=== PATIENT | female | born 1940 | race Caucasian/White ===

== ENCOUNTER → 2017-11-11 09:37 | Outpatient (CLI) | payer OTHER, SELFPAY ==
--- NOTE | 2017-11-11 | DI.MG.S_ITS ---
BILATERAL DIGITAL SCREENING MAMMOGRAM 3D/2D WITH CAD: 11/11/2017 CLINICAL: Routine screening. Family history of breast cancer. Comparison is made to exams dated: 11/01/2016 mammogram, 11/01/2015 mammogram - [facility], and 11/30/2012 mammogram - [facility]. There are scattered fibroglandular elements in both breasts. Current study was also evaluated with a Computer Aided Detection (CAD) system. There is a calcification in the right breast central to the nipple posterior depth. No other significant masses, calcifications, or other findings are seen in either breast. IMPRESSION: INCOMPLETE: NEEDS ADDITIONAL IMAGING EVALUATION The calcification in the right breast is indeterminate. Additional views with possible ultrasound are recommended. This exam was interpreted at Station ID: [id number]. NOTE: For mammograms, a report in lay terms will be sent to the patient. Approximately 15% of breast malignancies will not be visualized mammographically. In the management of a palpable breast mass, a negative mammogram must not discourage biopsy of a clinically suspicious lesion. Electronically Signed By: Shahid duarte/lissy:11/11/2017 16:03:48 copy to: Soledad Goss letter sent: Additional Imaging Needed ACR BI-RADS Category 0: Incomplete 3340F
== END ==
PROVIDERS: Family Provider Internal Medicine; PCP Internal Medicine
DX: Z12.31 Encounter for screening mammogram for malignant neoplasm of breast (principal); Z80.3 Family history of malignant neoplasm of breast; M81.0 Age-related osteoporosis without current pathological fracture; Z78.0 Asymptomatic menopausal state; E07.9 Disorder of thyroid, unspecified; Z87.891 Personal history of nicotine dependence
CPT/HCPCS: 77063; 77067; 77080

== ENCOUNTER → 2017-11-27 12:44 | Outpatient (CLI) | payer OTHER, SELFPAY ==
--- NOTE | 2017-11-27 | DI.MG.S_ITS ---
UNILATERAL RIGHT DIGITAL DIAGNOSTIC MAMMOGRAM 3D/2D WITH ADDITIONAL VIEWS: 11/27/2017 CLINICAL: Additional evaluation requested from prior study. Comparison is made to exams dated: 11/11/2017 mammogram, 11/01/2015 mammogram, and 11/01/2016 mammogram - [facility]. There are scattered fibroglandular elements in the right breast. There are linear calcifications in the right breast central to the nipple posterior depth. These are seen in additional views. No other significant masses or calcifications are seen in the breast. IMPRESSION: BENIGN The linear calcifications in the right breast are consistent with vascular calcifications and are benign. There is no mammographic evidence of malignancy. A 1 year screening mammogram is recommended. This exam was interpreted at Station ID: [id number]. NOTE: For mammograms, a report in lay terms will be sent to the patient. Approximately 15% of breast malignancies will not be visualized mammographically. In the management of a palpable breast mass, a negative mammogram must not discourage biopsy of a clinically suspicious lesion. Electronically Signed By: Ann Vera M.D. lk/:11/27/2017 14:02:20 copy to: Soledad Goss letter sent: Normal Exam ACR BI-RADS Category 2: Benign Finding(s) 3342F
--- NOTE | 2017-11-28 08:47 | DI.ECHO.S_ITS ---
Echocardiogram Report + + :Name: JOESPH HINES Study Date: 11/27/2017 Height: 61 in : :[facility] Weight: 123 lb : : Gender: Female BSA: 1.5 m2 : :: 1940 Age: 77 yrs BP: 128/62 mmHg: :Reason For Study: Fam History of Heart DZ : :Ordering Physician: Soledad : :Wolfgang Performed By: Saloni Mcdaniel : :Referring: TYRELL RADER : + + Interpretation Summary The patient was in atrial fibrillation with heart rates between 95-120 bpm during the exam. There is normal left ventricular wall thickness. The left ventricle is normal in size. The ejection fraction is estimated to be 60-65%. The aortic valve is trileaflet. There is mild aortic regurgitation. The right ventricle is normal in size and function. The right ventricular systolic pressure is estimated at 19 mmHg assuming a right atrial pressure of 3 mm Hg. -Overall this is study shows normal right and left ventricular systolic function with no significant valvular pathology. The filling pressures are normal. Procedure: A two-dimensional transthoracic echocardiogram with color flow and Doppler was performed. The study quality was technically adequate. Comparison is made with the echocardiogram of 08-05-13. The patient was in atrial fibrillation with heart rates between 95-120 bpm during the exam. Left Ventricle: Sigmoid septum. There is normal left ventricular wall thickness. The left ventricle is normal in size. The ejection fraction is estimated to be 60-65%. There are no obvious focal wall motion abnormalities noted but poor endocardial definition reduces the sensitivity for the detection of such. Diastolic function could not be accurately assessed due to atrial fibrillation. Right Ventricle: The right ventricle is normal in size and function. Normal systolic function by visual estimation. Atria: The left atrium is mildly dilated. The right atrium is mildly dilated. The interatrial septum is intact with no evidence for an atrial septal defect. Mitral Valve: The mitral valve leaflets appear mildly thickened, but open well. There is mild to moderate mitral annular calcification. There is moderate mitral regurgitation. Aortic Valve: The aortic valve is trileaflet. The aortic valve opens well. There is mild aortic valve sclerosis. There is discrete nodular thickening of the non- coronary cusp. There is mild aortic regurgitation. Tricuspid Valve: The tricuspid valve leaflets are thin and pliable. There is mild tricuspid regurgitation. The right ventricular systolic pressure is estimated at 19 mmHg assuming a right atrial pressure of 3 mm Hg. Pulmonic Valve: The pulmonic valve is not well visualized. There is trace pulmonic regurgitation. Great Vessels: The aortic root is normal size. The dimensions of the ascending aorta are normal. The aortic arch is normal in size. Abd. aorta is normal in size. The IVC is of normal diameter and collapses greater than 50% with a sniff. This suggests a low right atrial pressure of 3 mm Hg. Pericardium/ Pleura There is no pericardial effusion. There is no pleural effusion. MMode/2D Measurements & Calculations LVIDd: 3.9 cm Ao root diam: 3.2 cm LVIDs: 2.5 cm Aortic Jxn: 2.6 cm FS: 36.2 % asc Aorta Diam: 3.1 cm IVSd: 0.93 cm Ao Arch Diam (Prox Trans): 3.0 cm LVPWd: 0.61 cm LV hsu. diameter/BSA (cm/m^2): 2.6 LV sys. diameter/BSA (cm/m^2): 1.6 LA dimension: 3.9 cm RA long axis: 5.2 cm LA A2 area: 18.5 cm2 RA area: 18.0 cm2 LA A4 area: 19.4 cm2 RA vol: 53.3 ml LA length (vol): 5.1 cm RA : 34.7 ml/m2 LA vol: 59.8 ml IVC diam: 1.7 cm LA vol index: 38.9 ml/m2 RVDd major: 5.1 cm RVD1 (basal): 3.3 cm RVD2 (mid): 2.6 cm Doppler Measurements & Calculations Med Peak E' Alexander: 7.1 cm/sec TR max alexander: 200.4 cm/sec Lat Peak E' Alexander: 12.6 cm/sec TR max P.1 mmHg MV P1/2t: 62.7 msec PA V2 max: 71.5 cm/sec PA V2 mean: 50.3 cm/sec PA mean P.1 mmHg PA Accel Time: 0.11 sec MV V2 mean: 51.7 cm/sec MV P1/2t max alexander: 91.2 cm/sec MV mean P.4 mmHg MVA(P1/2t): 3.5 cm2 MV V2 VTI: 13.5 cm _ Electronically signed by: Clifford Chapman M.D. on Reading Physician:11/28/2017 08:47 AM
== END ==
PROVIDERS: Family Provider Internal Medicine; PCP Internal Medicine
DX: I08.3 Combined rheumatic disorders of mitral, aortic and tricuspid valves (principal); R92.0 Mammographic microcalcification found on diagnostic imaging of breast; I48.91 Unspecified atrial fibrillation; Z82.49 Family history of ischemic heart disease and other diseases of the circulatory system
CPT/HCPCS: 77065; 93306; G0279

== ENCOUNTER → 2017-12-18 09:07 | Outpatient (CLI) | payer OTHER, SELFPAY ==
[2017-12-18 11:02] LABS: BUN Creatinine Ratio 31.4 (6-22); Blood Urea Nitrogen 22 mg/dL (7-17); Calcium 9.3 mg/dL (8.4-10.2); Carbon Dioxide 27 mmol/L (22-32); Chloride 104 mmol/L (98-107); Cholesterol 155 mg/dL (140-199); Estimated Glomerular Filt Rate > 60.0 mL/min (>60); Glucose 84 mg/dL (80-110); HDL Cholesterol 61 mg/dL (40-60); HEMOLYSIS < 15 (0-50); LDL Cholesterol Calculated 82 mg/dL (<100); Potassium 4.3 mmol/L (3.4-5.1); Sodium 142 mmol/L (137-145); Triglycerides 58 mg/dL (35-150)
== END ==
PROVIDERS: PCP Internal Medicine; Visit Provider Internal Medicine
DX: I48.91 Unspecified atrial fibrillation (principal); E78.5 Hyperlipidemia, unspecified
CPT/HCPCS: 36415; 80048; 80061

== ENCOUNTER 2018-01-05 17:02 | Observation (INO) | payer OTHER, SELFPAY ==
[2018-01-05] VITALS (11 sets, daily range): BP systolic 117–169; BP diastolic 43–92; PULSE 63–123; RESP 14–18; TEMP 36.6; O2SAT 97–100; BMI 24.7
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
--- NOTE | 2018-01-05 17:29 | DI.RAD.S_ITS ---
PROCEDURE: XR HIP W PEL IF DONE LT 2V INDICATIONS: fall with groin pain TECHNIQUE: AP pelvis with lateral view(s) of the left hip(s). COMPARISON: [facility], CT, ABDOMEN/PELVIS WITH CONTRAST, 02/04/2016, 5:20. [facility], CR, ABDOMEN ACUTE SERIES, 02/04/2016, 4:37. [facility], CR, FEMUR LEFT, 12/16/2008, 11:50. [facility], , L-SPINE 2-3 VIEWS, 03/19/2017, 15:21. FINDINGS: Bones: There are comminuted left superior and inferior pubic ramal fractures. Pelvic ring appears intact. No suspicious bony lesions. Scoliosis and degenerative changes in lumbar spine. Soft tissues: The visualized bowel gas pattern is normal. No suspicious soft tissue calcifications. IMPRESSION: 1. No left hip fracture or dislocation. 2. Comminuted left superior and inferior pubic ramal fractures. Dictated by: Eleanor Pardo M.D. on 01/05/2018 at 18:39 Approved by: Eleanor Pardo M.D. on 01/05/2018 at 18:42
--- NOTE | 2018-01-05 18:37 | DI.CT.S_ITS ---
PROCEDURE: CT PEL WO CON INDICATIONS: multiple fractures on Xray TECHNIQUE: Noncontrast 3 mm axial sections acquired through the bony pelvis, with coronal and sagittal reformatting. COMPARISON: [facility], CR, XR HIP W PEL IF DONE LT 2V, 01/05/2018, 17:08. FINDINGS: Image quality: Excellent. Bones: There is a comminuted facture of the left superior pubic ramus with mild displacement. In addition, there is a mildly displaced oblique fracture of the left inferior pubic ramus. The hips are anatomically seated. No fracture or dislocation in left hip or proximal femurs. There is a comminuted fracture of the left sacral ala with minimal displacement. Soft tissues: No soft tissue mass or hematoma. There are numerous colonic diverticula. No acute diverticulitis. IMPRESSION: 1. Comminuted fracture of the left superior pubic ramus. 2. Moderate displaced left inferior pubic ramal fracture. 3. Left sacral alar fracture with minimal displacement. 4. Diverticulosis without acute diverticulitis. Dictated by: Eleanor Pardo M.D. on 01/05/2018 at 20:10 Approved by: Eleanor Pardo M.D. on 01/05/2018 at 20:16
[2018-01-05 18:50] LABS: Add Manual Diff / Slide Review NO; Basophils Percent Auto 0.6 % (0-2); Eosinophils Percent Auto 2.9 % (2-4); Hematocrit 41.7 % (36-46); Hemoglobin 13.8 g/dL (12.0-16.0); Lymphocytes Percent Auto 21.2 % (25-40); Mean Corpuscular HGB Conc 33.1 % (30-36); Mean Corpuscular Hemoglobin 27.9 PG (26-34); Mean Corpuscular Volume 84.5 fL (80-100); Monocytes Percent Auto 6.8 % (3-14); Neutrophils Absolute Auto 5700 /uL (3000-5900); Neutrophils Percent Auto 68.5 % (50-75); Platelet Count 261 X10^3/uL (150-400); Red Blood Cell Count 4.94 X10^6/uL (4.0-5.2); Red Cell Distribution Width 15.4 % (11.6-14.8); White Blood Cell Count 8.3 X10^3/uL (4.5-11.0)
[2018-01-05] MEDS: HYDROMORPHONE 0.5 MG INJ IV (19:02)
[2018-01-05] MEDS: SODIUM CHLORIDE 0.9% 1,000 ML 1000 ML IV (19:03)
[2018-01-05] MEDS: ONDANSETRON 4 MG/2 ML INJ IV (19:03)
[2018-01-05 19:34] LABS: BUN Creatinine Ratio 33.8 (6-22); Blood Urea Nitrogen 27 mg/dL (7-17); Calcium 10.2 mg/dL (8.4-10.2); Carbon Dioxide 31 mmol/L (22-32); Chloride 101 mmol/L (98-107); Estimated Glomerular Filt Rate > 60.0 mL/min (>60); Glucose 86 mg/dL (80-110); HEMOLYSIS < 15 (0-50); Potassium 4.1 mmol/L (3.4-5.1); Sodium 140 mmol/L (137-145)
--- NOTE | 2018-01-05 20:11 | PC.NURSE ---
+ 600 cc in bladder after void on bed win 30 min prior to cath placement. MD aware of possible urinary retention. Pt tolerated procedure well.
[2018-01-06 00:05] VITALS: BP 95/53; PULSE 104; RESP 18; TEMP 36.5; O2SAT 97
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
[2018-01-06] MEDS: SODIUM CHLORIDE 0.9% 1,000 ML 125 ML IV (00:47)
[2018-01-06 04:20] VITALS: BP 98/68; PULSE 97; RESP 20; TEMP 36.5; O2SAT 94
[2018-01-06 11:30] VITALS: BP 127/58; PULSE 17; RESP 17; TEMP 36.8; O2SAT 96
--- NOTE | 2018-01-06 13:17 | CM.DANOTE ---
Discharge Planning/Care Management Discharge Assessment Start: 01/06/18 13:11 Freq: Status: Active Protocol: Document 01/06/18 13:11 (Rec: 01/06/18 13:16 [id number]) Discharge Planning Assessment Assigned Application Defense Manager TERRY Monroy Advance Directives? No History Provided By Patient Family Member Medical Record Has Patient been admitted in last 30 No days? Prior Living Arrangements House Household Members spouse Type of transporation used prior to Drives own vehicle admit Independent with ADL's Yes Is patient alert and oriented? Yes Caregiver for Another No Patient/Family Preference Home with Home Health Comment Patient resides on [facility]. Patient is pending ortho consult. Discharge Plan Home with Home Health [facility] Physical Therapy Occupational Therapy Referrals Initiated Home Health Additional Comment Pending Ortho consult. If patient plan is home with home health No : Has signed face to face form been completed? Medicare Choice List Provided Yes SNF/HH Preference [facility]. Whiteboard Updated in Patient Room with Yes name and ext. # of Application Defense Manager Review Status In Process Please Provide Date Initial DC 01/06/18 Assessment Was Performed Next Review Type Continued Stay Review Patient is currently in observation status pending Ortho consult and PT eval. Patient has [facility] and resides on [facility]. Patient and sister were in room. As patient's treatments needs are unsure at this time SW discussed all possible options such as SNF or HH. Patient's goals are to discharge home with . Medicare choice list was provided but since patient resides on [facility] options are limited. SW confirmed with [facility] they accept [place] and service the [place]. Patient agreeable to [facility]. Plan: pending ortho consult and PT eval. At this time patient is hopeful to discharge home with . F2F will be needed and referral to [facility] needs to be completed as there are no progress notes available to SW at this time.
[2018-01-06] MEDS: IBUPROFEN 400 MG TABLET 800 MG PO ×3 (14:40→22:35)
[2018-01-06 15:30] VITALS: BP 104/57; PULSE 97; RESP 20; TEMP 36.7; O2SAT 94; O2SAT 98
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
--- NOTE | 2018-01-06 16:22 | PC.NURSE ---
Addendum entered by Lauren Rodríguez R.N. 01/06/18 17:10: tele removed per md order. shira remains patent. pt states would rather keep it in through the night as it helps with her hopefully being able to sleep. PT/Ot unable to see pt tonight. will see in am. weight bear as tolerated. pt eager to work with them. Original Note: Assumed care of pt from outgoing shift. pt up ion chair, complains of soreness to left hip. fist sized bruise starting to form, some abrasions to elbow and l hip. Pt states she feels better and is excited to work with physical therapy. Pt uses call light and waits for assistance. pt denies further needs at this time. pt compliant and pleasant with staff. vss. will continue to monitor pt for safety.
[2018-01-06] MEDS: DOCUSATE 100 MG CAPSULE PO (20:59)
[2018-01-06 23:20] VITALS: BP 126/72; PULSE 96; RESP 18; TEMP 36.9; O2SAT 98
[2018-01-07] VITALS: O2SAT 98
[2018-01-07 03:29] VITALS: BP 104/64; PULSE 62; RESP 17; TEMP 36.4; O2SAT 97
[2018-01-07] MEDS: IBUPROFEN 400 MG TABLET 800 MG PO (06:38)
[2018-01-07 07:35] VITALS: BP 102/67; PULSE 60; RESP 16; TEMP 36.5; O2SAT 96
[2018-01-07 08:55] VITALS: O2SAT 97
[2018-01-07] MEDS: ASPIRIN EC 81 MG TABLET PO (09:02)
[2018-01-07] MEDS: DOCUSATE 100 MG CAPSULE PO (09:02)
[2018-01-07] MEDS: ACETAMINOPHEN 325 MG TABLET 650 MG PO (10:37)
--- NOTE | 2018-01-07 10:45 | PT.IIE ---
Current Diagnoses Age-related osteoporosis without current pathological fracture (01/05/18) Unspecified fracture of left pubis, initial encounter for closed fracture (01/05/18) Surgical History (Last Reviewed 01/06/18 @ 15:42 by Rhonda Esqueda MD) No pertinent past surgical history (Acute) Medical History (Last Reviewed 01/06/18 @ 15:42 by Rhonda Esqueda MD) Healthy adult (Acute) Physical Therapy Inpatient Evaluation/Re-Eval M1 PT/OT-IP Prior Functional Status Start: 01/06/18 12:33 Freq: NEEDED Status: Active Protocol: Document 01/07/18 10:45 AB (Rec: 01/07/18 12:40 AB [id number]) Medical Review Prior Functional Status Medical History Reviewed Yes Communication able to make needs known Mobility and Gait stated that she is very active prior to hospitalization and independent with all mobilities and ambulation without AD Social History Household Members spouse Living Arrangements House Number of Floors (Floors) One Floor Number of Stairs To Enter/Railing? no steps to enter Home Environment High Toilet Tub/Shower Built-In Shower Seat Home Equipment Front Wheel Walker Straight Cane Raised Toilet Seat w/Armrests Hand Held Shower Grab Bars Near Toilet Grab Bars In Shower Employment Status Retired Additional Social History Comment pt's sister also lives close by and can assist pt M2 PT-IP Current Condition Start: 01/06/18 12:33 Freq: NEEDED Status: Active Protocol: Document 01/07/18 10:45 AB (Rec: 01/07/18 12:40 AB [id number]) Physical Therapy Current Condition Current Condition Evaluation Date 01/07/18 Treatment Diagnosis s/p fall with L pelvic fx; difficulty in walking Onset Date Weight Bearing Status Weight Bearing Status Weight Bear as Tolerated M3 PT-IP Subjective Start: 01/06/18 12:33 Freq: NEEDED Status: Active Protocol: Document 01/07/18 10:45 AB (Rec: 01/07/18 12:40 AB [id number]) Subjective Physical Therapy Visit Type Type Initial Evaluation Visit Start Time 10:45 Visit Stop Time 11:25 Total Visit Minutes 40 Number of GROUT MACHINE TENDER Visits 0 Physical Therapy Visit Comments Patient Comments pt agreeable to do PT Therapy Pain Assessment Pain When Pain Assessed During Mobility Pain Present Pain Present Pain Reported Location Left Groin Intensity 6 Scale Used Numeric (1 - 10) Description Pulling Pain Management Techniques Timing of Activity with Medications M4 PT-IP Mobility and Gait Start: 01/06/18 12:33 Freq: NEEDED Status: Active Protocol: Document 01/07/18 10:45 AB (Rec: 01/07/18 12:40 AB [id number]) PT-Bed Mobility Assessment Supine to Sit Supine to Sit Standby Assistance Sit to Supine Sit to Supine Standby Assistance Scooting Scooting to Edge of Bed Standby Assistance Scooting Up and Down in Bed Standby Assistance PT-Transfer Assessment Sit to and From Stand Sit to and from Stand Standby Assistance Contact Guard Assistance Equipment Transfer Assistive Device Bed Rail Front Wheeled Walker Orthotic/Prosthetic Devices or Brace: No Transfers Transfer Destination Bed Chair Transfer Technique Stand Step Pivot Transfer Ability Level of Assist Standby Assistance Contact Guard Assistance 1 Person Assistance Use of Upper Extremities Gait Assessment Gait Gait Assistance Required: Contact Guard Assist Distance (Feet) 30 Able to Maintain Weight Bearing Status Yes During Gait Assistive Devices Assistive Device Gait Belt Front Wheeled Walker Orthotic/Prosthetic Devices or Brace: No Gait Deviations General Gait Pattern Antalgic Decreased Stride Length Decreased Feet Clearance Factors Limiting Gait Function Factors Limiting Gait Function Decreased Activity Tolerance Decreased Strength Limited Range of Motion Pain Poor Balance Poor Safety Awareness PT-Balance Assessment Sitting Balance and Reactions Static Sitting Balance Ability Good Dynamic Sitting Balance Ability Good Standing Balance and Reactions Static Standing Balance Ability Fair Dynamic Standing Balance Ability Fair Device Used FWW M5 PT-IP Objective Assessments Start: 01/06/18 12:33 Freq: NEEDED Status: Active Protocol: Document 01/07/18 10:45 AB (Rec: 01/07/18 12:40 AB [id number]) Orientation Orientation/Cognition Level of Alertness Alert Orientation Name Age Birthday Month Date Year Day of Week Place Situation Safety Awareness Understands Safety Issues Strength Lower Extremity Strength Assessment Left Impaired Hip 3-/5 Knee 4-/5 Coordination Assessment Gross Coordination Gross Coordination WNL Sensation Assessment Sensation Gross Sensation WNL M6 PT-IP Treatment Start: 01/06/18 12:33 Freq: NEEDED Status: Active Protocol: Document 01/07/18 10:45 AB (Rec: 01/07/18 12:40 AB [id number]) Physical Therapy Treatment Education Education Provided Precautions Weight Bearing Status Safety M7 PT-IP Assessment and Plan Start: 01/06/18 12:33 Freq: NEEDED Status: Active Protocol: Document 01/07/18 10:45 AB (Rec: 01/07/18 12:40 AB [id number]) PT Summary Assessment and Plan Potential Rehabilitation Potential Good Status of Condition at Evaluation Stable Summary Impairments Pain ROM Strength Balance Cognition Bed Mobility Transfers Gait Activity Tolerance Assessment Summary Pt requiring SBA to CGA with mobility using FWW and will have spouse or sister to assist her at home. pt will need homehealth PT at home to improve mobility and ambulation. pt may go home when medically stable. Goals Bed Mobility Goal Independent Transfer Goal Independent Front Wheeled Walker Gait Goal Independent Front Wheel Walker Gait Distance 150 Other Goals short term goals: increase bed mobility and transfers to independent jail goals: increase ambulation using FWW to 150 ft independent Days to Meet Goals 2 Frequency of Treatment Frequency Of Treatment Twice a Day Treatment Plan Physical Therapy Treatment Plan Bed Mobility Training Transfer Training Gait Training Therapeutic Exercise Balance Retraining Post Op Education Discharge Planning Hot or Cold Pack Neuromuscular Re-ed Coordination Retraining Manual Therapy Recommendations To Nursing Amount of Assist Needed 1 Person Assist Discharge Recommendations PT Discharge Recommendations Home with Assistance Home Health
--- NOTE | 2018-01-07 10:45 | PT.IIE ---
Current Diagnoses Age-related osteoporosis without current pathological fracture (01/05/18) Unspecified fracture of left pubis, initial encounter for closed fracture (01/05/18) Surgical History (Last Reviewed 01/06/18 @ 15:42 by Rhonda Esqueda MD) No pertinent past surgical history (Acute) Medical History (Last Reviewed 01/06/18 @ 15:42 by Rhonda Esqueda MD) Healthy adult (Acute) Physical Therapy Inpatient Evaluation/Re-Eval M1 PT/OT-IP Prior Functional Status Start: 01/06/18 12:33 Freq: NEEDED Status: Active Protocol: Document 01/07/18 10:45 AB (Rec: 01/07/18 12:40 AB [id number]) Medical Review Prior Functional Status Medical History Reviewed Yes Communication able to make needs known Mobility and Gait stated that she is very active prior to hospitalization and independent with all mobilities and ambulation without AD Social History Household Members spouse Living Arrangements House Number of Floors (Floors) One Floor Number of Stairs To Enter/Railing? no steps to enter Home Environment High Toilet Tub/Shower Built-In Shower Seat Home Equipment Front Wheel Walker Straight Cane Raised Toilet Seat w/Armrests Hand Held Shower Grab Bars Near Toilet Grab Bars In Shower Employment Status Retired Additional Social History Comment pt's sister also lives close by and can assist pt M2 PT-IP Current Condition Start: 01/06/18 12:33 Freq: NEEDED Status: Active Protocol: Document 01/07/18 10:45 AB (Rec: 01/07/18 12:40 AB [id number]) Physical Therapy Current Condition Current Condition Evaluation Date 01/07/18 Treatment Diagnosis s/p fall with L pelvic fx; difficulty in walking Onset Date Weight Bearing Status Weight Bearing Status Weight Bear as Tolerated M3 PT-IP Subjective Start: 01/06/18 12:33 Freq: NEEDED Status: Active Protocol: Document 01/07/18 10:45 AB (Rec: 01/07/18 12:40 AB [id number]) Subjective Physical Therapy Visit Type Type Initial Evaluation Visit Start Time 10:45 Visit Stop Time 11:25 Total Visit Minutes 40 Number of PROOF LOAD MECHANIC Visits 0 Physical Therapy Visit Comments Patient Comments pt agreeable to do PT Therapy Pain Assessment Pain When Pain Assessed During Mobility Pain Present Pain Present Pain Reported Location Left Groin Intensity 6 Scale Used Numeric (1 - 10) Description Pulling Pain Management Techniques Timing of Activity with Medications M4 PT-IP Mobility and Gait Start: 01/06/18 12:33 Freq: NEEDED Status: Active Protocol: Document 01/07/18 10:45 AB (Rec: 01/07/18 12:40 AB [id number]) PT-Bed Mobility Assessment Supine to Sit Supine to Sit Standby Assistance Sit to Supine Sit to Supine Standby Assistance Scooting Scooting to Edge of Bed Standby Assistance Scooting Up and Down in Bed Standby Assistance PT-Transfer Assessment Sit to and From Stand Sit to and from Stand Standby Assistance Contact Guard Assistance Equipment Transfer Assistive Device Bed Rail Front Wheeled Walker Orthotic/Prosthetic Devices or Brace: No Transfers Transfer Destination Bed Chair Transfer Technique Stand Step Pivot Transfer Ability Level of Assist Standby Assistance Contact Guard Assistance 1 Person Assistance Use of Upper Extremities Gait Assessment Gait Gait Assistance Required: Contact Guard Assist Distance (Feet) 30 Able to Maintain Weight Bearing Status Yes During Gait Assistive Devices Assistive Device Gait Belt Front Wheeled Walker Orthotic/Prosthetic Devices or Brace: No Gait Deviations General Gait Pattern Antalgic Decreased Stride Length Decreased Feet Clearance Factors Limiting Gait Function Factors Limiting Gait Function Decreased Activity Tolerance Decreased Strength Limited Range of Motion Pain Poor Balance Poor Safety Awareness PT-Balance Assessment Sitting Balance and Reactions Static Sitting Balance Ability Good Dynamic Sitting Balance Ability Good Standing Balance and Reactions Static Standing Balance Ability Fair Dynamic Standing Balance Ability Fair Device Used FWW M5 PT-IP Objective Assessments Start: 01/06/18 12:33 Freq: NEEDED Status: Active Protocol: Document 01/07/18 10:45 AB (Rec: 01/07/18 12:40 AB [id number]) Orientation Orientation/Cognition Level of Alertness Alert Orientation Name Age Birthday Month Date Year Day of Week Place Situation Safety Awareness Understands Safety Issues Strength Lower Extremity Strength Assessment Left Impaired Hip 3-/5 Knee 4-/5 Coordination Assessment Gross Coordination Gross Coordination WNL Sensation Assessment Sensation Gross Sensation WNL M6 PT-IP Treatment Start: 01/06/18 12:33 Freq: NEEDED Status: Active Protocol: Document 01/07/18 10:45 AB (Rec: 01/07/18 12:40 AB [id number]) Physical Therapy Treatment Education Education Provided Precautions Weight Bearing Status Safety M7 PT-IP Assessment and Plan Start: 01/06/18 12:33 Freq: NEEDED Status: Active Protocol: Document 01/07/18 10:45 AB (Rec: 01/07/18 12:40 AB [id number]) PT Summary Assessment and Plan Potential Rehabilitation Potential Good Status of Condition at Evaluation Stable Summary Impairments Pain ROM Strength Balance Cognition Bed Mobility Transfers Gait Activity Tolerance Assessment Summary Pt requiring SBA to CGA with mobility using FWW and will have spouse or sister to assist her at home. pt will need homehealth PT at home to improve mobility and ambulation. pt may go home when medically stable. Goals Bed Mobility Goal Independent Transfer Goal Independent Front Wheeled Walker Gait Goal Independent Front Wheel Walker Gait Distance 150 Days to Meet Goals 2 Frequency of Treatment Frequency Of Treatment Twice a Day Treatment Plan Physical Therapy Treatment Plan Bed Mobility Training Transfer Training Gait Training Therapeutic Exercise Balance Retraining Post Op Education Discharge Planning Hot or Cold Pack Neuromuscular Re-ed Coordination Retraining Manual Therapy Recommendations To Nursing Amount of Assist Needed 1 Person Assist Discharge Recommendations PT Discharge Recommendations Home with Assistance Home Health
--- NOTE | 2018-01-07 11:00 | OT.IP.EVAL ---
Current Diagnoses Age-related osteoporosis without current pathological fracture (01/05/18) Unspecified fracture of left pubis, initial encounter for closed fracture (01/05/18) Past Medical History (Last Reviewed 01/06/18 @ 15:42 by Rhonda Esqueda MD) Healthy adult (Acute) Surgical History (Last Reviewed 01/06/18 @ 15:42 by Rhonda Esqueda MD) No pertinent past surgical history (Acute) Occupational Therapy Inpatient Evaluation/Re-Eval M1 PT/OT-IP Prior Functional Status Start: 01/06/18 12:33 Freq: NEEDED Status: Active Protocol: Document 01/07/18 11:00 PJM (Rec: 01/07/18 17:43 PJM [email or web address]) Medical Review Prior Functional Status Medical History Reviewed Yes Diet/Fluid Consistency Regular Communication WNL Mobility and Gait stated that she is very active prior to hospitalization and independent with all mobilities and ambulation without AD Activities of Daily Living and IADL's independent with all self care , IADLS, driving Prior Functional Level (Other details) Pt runs and rides her bike. Social History Household Members spouse Living Arrangements House Number of Floors (Floors) One Floor Number of Stairs To Enter/Railing? no steps to enter Home Environment High Toilet Tub/Shower Built-In Shower Seat Home Equipment Front Wheel Walker Straight Cane Hand Held Shower Grab Bars Near Toilet Grab Bars In Shower Employment Status Retired Additional Social History Comment pt's sister also lives in same building and can assist pt PRN M2 OT-IP Current Condition Start: 01/06/18 14:09 Freq: Status: Active Protocol: Document 01/07/18 11:00 PJM (Rec: 01/07/18 17:43 PJM [email or web address]) Occupational Therapy Current Condition Current Condition Evaluation Date 01/07/18 Treatment Diagnosis decreased self care and functional mobility Diagnosis Onset Date 01/05/18 Weight Bearing Status Weight Bearing Status Weight Bear as Tolerated M3 OT- IP Subjective and Pain Start: 01/06/18 14:09 Freq: Status: Active Protocol: Document 01/07/18 11:00 PJM (Rec: 01/07/18 17:43 PJM [email or web address]) OT- Subjective Occupational Therapy Visit Type Type Initial Evaluation Visit Start Time 09:46 Visit Stop Time 11:00 Total Visit Minutes 74 Notes Pt's sister here for education this session. Occupational Therapy Visit Comments Patient Comments I want to go home on the 1:00 [place] to [place]. Patient/Caregiver Goals to regain independence in self care, IADLS OT Pain Assessment Pain When Pain Assessed After Treatment Pain Present Pain Present Pain Reported Location Left Groin Intensity 3 Scale Used Numeric (1 - 10) Description Aching Acute Pain Behaviors Facial Grimacing Guarding Management Techniques Distraction Re-positioning Timing of Activity with Medications M4 OT- IP ADL's Start: 01/06/18 14:09 Freq: Status: Active Protocol: Document 01/07/18 11:00 PJ (Rec: 01/07/18 17:43 [facility] [id number]) OT [id number] General Evaluation Self-Feeding Ability Independent OT ADL-Grooming General Evaluation Grooming Ability Standby Assistance Comments OT Grooming Comments standing at sink with FWW OT ADL-Oral Care General Eval Oral Care Ability Standby Assistance Comments Oral Care Comments standing at sink with FWW OT ADL-Dressing General Eval Upper Body Dressing Ability Independent Lower Body Dressing Ability Standby Assistance Areas Needing Assistance Underpants/Brief Pants/Shorts Socks Shoes Assistive Devices Dressing Assistive Devices Professor Of Music Comments OT Dressing Comments pt declines sock aid and able to don B socks today without out it. Family can assist PRN. Pt using analytical scientist to don brief and pants. Pt wearing slip on shoes. OT ADL-Toileting General Evaluation Toileting Ability Independent OT ADL-Bathing Bathing Type Bathing Type Shower General Evaluation Bathing Ability Standby Assistance Devices Bathing Equipment Hand Held Shower Sprayer Shower Chair with Arms Grab Bars Comments OT Bathing Comments Pt stood for 90% of shower with no LOB noted. Pt does use grab abrs and installing these today for her . M5 OT- IP IADL's Start: 01/06/18 14:09 Freq: Status: Active Protocol: Document 01/07/18 11:00 PJ (Rec: 01/07/18 17:43 [facility] [id number]) OT-Instrumental Activities of Daily Living Deficits IADL Deficits Identified Deficits Home Safety Awareness Awareness of Need for Assistance at Home Good Awareness Ability to Problem Solve Emergency Able to Problem Solve Situations Medication Management Medication Management No Deficits Identified Money Management Money Management No Deficits Identified Meal Preparation Meal Preparation Caregiver Provides Assist Meal Preparation Comments family to assist PRN Research And Development Specialist Research And Development Specialist Caregiver Provides Assist Research And Development Specialist Comments family to assist PRN Driving Driving Caregiver Provides Assist Driving Comments family to assist PRN M6 OT- IP Functional Cognition Start: 01/06/18 14:09 Freq: Status: Active Protocol: Document 01/07/18 11:00 PJM (Rec: 01/07/18 17:43 PJ [id number]) Cognitive Factors Limiting Selfcare Function Cognitive Ability Level of Alertness Alert Patient Orientation Name Age Birthday Month Date Year Day of Week Place Situation Attention Span Ability Capable of Focused Attention Capable of Sustained Attention Ability to Follow Commands Able to Follow Multi-Step Commands Memory Description No Deficits Noted Safety Awareness No Deficits Noted Problem Solving Ability No deficits Noted Executive Function Ability No Deficits Noted Abstract Thinking Ability No Deficits Noted Cognitive Comments Cognitive Assessment Comments WNL, good problem solving for adapted ADL skills OT- Vision and Hearing OT- Hearing Assessment OT- Hearing Assessment WFL OT- Vision Assessment Vision History Cataracts Visual Acuity Glasses All The Time Vision Assessment Comments B cataract surgery pending per pt M7 OT- IP Mobility and Balance Start: 01/06/18 14:09 Freq: Status: Active Protocol: Document 01/07/18 11:00 PJM (Rec: 01/07/18 17:43 PJ [id number]) OT-Transfer Assessment Sit to and From Stand Sit to and from Stand Standby Assistance Contact Guard Assistance Transfers Transfer Ability Standby Assistance Contact Guard Assistance Technique Transfer Destination Car Chair Shower Stall Toilet Transfer Technique Stand Step Pivot Devices Transfer Assistive Devices Front Wheeled Walker Comments Mobility Comments Provided education and demo re : sit and swivel technique into unusual square bathtub with wide rim and built in corner seat. Also provided education/demo re: car transfers. OT- Gait Assessment Gait Gait Assistance Required: Standby Assistance Contact Guard Assist Distance (Feet) 20 Assistive Devices Assistive Device Gait Belt Front Wheeled Walker Comments Gait Ability Comments Provided education re: gait sequence and technique. OT- Balance Assessment Sitting Balance and Reactions Static Sitting Balance Ability Normal Dynamic Sitting Balance Ability Good Standing Balance and Reactions Static Standing Balance Ability Good Dynamic Standing Balance Ability Good Comments Other Balance Tests/Deviations/Treatment during shower and standing for : lower body dressing M8 OT- IP Objective Assessments Start: 01/06/18 14:09 Freq: Status: Active Protocol: Document 01/07/18 11:00 PJM (Rec: 01/07/18 17:43 PJM [id number]) OT Gross Range of Motion Upper Extremity Range of Motion Assessment Within Functional Limits OT Strength Upper Extremity Strength Assessment Within Functional Limits OT- Coordination Assessment Comments Coordination Comments BUE WFL OT-Muscle Tone Assessment Muscle Tone WNL Yes OT Sensation Assessment Comments Summary Comments BUE WNL M9 OT- IP Assessment and Plan Start: 01/06/18 14:09 Freq: Status: Active Protocol: Document 01/07/18 11:00 PJM (Rec: 01/07/18 17:43 PJM [id number]) OT Summary Assessment and Plan Potential Rehabilitation Potential Excellent Analytic Complexity at Evaluation Low Summary Progress Towards Goals Safe For Discharge Assessment Summary Low complexity OT assessment and all pt/family education completed today re: adapted ADL's, functional bathroom, car transfers on this 77 yr old pt s/p superior pubic rami fx (non surgical, WBAT). Pt very motivated with excellent participation and effort throughout session. Supportive sister and will provide 24 hr assist at d/c PRN. Pt plans to d/c home today. No further OT services needed. Frequency of Treatment Frequency Of Treatment Discharge Discharge Recommendations OT Discharge Recommendations Home with 24/ Assist Home Equipment Needs installing grab bars near tub and shower today.
--- NOTE | 2018-01-07 11:48 | CM.DPC ---
Referral faxed to Treva Enriquez
--- NOTE | 2018-01-07 12:07 | CM.DPC ---
DCP: continued: case received and met with pt and her sister. Pt says she is expecting to d/c today and [place] [facility] [place] up in room with a FWW. Reviewed notes and [facility]. Both do expect pt to d/c today but have seen her yet this morning. Face/Face is completed. OT/PT home health orders are completed. Choice list: discussed with pt. Decision: [place] [facility] [place]erral to :Lucía/[facility] who confirms can see pt within 48 hours. Brochure and update provided to pt and her sister. P: home today once order is received.
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
--- NOTE | 2018-01-07 13:14 | PC.NURSE ---
discharge PIV removed this AM with silva catheter. Pt was able to urinate without issue after silva removal. up with FWW and SBA. worked with PT and OT. was able to shower per her request. d/c instructions provided to pt and her sister. notified to f/u with PCP. HH was set up by program services planner and pt aware she will get call within 48 hr for first visit. pt left in w/c.
== END 2018-01-07 13:00 | disposition home or self-care (01) ==
LOC: ED 19:51 → AC 21:30
PROVIDERS: Admitting Provider Internal Medicine; Emergency Provider Emergency Medicine; Family Provider Internal Medicine; PCP Internal Medicine; Visit Provider Internal Medicine
DX: S32.502A Unspecified fracture of left pubis, initial encounter for closed fracture (principal); S32.10XA Unspecified fracture of sacrum, initial encounter for closed fracture; M81.0 Age-related osteoporosis without current pathological fracture; M25.552 Pain in left hip; V19.3XXA Pedal cyclist (driver) (passenger) injured in unspecified nontraffic accident, initial encounter; Y93.55 Activity, bike riding
CPT/HCPCS: 36591; 51701; 72192; 73502; 80048; 81003; 85025; 93005; 96361; 96374; 96375; 97161; 97165; 97530; 97535; 99284; 99285; G0378; J1170; J2405

== ENCOUNTER 2018-05-20 02:06 | Emergency (ER) | payer OTHER, SELFPAY ==
[2018-01-05 22:28] VITALS: BMI 24.7
--- NOTE | 2018-05-20 02:09 | DI.RAD.S_ITS ---
PROCEDURE: XR CHEST 1V INDICATIONS: chest pain TECHNIQUE: One view of the chest was acquired. COMPARISON: [facility], CHEST 1 VIEW, 02/04/2016, 8:52. [facility], CHEST 1 VIEW, 12/16/2014, 9:03. FINDINGS: Surgical changes and devices: None. Lungs and pleura: Lungs are abnormal, with a mild interstitial prominence it appears accentuated with reference to the comparison from 2016. No pleural effusions or pneumothorax. Mediastinum: Mediastinal contours appear normal. Heart size is normal. Bones and chest wall: No suspicious bony lesions. Overlying soft tissues appear unremarkable. IMPRESSION: Mild interval increase in interstitial prominence within the lung parenchyma from 2016. This could represent an early phase of acute CHF. Cardiomegaly, however, is not present. In the setting of chest pain acute cardiogenic origin may explain this appearance. Dictated by: Corbin Lion M.D. on 05/20/2018 at 7:56 Approved by: Corbin Lion M.D. on 05/20/2018 at 8:02
[2018-05-20 02:10] VITALS: BP 106/72; PULSE 103; RESP 22; TEMP 36.8; O2SAT 100; BMI 23.8
--- NOTE | 2018-05-20 02:14 | ED_ITS ---
HPI - Chest Pain General Chief Complaint: Chest Pain Stated Complaint: Chest pain Time Seen by Provider: 05/20/18 02:09 Source: patient and EMS Mode of arrival: EMS Limitations: no limitations History of Present Illness HPI narrative: Patient is a 77-year-old female who presents with chest pain radiating up into her neck. She said it woke her from her sleep. She does have a history of AFib in AF but no known coronary artery disease. She has received aspirin and nitroglycerin prior to arrival without any relief. She denies any radiation into her back. She does have some pain with inspiration. She says it hurts every time she takes a breath. It does seem to be just going from her epigastric to her chin. She had [place] food at lunch and an apple at dinner. She was feeling well earlier in the day. She is worried because her brother of an aortic dissection MD complaint: chest pain Onset (ago): hour(s) Related Data Home Medications Medication Instructions Recorded Confirmed thyroid (pork) [Nature-Throid] 65 mg PO DAILY #0 06/01/10 01/05/18 Calcium 1 tab PO DAILY 01/05/18 01/05/18 CoQ-10 1 cap PO DAILY 01/05/18 01/05/18 Fish Oil 1 cap PO DAILY 01/05/18 01/05/18 Vitamin D3 1 cap PO DAILY 01/05/18 01/05/18 aspirin 81 mg PO DAILY 01/05/18 01/05/18 magnesium 1 tab PO DAILY 01/05/18 01/05/18 multivitamin 1 tab PO DAILY 01/05/18 01/05/18 Allergies Allergy/AdvReac Type Severity Reaction Status Date / Time prochlorperazine Allergy Unknown Verified 01/05/18 19:01 [PROCHLORPERAZINE] Review of Systems Review of Systems ROS Unobtainable: All systems reviewed & are unremarkable except as noted in HPI and below Constitutional Denies chills, Denies fever(s), Denies lethargy and Denies weakness Cardiovascular Reports as per HPI Gastrointestinal Gastrointestinal: Denies abdominal pain, Denies change in bowel habits, Denies diarrhea, Denies nausea and Denies vomiting Genitourinary Denies hematuria, Denies flank pain, Denies urinary incontinence and Denies urinary urgency Musculoskeletal Denies back pain, Denies muscle weakness, Denies numbness and Denies tingling Integumentary/Breasts Denies pruritus, Denies erythema, Denies rash and Denies wounds Neurologic Denies numbness, Denies tingling and Denies weakness PFSH Medical History Atrial fibrillation (Acute) Healthy adult (Acute) Surgical History No pertinent past surgical history (Acute) Family History Brother Dissecting aneurysm of thoracic aorta Social History household members: spouse Smoking Status: Former smoker alcohol intake: never Family History Brother Dissecting aneurysm of thoracic aorta Social History household members: spouse Smoking Status: Former smoker alcohol intake: never Exam Initial Vital Signs Initial Vital Signs: Vital Signs Temperature 98.2 F 05/20/18 02:10 Pulse Rate 103 H 05/20/18 02:10 Respiratory Rate 22 05/20/18 02:10 Blood Pressure 106/72 05/20/18 02:10 Pulse Oximetry 100 05/20/18 02:10 GENERAL: Alert petite anxious female no acute distress HEENT: Head atraumatic,EOMI, pupils reactive, face symmetric, moist mucous membranes CARDIOVASCULAR: Regular rate and rhythm without murmurs, rubs or gallops. RESPIRATORY: Breath sounds equal bilaterally, no wheezes rales or rhonchi. ABDOMEN: Soft, nontender. Normoactive bowel sounds all 4 quadrants. No guarding or rebound. EXTREMITIES: Normal range of motion, no clubbing or edema. Neurovascularly intact NEUROLOGICAL: Alert and oriented x4.Normal gait and speech. Cranial nerves II through XII grossly intact. SKIN: Warm, dry, no laceration, no petechiae, no rashes or lesions. Course Orders Ordered: ED Orders 05/20/18 02:09 XR chest 1V Stat EKG-12 Lead Stat 05/20/18 02:15 B Type Natriuretic Peptide Stat Complete Blood Count AUTO DIFF Stat Comprehensive Metabolic Panel Stat Lipase Stat Partial Thromboplastin Time Stat Prothrombin Time INR Stat Troponin & CK Cardiac Panel Stat 05/20/18 02:48 Urine Microscopic Stat 05/20/18 03:13 CT angio chest abdomen pelvis Stat 05/20/18 04:15 Troponin I Stat Sodium Chloride (Normal Saline 0.9%) 1,000 mls @ 150 mls/hr IV CONT FAIZA Last Admin: 05/20/18 02:33 Dose: 150 mls/hr Discontinued Medications Morphine Sulfate (Morphine) 2 mg IV NOW ONE Stop: 05/20/18 02:56 Last Admin: 05/20/18 03:17 Dose: 2 mg Ondansetron HCl (Zofran) 4 mg IV NOW ONE Stop: 05/20/18 02:56 Last Admin: 05/20/18 03:17 Dose: 4 mg Pantoprazole Sodium (Protonix) 40 mg IV NOW ONE Stop: 05/20/18 02:10 Last Admin: 05/20/18 02:33 Dose: 40 mg Vital Signs - 8 hr 05/20/18 02:10 05/20/18 03:39 Temperature 98.2 F Pulse Rate 103 H 102 H Respiratory Rate 22 16 Blood Pressure 106/72 Blood Pressure [Right Arm] 111/66 Pulse Oximetry 100 97 MDM - Chest Pain Medical Records Data Attestation: I reviewed the patient's medical records. Lab Data Attestation: I reviewed the patient's lab results. Result diagrams: 05/20/18 02:15 05/20/18 02:15 Lab Results 05/20/18 05/20/18 05/20/18 Range/Units 02:15 02:15 02:15 WBC 11.8 H (4.5-11.0) X10^3/uL RBC 4.90 (4.0-5.2) X10^6/uL Hgb 13.6 (12.0-16.0) g/dL Hct 42.0 (36-46) % MCV 85.7 (80-100) fL MCH 27.8 (26-34) PG MCHC 32.5 (30-36) % RDW 14.5 (11.6-14.8) % Plt Count 291 (150-400) X10^3/uL Neut % (Auto) 72.6 (50-75) % Lymph % (Auto) 19.3 L (25-40) % Lane % (Auto) 6.2 (3-14) % Eos % (Auto) 1.5 L (2-4) % Baso % (Auto) 0.4 (0-2) % Neut # (Auto) 8500 H (9460-1292) /uL Lymph # (Auto) 2300 (4448-1980) /uL Lane # (Auto) 700 (0-900) /uL Eos # (Auto) 200 (0-450) /uL Baso # (Auto) 0 (0-100) /uL PT 10.7 (10.1-12.7) SECONDS INR 0.9 (0.9-1.3) APTT 29 (26.4-36.2) SECONDS Sodium 137 (137-145) mmol/L Potassium 3.4 (3.4-5.1) mmol/L Chloride 102 (98-107) mmol/L Carbon Dioxide 25 (22-32) mmol/L BUN 25 H (7-17) mg/dL Creatinine 0.60 (0.52-1.04) mg/dL Estimated GFR > 60.0 (>60) mL/min BUN/Creatinine Ratio 41.7 H (6-22) Glucose 109 (80-110) mg/dL Calcium 9.2 (8.4-10.2) mg/dL Total Bilirubin 0.2 (0.2-1.3) mg/dL AST 32 (14-36) IU/L ALT 33 (9-52) IU/L Alkaline Phosphatase 115 (38-126) U/L Total Creatine Kinase 91 (30-135) U/L CK-MB (CK-2) TNP CK-MB (CK-2) Rel Index TNP Troponin I < 0.012 (0.01-0.034) ng/mL B-Natriuretic Peptide 328 H (<100) Total Protein 7.6 (6.3-8.2) g/dL Albumin 4.4 (3.5-5.0) g/dL Globulin 3.2 (1.7-4.1) g/dL Albumin/Globulin Ratio 1.4 (1.0-2.8) Lipase 142 (23-300) U/L Urine Dip Bedside Urine Glucose Negative Bedside Urine Bilirubin - Negative Bedside Urine Ketone - Negative Urine Specific [place] 1.020 Bedside Urine Occult Blood + Bedside Urine pH 6.0 Bedside Urine Protein +/- 15 Bedside Urine Urobilinogen - Negative Bedside Urine Nitrite - Negative Bedside Urine Leukocytes ++ [address] angio chest abdomen pelvis: Radiologist's impression: CT angio film processing shift supervisor report: Sequela of granulomatous disease. No evidence of thoracic or abdominal aortic aneurysm. No aortic dissection. Comminuted fractures left. Inferior pubic rami acuity unknown. S shaped scoliotic curvature of the thoracolumbar spine. Low- attenuation hepatic lesions likely representing cysts or hemangiomas ECG Data Attestation: I personally reviewed and interpreted this ECG as follows: Prior ECG tracings: available for review Interpretation: AFib rate 105 MDM Narrative Medical decision making narrative: Patient has received nitroglycerin and aspirin prior to arrival, Protonix, morphine Zofran and Toradol. Her pain is worse with deep breathing better or movement better with deep breathing. This seems to be inflammatory. 2 troponins are negative. Patient's urine does have leukocytes and was sent for micro. Patient has no signs or symptoms of UTI. At this time will not treat UTI. Discharge Plan Departure Prescriptions: No Action thyroid (pork) [Nature-Throid] 65 mg Tablet 65 mg PO DAILY Qty: 0 RF: 0 multivitamin Tablet 1 tab PO DAILY RF: 0 aspirin 81 mg Tablet,Delayed Release (Dr/Ec) 81 mg PO DAILY RF: 0 Calcium 1 tab PO DAILY RF: 0 CoQ-10 1 cap PO DAILY RF: 0 Fish Oil 1 cap PO DAILY RF: 0 Vitamin D3 1 cap PO DAILY RF: 0 magnesium 1 tab PO DAILY RF: 0
[2018-05-20 02:22] LABS: Add Manual Diff / Slide Review NO; Basophils Absolute Auto 0 /uL (0-100); Basophils Percent Auto 0.4 % (0-2); Eosinophils Absolute Auto 200 /uL (0-450); Eosinophils Percent Auto 1.5 % (2-4); Hemoglobin 13.6 g/dL (12.0-16.0); Lymphocytes Absolute Auto 2300 /uL (1100-4500); Lymphocytes Percent Auto 19.3 % (25-40); Mean Corpuscular HGB Conc 32.5 % (30-36); Mean Corpuscular Hemoglobin 27.8 PG (26-34); Mean Corpuscular Volume 85.7 fL (80-100); Monocytes Absolute Auto 700 /uL (0-900); Monocytes Percent Auto 6.2 % (3-14); Neutrophils Absolute Auto 8500 /uL (1500-7000); Neutrophils Percent Auto 72.6 % (50-75); Platelet Count 291 X10^3/uL (150-400); Red Cell Distribution Width 14.5 % (11.6-14.8); White Blood Cell Count 11.8 X10^3/uL (4.5-11.0)
[2018-05-20 02:24] LABS: INR 0.9 (0.9-1.3); Prothrombin Time 10.7 SECONDS (10.1-12.7)
[2018-05-20 02:27] LABS: Alanine Aminotransferase 33 IU/L (9-52); Albumin 4.4 g/dL (3.5-5.0); Albumin Globulin Ratio 1.4 (1.0-2.8); Alkaline Phosphatase 115 U/L (38-126); Aspartate Aminotransferase 32 IU/L (14-36); BUN Creatinine Ratio 41.7 (6-22); Bilirubin Total 0.2 mg/dL (0.2-1.3); Blood Urea Nitrogen 25 mg/dL (7-17); Calcium 9.2 mg/dL (8.4-10.2); Carbon Dioxide 25 mmol/L (22-32); Chloride 102 mmol/L (98-107); Creatine Kinase 91 U/L (30-135); Estimated Glomerular Filt Rate > 60.0 mL/min (>60); Globulin 3.2 g/dL (1.7-4.1); Glucose 109 mg/dL (80-110); HEMOLYSIS 16 (0-50); Lipase 142 U/L (23-300); Potassium 3.4 mmol/L (3.4-5.1); Sodium 137 mmol/L (137-145); Total Protein 7.6 g/dL (6.3-8.2)
[2018-05-20] MEDS: SODIUM CHLORIDE 0.9% 1,000 ML 150 ML IV (02:33)
[2018-05-20] MEDS: PANTOPRAZOLE 40 MG VIAL IV (02:33)
[2018-05-20 02:40] LABS: B Type Natriuretic Peptide 328 (<100)
[2018-05-20 02:44] LABS: Troponin I < 0.012 ng/mL (0.01-0.034)
[2018-05-20 02:52] LABS: PTT Partial Thromboplastin Tim 29 SECONDS (26.4-36.2)
--- NOTE | 2018-05-20 03:13 | DI.CT.S_ITS ---
PROCEDURE: CT ANGIO CHEST ABDOMEN PELVIS INDICATIONS: severe chest pain TECHNIQUE: Precontrast 5 mm thick sections acquired from the lung apices to the iliac crests. After the administration of intravenous contrast, 2.5 mm thick sections again acquired from the lung apices to the iliac crests. Maximum intensity projection (MIP) oblique sagittal and coronal reformats were then acquired. For radiation dose reduction, the following was used: automated exposure control. COMPARISON: None. FINDINGS: Image quality: Excellent. AORTA: Intramural hematoma: Absent Maximum hematoma thickness: Not applicable; greater than 1.1 cm has poorer prognosis. Focal contrast enhancement: Intramural blood pool (< 2 mm neck or imperceptible communication with aortic lumen): Absent. Ulcer-like projection (broad communication with aortic lumen > 3 mm): Absent. Dissection: Absent Cain classification: Not applicable Maximum aortic diameter: 3.3 cm, normal, and the ascending aorta. Periaortic hematoma: Absent. CHEST: Lungs and pleura: No acute airspace opacities. 2 calcified right upper lobe granulomas noted, the largest measures 8 mm at the apex No pleural effusions or pneumothorax. Central and peripheral airways are patent and normal in caliber. Mediastinum: Heart size is normal. No pericardial effusion. No mediastinal or hilar adenopathy by size criteria. Central pulmonary arteries are normal in size. Esophagus is normal in caliber. No hiatal hernias. Bones and chest wall: No axillary adenopathy by size criteria. Thyroid gland contains an 10 mm right thyroid nodule, faintly visualized. No suspicious bony lesions. No vertebral body compression fractures. ABDOMEN: Vasculature: Celiac trunk and mesenteric arteries are patent. Renal arteries are also patent. Solid organs: Liver is normal in size and enhancement. There are several small water density liver cysts. Gallbladder appears normal. Biliary system is non dilated. Pancreas enhances normally. Spleen is normal in size and enhancement. No adrenal nodules. Both kidneys are normal in size and enhancement, without hydronephrosis. Peritoneum and bowel: No free fluid or air. Bowel loops are normal in caliber and wall thickness. Moderate colonic obstipation. Nodes and vessels: No retroperitoneal or mesenteric adenopathy by size criteria. Inferior vena cava is normal in morphology. Miscellaneous: No ventral hernias. PELVIS: Genitourinary: Bladder wall thickness is normal. Miscellaneous: No inguinal hernias or adenopathy. No ventral hernias. Pessary in place. Moderate colonic obstipation. Bones: No suspicious bony lesions. No vertebral body compression fractures. IMPRESSION: 1. Source of acute onset pain is not identified. Several scattered hepatic cysts measuring water in density. Moderate generalized colonic obstipation. In some is made of an 10 mm nodule at the posterior border of the right thyroid lobe, faintly visualized. 2. No aortic aneurysm, dissection, or periaortic hemorrhage is found. Note: These findings are concordant with the preliminary interpretation. Dictated by: Corbin Lion M.D. on 05/20/2018 at 8:02 Approved by: Corbin Lion M.D. on 05/20/2018 at 8:14
[2018-05-20] MEDS: ONDANSETRON 4 MG/2 ML INJ IV (03:17)
[2018-05-20] MEDS: MORPHINE 2 MG/ML INJ IV (03:17)
[2018-05-20 03:39] VITALS: BP 111/66; PULSE 102; RESP 16; O2SAT 97
[2018-05-20 04:00] VITALS: BP 108/76; PULSE 105; RESP 20; O2SAT 96
[2018-05-20 05:30] VITALS: BP 119/67; PULSE 103; RESP 20; O2SAT 96
[2018-05-20 07:21] LABS: Troponin I < 0.012 ng/mL (0.01-0.034)
[2018-05-20 07:35] LABS: Bacteria Urine Few (2-10); RBC Urine 1-5/HPF (0-5/HPF); WBC Urine 30-100/HPF (0-5/HPF)
[2018-05-20 07:36] LABS: Culture Indicated Urine Specimen Cultured
== END 2018-05-20 05:45 | disposition home or self-care (01) ==
PROVIDERS: Emergency Provider Emergency Medicine; Family Provider Internal Medicine; PCP Internal Medicine
DX: R07.9 Chest pain, unspecified (principal); I48.91 Unspecified atrial fibrillation
CPT/HCPCS: 36415; 71045; 71275; 74174; 80053; 81003; 81015; 82550; 83690; 83880; 84484; 85025; 85610; 85730; 87086; 93005; 96361; 96374; 96375; 99283; 99285; C9113; J2270; J2405; Q9967

== ENCOUNTER → 2018-07-01 11:11 | Outpatient (CLI) | payer OTHER, SELFPAY ==
[2018-01-05 22:28] VITALS: BMI 24.7
[2018-07-01 12:34] LABS: Free T3, Triiodothyronine Free 2.93 pg/mL (2.77-5.27); Free T4, Direct Thyroxine 0.76 ng/dL (0.78-2.19)
[2018-07-01 12:48] LABS: Thyroid Stimulating Hormone 2.05 uIU/mL (0.47-4.68)
== END ==
PROVIDERS: PCP Internal Medicine; Visit Provider Physician Assistant
DX: M81.0 Age-related osteoporosis without current pathological fracture (principal)
CPT/HCPCS: 36415; 84439; 84443; 84481

== ENCOUNTER → 2018-09-10 13:34 | Outpatient (CLI) | payer OTHER, SELFPAY ==
[2018-01-05 22:28] VITALS: BMI 24.7
[2018-09-10 15:46] LABS: Free T4, Direct Thyroxine 0.97 ng/dL (0.78-2.19)
[2018-09-10 15:59] LABS: Thyroid Stimulating Hormone 2.12 uIU/mL (0.47-4.68)
== END ==
PROVIDERS: PCP Physician Assistant; Visit Provider Physician Assistant
DX: E03.9 Hypothyroidism, unspecified (principal)
CPT/HCPCS: 36415; 84439; 84443; 84481

== ENCOUNTER → 2018-11-05 16:29 | Outpatient (CLI) | payer OTHER, SELFPAY ==
[2018-01-05 22:28] VITALS: BMI 24.7
[2018-11-05 17:17] LABS: Add Manual Diff / Slide Review NO; Basophils Absolute Auto 100 /uL (0-100); Basophils Percent Auto 0.7 % (0-2); Eosinophils Absolute Auto 0 /uL (0-450); Eosinophils Percent Auto 0.5 % (2-4); Hematocrit 43.5 % (36-46); Hemoglobin 14.5 g/dL (12.0-16.0); Lymphocytes Absolute Auto 1500 /uL (1100-4500); Lymphocytes Percent Auto 20.5 % (25-40); Mean Corpuscular HGB Conc 33.2 % (30-36); Mean Corpuscular Hemoglobin 28.9 PG (26-34); Mean Corpuscular Volume 87.1 fL (80-100); Monocytes Absolute Auto 400 /uL (0-900); Monocytes Percent Auto 5.7 % (3-14); Neutrophils Absolute Auto 5300 /uL (1500-7000); Neutrophils Percent Auto 72.6 % (50-75); Platelet Count 295 X10^3/uL (150-400); White Blood Cell Count 7.3 X10^3/uL (4.5-11.0)
[2018-11-05 18:04] LABS: HEMOLYSIS < 15 (0-50); Iron 114 ug/dL (37-170)
[2018-11-05 18:05] LABS: Alanine Aminotransferase 27 IU/L (9-52); Albumin 4.5 g/dL (3.5-5.0); Albumin Globulin Ratio 1.6 (1.0-2.8); Alkaline Phosphatase 114 U/L (38-126); Aspartate Aminotransferase 29 IU/L (14-36); Bilirubin Total 0.5 mg/dL (0.2-1.3); Blood Urea Nitrogen 24 mg/dL (7-17); Calcium 9.9 mg/dL (8.4-10.2); Carbon Dioxide 27 mmol/L (22-32); Chloride 100 mmol/L (98-107); Estimated Glomerular Filt Rate > 60.0 mL/min (>60); Globulin 2.9 g/dL (1.7-4.1); Glucose 79 mg/dL (80-110); HEMOLYSIS < 15 (0-50); Potassium 4.7 mmol/L (3.4-5.1); Sodium 138 mmol/L (137-145); Total Protein 7.4 g/dL (6.3-8.2)
[2018-11-05 18:15] LABS: Percent Iron Saturation 28 % (15-50); Total Iron Binding Capacity 410 ug/dL (265-497); Transferrin 347 mg/dL (206-381)
[2018-11-05 18:22] LABS: Free T3, Triiodothyronine Free 2.95 pg/mL (2.77-5.27); Free T4, Direct Thyroxine 0.92 ng/dL (0.78-2.19)
[2018-11-05 18:36] LABS: Thyroid Stimulating Hormone 1.88 uIU/mL (0.47-4.68)
[2018-11-05 18:40] LABS: Ferritin 19.8 ng/mL (11.1-264)
== END ==
PROVIDERS: PCP Physician Assistant; Visit Provider Physician Assistant
DX: D50.9 Iron deficiency anemia, unspecified (principal); I48.91 Unspecified atrial fibrillation; E03.9 Hypothyroidism, unspecified
CPT/HCPCS: 36415; 80053; 82728; 83540; 83550; 84439; 84443; 84481; 85025

== ENCOUNTER 2018-11-05 20:34 | Emergency (ER) | payer OTHER, SELFPAY ==
[2018-01-05 22:28] VITALS: BMI 24.7
[2018-11-05 20:45] VITALS: BP 188/95; PULSE 104; RESP 20; TEMP 36.8; O2SAT 99
--- NOTE | 2018-11-05 20:47 | ED.SEIZURE ---
HPI - Seizure General Chief Complaint: Neuro Symptoms/Deficit Stated Complaint: SEIZURES Time Seen by Provider: 11/05/18 20:35 Source: patient Mode of arrival: ambulatory Limitations: no limitations History of Present Illness HPI Narrative: 78-year-old female former smoker presents with her in the chief complaint of a few very brief episodes of confusion over the past few days. She denies any provocation or palliation these episodes. She denies any prodromal symptoms. She denies any focal neurologic findings such as blurred vision, trouble with speech nor numbness, tingling or weakness of extremities. She denies any chest pain or palpitations. She has had no nausea, vomiting or diarrhea. She denies any dysuria, frequency or urgency. She denies any recent medication or diet change. She had significant lab work performed earlier today and became anxious when considering going back home on the [employer] very without obtaining her results so she came to see us to discuss the results. She is at her baseline per her own admission and that of her . She has known atrial fibrillation and has an appointment coming up with cardiology at which point she intends to discuss the use of anticoagulants. She currently does not take them and does not want to despite a discussion of risks and benefits including stroke, permanent disability and even . Her seizure history is thought to be related to a head injury in 1988, her seizures are not generalized tonic-clonic but are partial and she describes them as an absence seizure MD complaint: possible seizure Onset (ago): day(s) Witnessed: no Trauma: No Seizure History: known seizure disorder Place: home Possible Precipitating Event: none Associated symptoms: denies other symptoms Treatments prior to arrival: none Related Data Home Medications Medication Instructions Recorded Confirmed CoQ-10 1 cap PO DAILY 01/05/18 10/07/18 Vitamin D3 1 cap PO DAILY 01/05/18 10/07/18 aspirin 81 mg PO DAILY 01/05/18 10/07/18 multivitamin 1 tab PO DAILY 01/05/18 10/07/18 thyroid (pork) 65 mg tablet 32.5 mg PO DAILY #0 tab 07/01/18 10/07/18 Turmeric 500 mg 1 cap PO BID 10/07/18 10/07/18 calcium citrate 250 mg tablet 250 mg PO DAILY tab 10/07/18 10/07/18 magnesium malate See Rx Instructions .ROUTE .COMPLEX 10/07/18 10/07/18 vitamin B complex tablet 1 tab PO DAILY 10/07/18 10/07/18 Ferrochel Iron Bisglycinate - Now 18 mg PO DAILY 11/02/18 Brand Allergies Allergy/AdvReac Type Severity Reaction Status Date / Time prochlorperazine AdvReac Mild Petechiae Verified 10/07/18 12:44 [PROCHLORPERAZINE] Review of Systems Constitutional Denies chills, Denies fever(s), Denies lethargy and Denies weakness Eyes Denies change in vision, Denies eye discharge, Denies irritation and Denies loss of vision ENT Ears, Nose, Mouth, and Throat: Denies change in voice, Denies neck pain and Denies sore throat Cardiovascular Denies chest pain, Denies irregular heart rhythm, Denies lightheadedness, Denies palpitations, Denies dyspnea, Denies dyspnea on exertion and Denies orthopnea Respiratory Denies cough, Denies dyspnea, Denies dyspnea on exertion and Denies wheezing Gastrointestinal Gastrointestinal: Denies abdominal pain, Denies change in bowel habits, Denies diarrhea, Denies nausea and Denies vomiting Genitourinary Denies hematuria, Denies flank pain, Denies urinary incontinence and Denies urinary urgency Musculoskeletal Denies neck pain Integumentary/Breasts Denies pruritus, Denies erythema, Denies rash and Denies wounds Neurologic Denies confusion, Denies loss of vision and Denies weakness Psychiatric Denies anxiety, Denies confusion, Denies depression, Denies homicidal ideation and Denies suicidal ideation Endocrine Denies palpitations Hematologic/Lymphatic Denies easy bruising Allergic/Immunologic Denies wheezing [facility] Medical History Healthy adult (Acute) Atrial fibrillation (Chronic ~2008) Cataracts, bilateral (Chronic) Disorder of lumbar spine (Chronic) Herniated disc (Chronic) Hypothyroidism (Chronic ~1979) Lumbar compression fracture (Chronic) Melanoma (Chronic ~2016) Partial seizure (Chronic ~1986) Presence of pessary (Chronic ~2006) Scoliosis (Chronic) Skin cancer (Chronic ~2017) Sleep apnea (Chronic) Chicken pox (Resolved) Measles (Resolved) Mumps (Resolved) Surgical History No pertinent past surgical history (Acute) Anesthesia (Resolved) Fracture of left radius (Resolved ~07/2017) History of tonsillectomy and adenoidectomy (Resolved ~194) History of tubal ligation (Resolved ~1970) Family History (Updated 08/12/18 @ 22:13 by Claudia Butterfield) Brother Dissecting aneurysm of thoracic aorta Sister Cancer Social History household members: spouse Smoking Status: Former smoker second hand exposure: No alcohol intake: never substance use type: does not use Family History Brother Dissecting aneurysm of thoracic aorta Sister Cancer Social History household members: spouse Smoking Status: Former smoker second hand exposure: No alcohol intake: never substance use type: does not use Exam Narrative Exam Narrative: GENERAL: 78-year-old female appears stated age, she is anxious but in no other significant or obvious distress HEAD: Atraumatic. Normocephalic. No temporal or scalp tenderness. EYES: Pupils equal round and reactive. Extraocular motions intact. No scleral icterus. No injection or drainage. ENT: Nose without bleeding, purulent drainage or septal hematoma. Throat without erythema, tonsillar hypertrophy or exudate. Uvula midline. Airway patent. NECK: Trachea midline. No JVD or lymphadenopathy. Supple, nontender, no meningeal signs. CARDIOVASCULAR: Irregular rate and rhythm without murmurs, gallops, or rubs. RESPIRATORY: Clear to auscultation. Breath sounds equal bilaterally. No wheezes, rales, or rhonchi. GASTROINTESTINAL: Abdomen soft, non-tender, nondistended. No hepato-splenomegaly, or palpable masses. No guarding. EXTREMITIES: No clubbing, cyanosis, or edema. No joint tenderness, effusion, or edema noted. BACK: Nontender without deformity or crepitance. No flank tenderness. NEURO: AOx3. SKIN: No rash or erythema. Initial Vital Signs Initial Vital Signs: Vital Signs Temperature 98.2 F 11/05/18 20:45 Pulse Rate 104 H 11/05/18 20:45 Respiratory Rate 20 11/05/18 20:45 Blood Pressure 188/95 H 11/05/18 20:45 Pulse Oximetry 99 11/05/18 20:45 Scores CHADS-VASc Congestive heart failure: no Hypertension: no Age 75 years or older: yes Diabetes mellitus: no Stroke, TIA, or TE: no Vascular disease: no Age 65 to 74 years: no Sex category (female): Female CHADS-VASc Score: 3 Course Course Narrative: discussion with patient regarding her labs, nothing terribly exciting, but sugar is a touch low. She is visible relieved by this discussion. We obtained an EKG which finds her in AFib at 90. I had a discussion about her being on anticoagulation and she has been very resistant given her seizure history because she is afraid she will fall and hit her head. She plans to discuss this with cardiology next week. Additionally she has an appointment with neurology next week. Orders Ordered: ED Orders 11/05/18 20:52 Prolactin Stat EKG-12 Lead Stat Vital Signs - 8 hr 11/05/18 20:45 Temperature 98.2 F Pulse Rate 104 H Respiratory Rate 20 Blood Pressure 188/95 H Pulse Oximetry 99 MDM - Seizure Lab Data Point of Care Testing Glucose POC 79 Discharge Plan Departure Patient Disposition: Home Clinical Impression: Anxiety, Hypoglycemia, Feared complaint without diagnosis Instructions: DI for Seizure Disorder -- Adult Activity Restrictions/Additional Instructions: *You have been diagnosed with [ low blood sugar, possible seizure activity, but largely a well check ] *What to do: *Continue to take medications as directed *Follow up with your primary care provider in 2-3 days, call for an appointment. Let them know you were seen in the Emergency Department and that we ask that you be seen in follow up *Return to ER if you should have any new, worsening or concerning symptoms Prescriptions: No Action Nature-Throid 65 mg tablet 32.5 mg PO DAILY Qty: 0 RF: 0 Ferrochel Iron Bisglycinate - Now Brand 18 mg PO DAILY RF: 0 vitamin B complex tablet 1 tab PO DAILY RF: 0 calcium citrate 250 mg calcium tablet 250 mg PO DAILY RF: 0 Turmeric 500 mg 1 cap PO BID RF: 0 magnesium malate See Patient Comments .ROUTE .COMPLEX RF: 0 multivitamin Tablet 1 tab PO DAILY RF: 0 aspirin 81 mg Tablet,Delayed Release (Dr/Ec) 81 mg PO DAILY RF: 0 CoQ-10 1 cap PO DAILY RF: 0 Vitamin D3 1 cap PO DAILY RF: 0 Referrals: Hayley Mckeon PA-C [Primary Care Provider] -
--- NOTE | 2018-11-05 21:12 | PC.NURSE ---
pt reports episode of just go out of it (last at approx 1500) that is not abnormal for her but is concerned about increasing frequency, she spoke with her neurologist who sent her to for outpatient lab work today. She denies further sx since the event this evening, however was concerned about not knowing the results of her lab work today and being unable to come back in the case of an emergency [place] [facility]. Her neuro exam is unremarkable.
[2018-11-05 21:23] LABS: Prolactin 5.3 ng/mL (3.0-18.6)
[2018-11-05 21:24] VITALS: BP 145/90; PULSE 82; O2SAT 97
== END 2018-11-05 21:25 | disposition home or self-care (01) ==
PROVIDERS: Emergency Provider Emergency Medicine; PCP Physician Assistant
DX: F41.9 Anxiety disorder, unspecified (principal); E16.2 Hypoglycemia, unspecified; I48.91 Unspecified atrial fibrillation
CPT/HCPCS: 81003; 82962; 84146; 93005; 99282; 99283

== ENCOUNTER 2019-01-20 07:25 | Emergency (ER) | payer OTHER, SELFPAY ==
[2018-01-05 22:28] VITALS: BMI 24.7
[2019-01-20 07:30] VITALS: BP 134/111; PULSE 91; RESP 17; TEMP 36.7; O2SAT 94
[2019-01-20 07:50] LABS: Add Manual Diff / Slide Review NO; Basophils Absolute Auto 0 /uL (0-100); Basophils Percent Auto 0.3 % (0-2); Eosinophils Absolute Auto 0 /uL (0-450); Eosinophils Percent Auto 0.4 % (2-4); Hematocrit 44.1 % (36-46); Hemoglobin 14.8 g/dL (12.0-16.0); Lymphocytes Absolute Auto 1400 /uL (1100-4500); Lymphocytes Percent Auto 13.4 % (25-40); Mean Corpuscular HGB Conc 33.5 % (30-36); Mean Corpuscular Hemoglobin 29.6 PG (26-34); Mean Corpuscular Volume 88.2 fL (80-100); Monocytes Absolute Auto 400 /uL (0-900); Neutrophils Absolute Auto 8400 /uL (1500-7000); Neutrophils Percent Auto 81.9 % (50-75); Platelet Count 316 X10^3/uL (150-400); Red Cell Distribution Width 14.5 % (11.6-14.8); White Blood Cell Count 10.3 X10^3/uL (4.5-11.0)
[2019-01-20] MEDS: SODIUM CHLORIDE 0.9% 1,000 ML 150 ML IV (08:00)
[2019-01-20 08:01] LABS: Alanine Aminotransferase 26 IU/L (9-52); Albumin 4.4 g/dL (3.5-5.0); Albumin Globulin Ratio 1.4 (1.0-2.8); Alkaline Phosphatase 98 U/L (38-126); Aspartate Aminotransferase 31 IU/L (14-36); Bilirubin Total 0.4 mg/dL (0.2-1.3); Blood Urea Nitrogen 21 mg/dL (7-17); Calcium 9.5 mg/dL (8.4-10.2); Carbon Dioxide 28 mmol/L (22-32); Chloride 101 mmol/L (98-107); Estimated Glomerular Filt Rate > 60.0 mL/min (>60); Globulin 3.2 g/dL (1.7-4.1); Glucose 112 mg/dL (80-110); HEMOLYSIS < 15 (0-50); Lipase 75 U/L (23-300); Potassium 4.2 mmol/L (3.4-5.1); Sodium 137 mmol/L (137-145); Total Protein 7.6 g/dL (6.3-8.2)
--- NOTE | 2019-01-20 08:13 | ED.ABDPAIN ---
HPI - Abdominal Pain General Chief Complaint: Abdominal Pain Stated Complaint: severe abdominal pain Time Seen by Provider: 01/20/19 07:25 Source: patient Mode of arrival: Ambulatory Limitations: no limitations History of Present Illness HPI narrative: 78-year-old female former smoker presents with her with a chief complaint of 7 episodes of loose stool this morning with generalized crampy abdominal pain. She denies any provocation or palliation of the symptoms. She is nauseated but denies vomiting. She has had chills but no fever. She denies recent international travel, exposure to ill persons, bad food or antibiotic use. She has become a bit dizzy and weak. She denies any dietary change or new medications. MD complaint: abdominal pain Onset (ago): hour(s) Pain Consistency: intermittent Location: diffuse Severity: moderate Quality: cramping Radiation: none Relieving factors: nothing Exacerbating factors: nothing Associated symptoms: nausea Related Data Home Medications Medication Instructions Recorded Confirmed CoQ-10 1 cap PO DAILY 01/05/18 01/20/19 Vitamin D3 1 cap PO DAILY 01/05/18 01/20/19 aspirin 81 mg PO DAILY 01/05/18 01/20/19 multivitamin 1 tab PO DAILY 01/05/18 01/20/19 Turmeric 500 mg 1 cap PO BID 10/07/18 01/20/19 calcium citrate 250 mg PO DAILY tab 10/07/18 01/20/19 magnesium malate See Rx Instructions .ROUTE .COMPLEX 10/07/18 01/20/19 vitamin B complex 1 tab PO DAILY 10/07/18 01/20/19 Ferrochel Iron Bisglycinate - Now 18 mg PO DAILY 11/02/18 01/20/19 Brand apixaban 2.5 mg tablet 2.5 mg PO BID 11/11/18 01/20/19 lamotrigine 25 mg PO BID 01/20/19 01/20/19 metoprolol succinate 25 mg PO DAILY 01/20/19 01/20/19 thyroid (pork) [Nature-Throid] 32.5 mg PO QPM 01/20/19 01/20/19 Allergies Allergy/AdvReac Type Severity Reaction Status Date / Time prochlorperazine AdvReac Mild Petechiae Verified 11/11/18 10:10 [PROCHLORPERAZINE] Review of Systems Constitutional Constitutional: Reports chills, Denies fatigue, Denies fever(s), Denies frequent falls, Denies lethargy and Reports weakness Eyes Eyes: Denies change in vision, Denies eye discharge, Denies irritation and Denies loss of vision ENT Ears, Nose, Mouth, and Throat: Denies change in voice, Denies dizziness, Denies neck pain, Denies sore throat and Denies throat swelling Cardiovascular Cardiovascular: Denies chest pain, Denies irregular heart rhythm, Denies lightheadedness, Denies palpitations, Denies dyspnea, Denies dyspnea on exertion and Denies orthopnea Respiratory Respiratory: Denies cough, Denies dyspnea, Denies dyspnea on exertion and Denies wheezing Gastrointestinal Gastrointestinal: Denies abdominal pain, Denies change in bowel habits, Denies diarrhea, Denies nausea and Denies vomiting Genitourinary Genitourinary: Denies hematuria, Denies flank pain, Denies urinary incontinence and Denies urinary urgency Musculoskeletal Musculoskeletal: Denies back pain, Denies muscle weakness, Denies neck pain, Denies numbness and Denies tingling Integumentary/Breasts Skin/Breast: Denies pruritus, Denies erythema, Denies rash and Denies wounds Neurologic Neurologic: Denies behavioral changes, Denies confusion, Denies dizziness, Denies frequent falls, Denies loss of vision, Denies numbness, Denies tingling and Reports weakness Psychiatric Psychiatric: Denies anxiety, Denies behavioral changes, Denies confusion, Denies depression, Denies homicidal ideation and Denies suicidal ideation Endocrine Endocrine: Denies fatigue, Denies flushing and Denies palpitations Hematologic/Lymphatic Hematologic/Lymphatic: Denies easy bruising Allergic/Immunologic Allergic/Immunologic: Denies urticaria, Denies throat swelling and Denies wheezing [facility] Medical History Atrial fibrillation (Chronic ~2008) Cataracts, bilateral (Chronic) Chicken pox (Resolved) Disorder of lumbar spine (Chronic) Healthy adult (Acute) Herniated disc (Chronic) Hypothyroidism (Chronic ~1979) Lumbar compression fracture (Chronic) Measles (Resolved) Melanoma (Chronic ~2017) Mumps (Resolved) Partial seizure (Chronic ~1986) Presence of pessary (Chronic ~2006) Scoliosis (Chronic) Skin cancer (Chronic ~2018) Sleep apnea (Chronic) Surgical History Anesthesia (Resolved) Fracture of left radius (Resolved ~07/2017) History of tonsillectomy and adenoidectomy (Resolved ~1943) History of tubal ligation (Resolved ~1970) No pertinent past surgical history (Acute) Family History Brother Dissecting aneurysm of thoracic aorta Sister Cancer Social History household members: spouse Smoking Status: Former smoker second hand exposure: No alcohol intake: never substance use type: does not use Family History Brother Dissecting aneurysm of thoracic aorta Sister Cancer Social History household members: spouse Smoking Status: Former smoker second hand exposure: No alcohol intake: never substance use type: does not use Exam Narrative Exam Narrative: GENERAL: [78] year old patient appears stated age. Well-nourished, well-developed patient, in mild distress. HEAD: Atraumatic. Normocephalic. EYES: Pupils equal round and reactive. Extraocular motions intact. No scleral icterus. No injection or drainage. ENT: Dry mucous membranes Nose without bleeding, purulent drainage. Throat without erythema, tonsillar hypertrophy or exudate. Airway patent. NECK: Trachea midline. Non tender CARDIOVASCULAR: Regular rate and rhythm without murmurs, gallops, or rubs. RESPIRATORY: Clear to auscultation. Breath sounds equal bilaterally. No wheezes, rales, or rhonchi. GASTROINTESTINAL: Increased sounds in all 4 quadrants Abdomen soft, generalized tenderness, nondistended. EXTREMITIES: No edema or joint tenderness. BACK: Nontender without deformity or crepitance. No flank tenderness. NEURO: AOx3. SKIN: Poor skin turgor No rash or erythema of visible areas Initial Vital Signs Initial Vital Signs: Vital Signs Temperature 98.1 F 01/20/19 07:30 Pulse Rate 91 H 01/20/19 07:30 Respiratory Rate 17 01/20/19 07:30 Blood Pressure 134/111 H 01/20/19 07:30 Pulse Oximetry 94 01/20/19 07:30 Course Orders Ordered: Discontinued Medications Sodium Chloride (Normal Saline 0.9%) 1,000 mls @ 150 mls/hr IV CONT FAIZA Last Infusion: 01/20/19 10:05 Dose: 0 mls/hr Documented by: Admin: 01/20/19 08:00 Dose: 150 mls/hr Documented by: DAVID Ketorolac Tromethamine (Toradol) 15 mg IV NOW ONE Stop: 01/20/19 08:14 Last Admin: 01/20/19 08:15 Dose: 15 mg Documented by: DAVID Vital Signs Vital signs: Vital Signs - 8 hr 01/20/19 10:58 01/20/19 11:00 01/20/19 11:52 Pulse Rate 84 60 Respiratory Rate 21 19 Blood Pressure Blood Pressure [Right Arm] 115/78 132/71 127/74 Pulse Oximetry 99 100 01/20/19 12:01 Pulse Rate 70 Respiratory Rate 16 Blood Pressure 127/74 Blood Pressure [Right Arm] Pulse Oximetry 100 MDM - Abdominal Pain Lab Data Result diagrams: 01/20/19 07:35 01/20/19 07:35 Labs: Lab Results 01/20/19 01/20/19 01/20/19 Range/Units 07:35 07:35 07:35 WBC 10.3 (4.5-11.0) X10^3/uL RBC 5.00 (4.0-5.2) X10^6/uL Hgb 14.8 (12.0-16.0) g/dL Hct 44.1 (36-46) % MCV 88.2 (80-100) fL MCH 29.6 (26-34) PG MCHC 33.5 (30-36) % RDW 14.5 (11.6-14.8) % Plt Count 316 (150-400) X10^3/uL Neut % (Auto) 81.9 H (50-75) % Lymph % (Auto) 13.4 L (25-40) % [place] % (Auto) 4.0 (3-14) % Eos % (Auto) 0.4 L (2-4) % Baso % (Auto) 0.3 (0-2) % Neut # (Auto) 8400 H (6428-1366) /uL Lymph # (Auto) 1400 (3324-3660) /uL [place] # (Auto) 400 (0-900) /uL Eos # (Auto) 0 (0-450) /uL Baso # (Auto) 0 (0-100) /uL Sodium 137 (137-145) mmol/L Potassium 4.2 (3.4-5.1) mmol/L Chloride 101 (98-107) mmol/L Carbon Dioxide 28 (22-32) mmol/L BUN 21 H (7-17) mg/dL Creatinine 0.60 (0.52-1.04) mg/dL Estimated GFR > 60.0 (>60) mL/min BUN/Creatinine Ratio 35.0 H (6-22) Glucose 112 H (80-110) mg/dL Lactate 1.0 (0.7-2.1) mmol/L Calcium 9.5 (8.4-10.2) mg/dL Total Bilirubin 0.4 (0.2-1.3) mg/dL AST 31 (14-36) IU/L ALT 26 (9-52) IU/L Alkaline Phosphatase 98 (38-126) U/L Total Protein 7.6 (6.3-8.2) g/dL Albumin 4.4 (3.5-5.0) g/dL Globulin 3.2 (1.7-4.1) g/dL Albumin/Globulin Ratio 1.4 (1.0-2.8) Lipase 75 (23-300) U/L Urine RBC (0-5/HPF) Urine WBC (0-5/HPF) Ur Squamous Epith Cells (0-5/HPF) Urine Bacteria (None) Ur Culture Indicated? Stl C. cayetanensis PCR (Not Detect) Stool Rotavirus (PCR) (Not Detect) Stool Adenovirus (PCR) (Not Detect) Stool Astrovirus (PCR) (Not Detect) Stool Cryptosporidium PCR (Not Detect) Stl E.coli Shiga Tox PCR (Not Detect) St Sh/Enteroin Ecoli PCR (Not Detect) Stool E coli O157 PCR Stl Enterotoxigenic E PCR (Not Detect) Stool EPEC (PCR) (Not Detect) Stl E. histolytica PCR (Not Detect) Stool Giardia Lamblia PCR (Not Detect) Stl P. shigelloides PCR (Not Detect) St Y.enterocolitica PCR (Not Detect) Stool Vibrio (PCR) (Not Detect) Stl Vibrio cholerae PCR (Not Detect) Stl Enteroaggr Ecoli PCR (Not Detect) Stl Norovirus GI/GII PCR (Not Detect) Campylobacter (PCR) (Not Detect) C. difficile Tox (PCR) (Not Detect) Salmonella (PCR) (Not Detect) 01/20/19 01/20/19 Range/Units 08:50 08:50 WBC (4.5-11.0) X10^3/uL RBC (4.0-5.2) X10^6/uL Hgb (12.0-16.0) g/dL Hct (36-46) % MCV (80-100) fL MCH (26-34) PG MCHC (30-36) % RDW (11.6-14.8) % Plt Count (150-400) X10^3/uL Neut % (Auto) (50-75) % Lymph % (Auto) (25-40) % [place] % (Auto) (3-14) % Eos % (Auto) (2-4) % Baso % (Auto) (0-2) % Neut # (Auto) (1558-5594) /uL Lymph # (Auto) (6881-9405) /uL [place] # (Auto) (0-900) /uL Eos # (Auto) (0-450) /uL Baso # (Auto) (0-100) /uL Sodium (137-145) mmol/L Potassium (3.4-5.1) mmol/L Chloride (98-107) mmol/L Carbon Dioxide (22-32) mmol/L BUN (7-17) mg/dL Creatinine (0.52-1.04) mg/dL Estimated GFR (>60) mL/min BUN/Creatinine Ratio (6-22) Glucose (80-110) mg/dL Lactate (0.7-2.1) mmol/L Calcium (8.4-10.2) mg/dL Total Bilirubin (0.2-1.3) mg/dL AST (14-36) IU/L ALT (9-52) IU/L Alkaline Phosphatase (38-126) U/L Total Protein (6.3-8.2) g/dL Albumin (3.5-5.0) g/dL Globulin (1.7-4.1) g/dL Albumin/Globulin Ratio (1.0-2.8) Lipase (23-300) U/L Urine RBC 1-5/hpf (0-5/HPF) Urine WBC 5-10/hpf H (0-5/HPF) Ur Squamous Epith Cells 0-1 /hpf (0-5/HPF) Urine Bacteria None seen (None) Ur Culture Indicated? Specimen cultured Stl C. cayetanensis PCR Not detected (Not Detect) Stool Rotavirus (PCR) Not detected (Not Detect) Stool Adenovirus (PCR) Not detected (Not Detect) Stool Astrovirus (PCR) Not detected (Not Detect) Stool Cryptosporidium PCR Not detected (Not Detect) Stl E.coli Shiga Tox PCR Not detected (Not Detect) St Sh/Enteroin Ecoli PCR Not detected (Not Detect) Stool E coli O157 PCR Not Reportable Stl Enterotoxigenic E PCR Not detected (Not Detect) Stool EPEC (PCR) Not detected (Not Detect) Stl E. histolytica PCR Not detected (Not Detect) Stool Giardia Lamblia PCR Not detected (Not Detect) Stl P. shigelloides PCR Not detected (Not Detect) St Y.enterocolitica PCR Not detected (Not Detect) Stool Vibrio (PCR) Not detected (Not Detect) Stl Vibrio cholerae PCR Not detected (Not Detect) Stl Enteroaggr Ecoli PCR Not detected (Not Detect) Stl Norovirus GI/GII PCR Not detected (Not Detect) Campylobacter (PCR) Not detected (Not Detect) C. difficile Tox (PCR) Not detected (Not Detect) Salmonella (PCR) Not detected (Not Detect) Discharge Plan Departure Patient Disposition: Home Clinical Impression: Abdominal pain Qualifiers: Abdominal location: generalized Qualified Code(s): R10.84 - Generalized abdominal pain Discharge Date/Time: 01/20/19 12:02 Instructions: DI for Abdominal Pain-Adult Activity Restrictions/Additional Instructions: 1. Drink plenty of fluids with frequent small sips. 2. For the next 24 hours a clear liquid diet is advised. After that please employ a brat diet which would include bananas, rice, apples, toast. 3. Please take medications as directed. 4. Please follow-up with your doctor in the next 1-2 days. Call the office for an appointment. 5. Please return to the emergency Department for any worsening or persistent symptoms, such as increasing pain or fever. Prescriptions: No Action Ferrochel Iron Bisglycinate - Now Brand 18 mg PO DAILY RF: 0 Eliquis 2.5 mg tablet 2.5 mg PO BID RF: 0 vitamin B complex tablet 1 tab PO DAILY RF: 0 calcium citrate 250 mg calcium tablet 250 mg PO DAILY RF: 0 Turmeric 500 mg 1 cap PO BID RF: 0 magnesium malate See Rx Instructions .ROUTE .COMPLEX RF: 0 multivitamin Tablet 1 tab PO DAILY RF: 0 aspirin 81 mg Tablet,Delayed Release (Dr/Ec) 81 mg PO DAILY RF: 0 CoQ-10 1 cap PO DAILY RF: 0 Vitamin D3 1 cap PO DAILY RF: 0 lamotrigine 25 mg tablet 25 mg PO BID RF: 0 metoprolol succinate 25 mg tablet extended release 24 hr 25 mg PO DAILY RF: 0 Nature-Throid 32.5 mg tablet 32.5 mg PO QPM RF: 0 Referrals: Hayley Mckeon PA-C [Primary Care Provider] -
[2019-01-20] MEDS: KETOROLAC 60 MG/2 ML VIAL 15 MG IV (08:15)
[2019-01-20 09:04] LABS: Bacteria Urine None Seen
[2019-01-20 09:06] LABS: Culture Indicated Urine Specimen Cultured; RBC Urine 1-5/HPF (0-5/HPF); Squamous Epithelial Cell Urine 0-1 /HPF (0-5/HPF); WBC Urine 5-10/HPF (0-5/HPF)
[2019-01-20 09:29] VITALS: BP 125/88; PULSE 83; RESP 21; O2SAT 100
[2019-01-20 10:21] LABS: Adenovirus F 40/41 Not Detected (Not Detect); Astrovirus Not Detected (Not Detect); Campylobacter Not Detected (Not Detect); Clostridium difficile toxin AB Not Detected (Not Detect); Cryptosporidium Not Detected (Not Detect); Cyclospora cayetanensis Not Detected (Not Detect); Entamoeba histolytica Not Detected (Not Detect); Enteroaggregative E.coli Not Detected (Not Detect); Enteropathogenic E.coli Not Detected (Not Detect); Enterotoxigenic E.coli It/st Not Detected (Not Detect); Giardia lamblia Not Detected (Not Detect); Norovirus GI/GII Not Detected (Not Detect); Plesiomonsa shigelloides Not Detected (Not Detect); Rotavirus A Not Detected (Not Detect); Salmonella Not Detected (Not Detect); Shiga-like toxin-prod E.coli Not Detected (Not Detect); Shigella/Enteroinvasive E.coli Not Detected (Not Detect); Vibrio Not Detected (Not Detect); Vibrio cholerae Not Detected (Not Detect); Yersinia enterocolitica Not Detected (Not Detect)
[2019-01-20 10:58] VITALS: BP 115/78; PULSE 84; RESP 21; O2SAT 99
[2019-01-20 11:00] VITALS: BP 132/71; PULSE 60; RESP 19; O2SAT 100
[2019-01-20 11:52] VITALS: BP 127/74
[2019-01-20 12:01] VITALS: BP 127/74; PULSE 70; RESP 16; O2SAT 100
== END 2019-01-20 12:02 | disposition home or self-care (01) ==
PROVIDERS: Emergency Provider Emergency Medicine; PCP Physician Assistant
DX: R10.84 Generalized abdominal pain (principal); Z12.31 Encounter for screening mammogram for malignant neoplasm of breast; Z80.3 Family history of malignant neoplasm of breast; I08.3 Combined rheumatic disorders of mitral, aortic and tricuspid valves; I48.91 Unspecified atrial fibrillation; R06.02 Shortness of breath
CPT/HCPCS: 36415; 77063; 77067; 80053; 81015; 83605; 83690; 85025; 87077; 87086; 87507; 93306; 96361; 96374; 99283; 99284; J1885

== ENCOUNTER → 2019-01-20 14:33 | Outpatient (CLI) | payer OTHER, SELFPAY ==
[2018-01-05 22:28] VITALS: BMI 24.7
--- NOTE | 2019-01-20 | DI.ECHO.S_ITS ---
[place] +---------+ [facility] +---------+ : : [id number] : : : : [id number] : : : : Phone: [phone]+ Echocardiogram Report + + :Name: JOESPH HINES Study Date: 01/20/2019 Height: 61 in : :[facility] Exam Location: IS Weight: 130 lb : : Gender: Female BSA: 1.6 m2 : :: 1940 Age: 78 yrs BP: 145/77 mmHg: :Reason For Study: SOB : : Performed By: Lyle Ruby : :Referring: DUDLEY GUIDRY N : + + Interpretation Summary The patient was in atrial fibrillation with heart rates between 73-103 bpm during the exam. The left ventricle is normal in size. The ejection fraction is estimated to be 60-65%. The right ventricle is mildly dilated. The right ventricular systolic function is normal. There is moderate to severe mitral regurgitation. There is moderate to severe tricuspid regurgitation. The right ventricular systolic pressure is estimated to be at least 27 mmHg based on an estimated right atrial pressure of 3 mm Hg. Procedure: A two-dimensional transthoracic echocardiogram with color flow and Doppler was performed. The study quality was technically good. There is no prior echocardiogram noted for this patient. The patient had a heart rate of 73-103 beats per minute. The patient was in atrial fibrillation with heart rates between 73-103 bpm during the exam. Left Ventricle: The left ventricle is normal in size. Proximal septal thickening is noted. There is no echo evidence for significant left ventricular outflow tract obstruction. There is no thrombus. The ejection fraction is estimated to be 60-65%. There are no focal wall motion abnormalities. E/E' med: 11.9. Right Ventricle: The right ventricle is mildly dilated. The right ventricular systolic function is normal. Atria: Both atria are severely dilated. The interatrial septum is intact with no evidence for an atrial septal defect. Mitral Valve: There is mild to moderate mitral annular calcification. There is no evidence of mitral valve prolapse. There is moderate to severe mitral regurgitation. Aortic Valve: The aortic valve is trileaflet. The aortic valve opens well. The aortic valve is slightly calcified. There is no aortic valve stenosis. There is mild aortic regurgitation. Tricuspid Valve: The tricuspid annulus is dilated. Tricuspid leaflets are thickened. There is moderate to severe tricuspid regurgitation. The right ventricular systolic pressure is estimated to be at least 27 mmHg based on an estimated right atrial pressure of 3 mm Hg. Pulmonic Valve: The pulmonic valve is normal in structure and function. There is trace pulmonic regurgitation. Great Vessels: The aortic root is normal size. The dimensions of the ascending aorta are normal. The pulmonary artery is normal size. The IVC is of normal diameter and collapses greater than 50% with a sniff. This suggests a low right atrial pressure of 3 mm Hg. Pericardium/ Pleura There is no pericardial effusion. There is no pleural effusion. MMode/2D Measurements & Calculations LVIDd: 3.8 cm LVOT diam: 2.0 cm LVIDs: 2.5 cm Ao root diam: 3.1 cm FS: 35.7 % Aortic Jxn: 2.7 cm EPSS: 0.14 cm asc Aorta Diam: 3.4 cm IVSd: 0.93 cm Ao Arch Diam (Prox Trans): 2.8 cm LVPWd: 0.97 cm LV hsu. diameter/BSA (cm/m^2): 2.4 LV sys. diameter/BSA (cm/m^2): 1.6 LA dimension: 4.2 cm RA long axis: 5.5 cm LA A2 area: 23.6 cm2 RA area: 23.5 cm2 LA A4 area: 25.5 cm2 RA vol: 84.9 ml LA length (vol): 6.3 cm RA : 54.0 ml/m2 LA vol: 80.8 ml IVC diam: 2.1 cm LA vol index: 51.4 ml/m2 RVD1 (basal): 4.0 cm RVD2 (mid): 3.4 cm Doppler Measurements & Calculations Ao V2 max: 120.2 cm/sec LVOT Max Alexander: 89.0 cm/sec Ao V2 mean: 87.2 cm/sec LV V1 max P.2 mmHg Ao max P.8 mmHg LV V1 VTI: 17.7 cm Ao mean P.3 mmHg SIERRA(I,D): 2.4 cm2 Ao V2 VTI: 22.3 cm SIERRA(V,D): 2.2 cm2 sev ratio: 0.79 SIERRA indexed to BSA (cm^2/m^2): 1.5 AI P1/2t: 736.2 msec AI dec slope: 161.8 cm/sec2 MV E max alexander: 94.6 cm/sec TR max alexander: 242.5 cm/sec MV A max alexander: 3.9 cm/sec TR max P.6 mmHg MV E/A: 24.3 PA V2 max: 70.7 cm/sec Med Peak E' Alexander: 7.9 cm/sec PA V2 mean: 52.1 cm/sec E/E' med: 11.9 PA mean P.2 mmHg Lat Peak E' Alexander: 12.0 cm/sec PA pr(Accel): 44.1 mmHg E/E' lat: 7.9 PA Accel Time: 0.08 sec E/e' average: 9.9 MV dec time: 0.16 sec SV(LVOT): 53.8 ml Reading Physician:06:36 PM
--- NOTE | 2019-01-20 | DI.MG.S_ITS ---
BILATERAL DIGITAL SCREENING MAMMOGRAM 3D/2D WITH CAD: 01/20/2019 CLINICAL: Routine screening. Family history of breast cancer. Comparison is made to exams dated: 11/11/2017 mammogram, 11/01/2016 mammogram, and 11/01/2015 mammogram - [facility]. There are scattered fibroglandular elements in both breasts. Current study was also evaluated with a Computer Aided Detection (CAD) system. No significant masses, calcifications, or other findings are seen in either breast. There has been no significant interval change. IMPRESSION: NEGATIVE There is no mammographic evidence of malignancy. A 1 year screening mammogram is recommended. This exam was interpreted at Station ID: [id number]. NOTE: For mammograms, a report in lay terms will be sent to the patient. Approximately 15% of breast malignancies will not be visualized mammographically. In the management of a palpable breast mass, a negative mammogram must not discourage biopsy of a clinically suspicious lesion. Electronically Signed By: Tyler roland/lissy:01/20/2019 16:55:12 copy to: Soledad Goss letter sent: Normal Exam ACR BI-RADS Category 1: Negative [id number]
== END ==
PROVIDERS: Family Provider Internal Medicine Cardiovascular Disease; PCP Physician Assistant; Visit Provider Nurse Practitioner
DX: Z12.31 Encounter for screening mammogram for malignant neoplasm of breast (principal); Z80.3 Family history of malignant neoplasm of breast
CPT/HCPCS: 77063; 77067; 93306

== ENCOUNTER → 2019-06-02 08:45 | Outpatient (CLI) | payer OTHER, SELFPAY ==
[2018-01-05 22:28] VITALS: BMI 24.7
[2019-06-02 09:55] LABS: Add Manual Diff / Slide Review NO; Basophils Absolute Auto 0 /uL (0-100); Basophils Percent Auto 0.7 % (0-2); Eosinophils Absolute Auto 100 /uL (0-450); Eosinophils Percent Auto 2.3 % (2-4); Hematocrit 42.2 % (36-46); Hemoglobin 14.1 g/dL (12.0-16.0); Lymphocytes Absolute Auto 1500 /uL (1100-4500); Lymphocytes Percent Auto 29.5 % (25-40); Mean Corpuscular HGB Conc 33.3 % (30-36); Mean Corpuscular Hemoglobin 29.6 PG (26-34); Mean Corpuscular Volume 88.8 fL (80-100); Monocytes Absolute Auto 500 /uL (0-900); Monocytes Percent Auto 10.1 % (3-14); Neutrophils Absolute Auto 3000 /uL (1500-7000); Neutrophils Percent Auto 57.4 % (50-75); Platelet Count 283 X10^3/uL (150-400); Red Blood Cell Count 4.76 X10^6/uL (4.0-5.2); Red Cell Distribution Width 14.7 % (11.6-14.8); White Blood Cell Count 5.2 X10^3/uL (4.5-11.0)
[2019-06-02 10:15] LABS: Cholesterol 204 mg/dL (140-199); HDL Cholesterol 50 mg/dL (40-60); LDL Cholesterol Calculated 138 mg/dL (<100); Triglycerides 82 mg/dL (35-150)
[2019-06-02 10:41] LABS: Free T4, Direct Thyroxine 1.01 ng/dL (0.78-2.19)
[2019-06-02 10:55] LABS: Thyroid Stimulating Hormone 1.58 uIU/mL (0.47-4.68)
== END ==
PROVIDERS: Family Provider Internal Medicine Cardiovascular Disease
DX: E03.9 Hypothyroidism, unspecified (principal)
CPT/HCPCS: 36415; 80061; 84439; 84443; 85025

== ENCOUNTER → 2019-10-16 14:08 | Outpatient (CLI) | payer OTHER, SELFPAY ==
[2018-01-05 22:28] VITALS: BMI 24.7
[2019-10-17 08:12] LABS: COVID19 Sendout Not Detected (Not Detect)
== END ==
PROVIDERS: Family Provider Internal Medicine Cardiovascular Disease; Visit Provider Nurse Practitioner
DX: Z01.812 Encounter for preprocedural laboratory examination (principal)
CPT/HCPCS: 87635

== ENCOUNTER 2019-10-19 07:07 | Day surgery (SDC) | payer OTHER, SELFPAY ==
[2018-01-05 22:28] VITALS: BMI 24.7
[2019-10-19] MEDS: PROPARACAINE 0.5% OPHTH SOL 2 DROPS EYE-OP (07:41)
[2019-10-19] MEDS: CATARACT EYE COMPOUND (10 DROPS/SYRINGE) 3 DROPS EYE-OP (07:42)
[2019-10-19 07:44] VITALS: BP 154/76; PULSE 54; RESP 16; TEMP 36.6; O2SAT 97; BMI 23.4
--- NOTE | 2019-10-19 08:11 | PM.PREOP ---
Pre-operative Note Interval Note History & Physical reviewed/Exam performed by Physician: Yes Changes to H&P: No
--- NOTE | 2019-10-19 08:11 | PM.OP.1 ---
Operative Date/Time/Diagnoses Pre-op diagnosis: Nuclear Cataract Left eye Post-op diagnosis: same Procedure & Clinicians Same procedure as scheduled: Yes Surgeon: Blu Wallace Anesthesia Type: MAC +/- and Sedation Operative Notes Procedure in detail: Patient brought to the operating suite. Tetracaine drops placed in the left eye. The vertical and horizontal merdians were marked with the marking instrument. Patient was prepped and draped in sterile manner. Wire lid speculum was placed in the eye. Betadine drops were placed on the eye. This was irrigated. Lidocaine jelly was placed on the eye. A paracentesis port was created with a side-port blade. 0.1 mL 1% preservative free lidocaine was injected into the anterior chamber. The anterior chamber was deepened with viscoelastic. 2.6 mm keratome was used to create a temporal clear corneal incision. Cystotome and Utrata forceps were used to create continuous tear capsulorrhexis. Balanced salt solution was used to hydro dissect the nucleus. The phacoemulsification handpiece was inserted and the nucleus was removed using the stop and chop technique. The irrigation aspiration handpiece was inserted and the remaining cortex was removed. Anterior chamber was deepened with viscoelastic. An Anton [id number] intraocular lens with a power of 22.0 was injected into the capsular bag. Irrigation aspiration handpiece was inserted and the remaining viscoelastic was removed. The lens was rotated to the 180 degree meridian. Incision was hydrated with balanced salt solution and found to be leak free with pressure with Weck-Parul sponges. 0.1 mL Vigamox injected anterior chamber. 0.3 mL Kenalog 10 mg was injected subconjunctivally. Lid speculum was removed. The patient left the operating room in excellent condition. Complications: none Post-operative Condition: stable Disposition: same day surgery
[2019-10-19] MEDS: TRIAMCINOLONE 50 MG/5 ML VIAL INJ (08:24)
[2019-10-19] MEDS: CHONDROIDTIN/SOD HYALURONATE 1.05 ML SYRINGE INTRAOCULA (08:24)
[2019-10-19] MEDS: MOXIFLOXACIN INJ 5 MG/ML VIAL EYE-OP (08:24)
[2019-10-19] MEDS: PHENYLEPHRINE/LIDOCAINE VIAL (OR) 0.2 ML EYE-OP (08:24)
[2019-10-19] MEDS: BALANCED SALT IRRIG SOLN NO.2 500 ML, EPINEPHrine 1 MG IRR (08:25)
[2019-10-19] MEDS: LIDOCAINE JELLY 2% 5 ML 1 APPLIC TOP (08:25)
[2019-10-19] MEDS: TETRACAINE 0.5% OPHTH DROPS 4 ML 2 DROPS EYE-OP (08:25)
[2019-10-19 08:39] VITALS: BP 144/69; PULSE 52; RESP 14; TEMP 36.7; O2SAT 99
== END 2019-10-19 08:56 | disposition home or self-care (01) ==
PROVIDERS: Family Provider Internal Medicine Cardiovascular Disease; Referring Provider Ophthalmology; Visit Provider Ophthalmology
PROC: (CPT 66984; principal; 2019-10-19 08:15)
DX: H25.12 Age-related nuclear cataract, left eye (principal); I48.91 Unspecified atrial fibrillation; G47.30 Sleep apnea, unspecified
CPT/HCPCS: 66984; J0171; J2250; J3301; V2787

== ENCOUNTER → 2019-10-30 12:15 | Outpatient (CLI) | payer OTHER, SELFPAY ==
[2019-10-27 13:35] VITALS: BMI 24.7
[2019-10-31 23:37] LABS: COVID19 Sendout Not Detected (Not Detect)
== END ==
PROVIDERS: Family Provider Internal Medicine Cardiovascular Disease; Visit Provider Physician Assistant
DX: Z01.812 Encounter for preprocedural laboratory examination (principal); Z11.59 Encounter for screening for other viral diseases
CPT/HCPCS: 87635

== ENCOUNTER 2019-11-02 07:00 | Day surgery (SDC) | payer OTHER, SELFPAY ==
[2018-01-05 22:28] VITALS: BMI 24.7
[2019-10-27 13:35] VITALS: BMI 24.7
[2019-11-02] MEDS: PROPARACAINE 0.5% OPHTH SOL 2 DROPS EYE-OP (07:20)
[2019-11-02] MEDS: CATARACT EYE COMPOUND (10 DROPS/SYRINGE) 3 DROPS EYE-OP (07:24)
[2019-11-02 07:32] VITALS: BP 148/75; PULSE 50; RESP 16; TEMP 36.6; O2SAT 97; BMI 23.2
--- NOTE | 2019-11-02 08:03 | PM.PREOP ---
Pre-operative Note Interval Note History & Physical reviewed/Exam performed by Physician: Yes Changes to H&P: No
--- NOTE | 2019-11-02 08:03 | PM.OP.1 ---
Operative Date/Time/Diagnoses Pre-op diagnosis: Nuclear cataract right eye Procedure & Clinicians Procedure: Cataract Surgery Same procedure as scheduled: Yes Surgeon: Blu Wallace Anesthesia Type: MAC +/- and Sedation Operative Notes Procedure in detail: Patient brought to the operating suite. Tetracaine drops placed in the right eye. Marking instrument was used to nubia the vertical and horizontal meridians. Patient was prepped and draped in sterile manner. Wire lid speculum was placed in the eye. Betadine drops were placed on the eye. This was irrigated. Lidocaine jelly was placed on the eye. A paracentesis port was created with a side-port blade. 0.1 mL 1% preservative free lidocaine was injected into the anterior chamber. The anterior chamber was deepened with viscoelastic. 2.6 mm keratome was used to create a temporal clear corneal incision. Cystotome and Utrata forceps were used to create continuous tear capsulorrhexis. Balanced salt solution was used to hydro dissect the nucleus. The phacoemulsification handpiece was inserted and the nucleus was removed using the stop and chop technique. The irrigation aspiration handpiece was inserted and the remaining cortex was removed. Anterior chamber was deepened with viscoelastic. An Anton [id number] intraocular lens with a power of 21.0 was injected into the capsular bag. Irrigation aspiration handpiece was inserted and the remaining viscoelastic was removed. The lens was rotated to the 180 degree meridian. Incision was hydrated with balanced salt solution and found to be leak free with pressure with Weck-Parul sponges. 0.1 mL Vigamox injected anterior chamber. 0.3 mL Kenalog 10 mg was injected subconjunctivally. Lid speculum was removed. The patient left the operating room in excellent condition. Complications: none Post-operative Condition: stable Disposition: same day surgery
[2019-11-02] MEDS: LIDOCAINE JELLY 2% 5 ML 1 APPLIC TOP (08:22)
[2019-11-02] MEDS: CHONDROIDTIN/SOD HYALURONATE 1.05 ML SYRINGE INTRAOCULA (08:22)
[2019-11-02] MEDS: PHENYLEPHRINE/LIDOCAINE VIAL (OR) 0.2 ML EYE-OP (08:23)
[2019-11-02] MEDS: TRIAMCINOLONE 50 MG/5 ML VIAL INJ (08:23)
[2019-11-02] MEDS: MOXIFLOXACIN INJ 5 MG/ML VIAL EYE-OP (08:23)
[2019-11-02] MEDS: TETRACAINE 0.5% OPHTH DROPS 4 ML 2 DROPS EYE-OP (08:23)
[2019-11-02] MEDS: BALANCED SALT IRRIG SOLN NO.2 500 ML, EPINEPHrine 1 MG IRR (08:23)
[2019-11-02 08:43] VITALS: BP 143/76; PULSE 55; RESP 16; TEMP 36.4; O2SAT 99
== END 2019-11-02 08:53 | disposition home or self-care (01) ==
PROVIDERS: Family Provider Internal Medicine Cardiovascular Disease; PCP Family Medicine; Referring Provider Ophthalmology; Visit Provider Ophthalmology
PROC: (CPT 66984; principal; 2019-11-02 08:15)
DX: H25.11 Age-related nuclear cataract, right eye (principal); I48.91 Unspecified atrial fibrillation; G47.33 Obstructive sleep apnea (adult) (pediatric)
CPT/HCPCS: 66984; J0171; J2250; J3301; V2787

== ENCOUNTER → 2019-12-01 12:09 | Outpatient (CLI) | payer OTHER, SELFPAY ==
[2019-10-27 13:35] VITALS: BMI 24.7
[2019-12-01 13:07] LABS: Hemoglobin A1C% w Est Avg Glu 5.4 % (4.0-6.0)
[2019-12-01 13:09] LABS: Alanine Aminotransferase 19 IU/L (<35); Albumin 4.3 g/dL (3.5-5.0); Albumin Globulin Ratio 1.4 (1.0-2.8); Alkaline Phosphatase 84 U/L (38-126); Aspartate Aminotransferase 33 IU/L (14-36); BUN Creatinine Ratio 28.3 (6-22); Bilirubin Total 0.5 mg/dL (0.2-1.3); Blood Urea Nitrogen 17 mg/dL (7-17); Calcium 9.9 mg/dL (8.4-10.2); Carbon Dioxide 33 mmol/L (22-32); Chloride 102 mmol/L (98-107); Estimated Glomerular Filt Rate > 60.0 mL/min (>60); Globulin 3.1 g/dL (1.7-4.1); Glucose 86 mg/dL (80-110); HEMOLYSIS < 15 (0-50); Potassium 4.4 mmol/L (3.4-5.1); Sodium 139 mmol/L (137-145); Total Protein 7.4 g/dL (6.3-8.2)
[2019-12-01 14:00] LABS: Thyroid Stimulating Hormone 1.11 uIU/mL (0.47-4.68)
== END ==
PROVIDERS: Family Provider Internal Medicine Cardiovascular Disease; PCP Family Medicine; Referring Provider Family Medicine; Visit Provider Family Medicine
DX: E03.9 Hypothyroidism, unspecified (principal); I48.0 Paroxysmal atrial fibrillation
CPT/HCPCS: 80053; 83036; 84439; 84443

== ENCOUNTER → 2019-12-08 08:44 | Outpatient (CLI) | payer OTHER, SELFPAY ==
[2019-10-27 13:35] VITALS: BMI 24.7
--- NOTE | 2019-12-08 09:11 | DI.ECHO.S_ITS ---
Echocardiogram Report + + :Name: JOESPH HINES Study Date: 12/08/2019 Height: 61 in : :[facility] Weight: 122 lb : : Gender: Female BSA: 1.5 m2 : :: 1940 Age: 79 yrs BP: 156/92 mmHg: :Reason For Study: Atrial fibrillation : :Ordering Physician: Manny TownsendPerformed By: Melly Card : :Referring: MANNY TOWNSEND N : + + Interpretation Summary Left ventricular systolic function remains normal with an estimated ejection fraction of 55 to 60% without focal wall motion abnormality and appears slightly less dynamic compared to the previous study. There is normal left ventricular size and wall thickness. Diastolic function suggests probable elevated filling pressures. This could not be assessed on the previous study. The right ventricle appears normal. Right ventricular systolic pressure is estimated at 37 mmHg with a CVP of 8 mmHg and may be slightly higher compared to the previous study. Both atria are mildly enlarged but have significantly decreased in size since the previous study. There is moderate mitral regurgitation and moderate tricuspid regurgitation, and both are less prominent compared to the previous study. There is mild aortic valve sclerosis with mild to moderate aortic regurgitation that is unchanged. The patient was in sinus bradycardia at 48 to 52 bpm which is considerably slower compared to the previous exam. Procedure: A two-dimensional transthoracic echocardiogram with color flow and Doppler was performed. The study quality was technically adequate. Comparison is made with the echocardiogram of 01/20/2019. The patient was in sinus bradycardia with heart rates between 48-52 bpm during the exam. This is significantly slower compared to the previous study. Left Ventricle: The left ventricle is normal in size and wall thickness. The estimated left ventricular end diastolic volume is 58 ml. Proximal septal thickening is noted. Left ventricular systolic function is normal without focal wall motion abnormalities. The ejection fraction is estimated to be 55- 60%. This is slightly less dynamic compared to the previous study. Diastolic parameters suggest a pseudonormalization pattern, consistent with probable elevated filling pressures. Right Ventricle: The right ventricle is normal in size and function. This is slightly smaller compared to the previous study. Atria: Both atria are mildly dilated. Both atria have significantly decreased in size since the prior echo exam. There is no Doppler evidence for an interatrial shunt. Mitral Valve: There is mild mitral annular calcification. The mitral valve leaflets appear mildly thickened, but open well. There is moderate mitral regurgitation. This is slightly less prominent compared to the previous study. Aortic Valve: The aortic valve is trileaflet. The aortic valve is slightly calcified. The aortic valve opens well. There is no aortic valve stenosis. There is mild to moderate aortic regurgitation. This is unchanged compared to the previous study. Tricuspid Valve: The tricuspid valve is normal in structure and function. There is moderate tricuspid regurgitation. This is less prominent compared to the previous study. The right ventricular systolic pressure is estimated to be at least 37 mmHg based on an estimated right atrial pressure of 8 mm Hg. Pulmonic Valve: The pulmonic valve is not well seen, but is grossly normal. There is trace pulmonic regurgitation. Great Vessels: The aortic root is normal size. The dimensions of the ascending aorta are normal. The IVC is dilated (diameter is greater than 2.1 cm) yet it collapses greater than 50% with a sniff. This suggests a right atrial pressure of 8 mm Hg. Pericardium/ Pleura There is no pericardial effusion. There is no pleural effusion. MMode/2D Measurements & Calculations LVIDd: 4.6 cm LVOT diam: 2.0 cm LVIDs: 3.4 cm Ao root diam: 3.1 cm FS: 26.8 % asc Aorta Diam: 3.3 cm EPSS: 0.55 cm Ao Arch Diam (Prox Trans): 2.5 cm IVSd: 0.64 cm LVPWd: 0.63 cm LV hsu. diameter/BSA (cm/m^2): 3.0 LV sys. diameter/BSA (cm/m^2): 2.2 LA A2 area: 19.3 cm2 RA long axis: 5.4 cm LA A4 area: 16.6 cm2 RA area: 18.1 cm2 LA length (vol): 4.7 cm RA vol: 52.0 ml LA vol: 58.1 ml RA : 34.0 ml/m2 LA vol index: 38.0 ml/m2 IVC diam: 2.3 cm RVD1 (basal): 3.4 cm TAPSE: 2.4 cm Doppler Measurements & Calculations Ao V2 max: 132.2 cm/sec LVOT Max Alexander: 102.1 cm/sec Ao V2 mean: 79.6 cm/sec LV V1 max P.2 mmHg Ao max P.0 mmHg LV V1 VTI: 26.0 cm Ao mean P.0 mmHg SIERRA(I,D): 2.9 cm2 Ao V2 VTI: 27.9 cm SIERRA(V,D): 2.4 cm2 sev ratio: 0.93 SIERRA indexed to BSA (cm^2/m^2): 1.9 AI P1/2t: 970.9 msec AI dec slope: 123.4 cm/sec2 MV E max alexander: 97.3 cm/sec TR max alexander: 269.8 cm/sec MV A max alexander: 57.4 cm/sec TR max P.1 mmHg MV E/A: 1.7 PA V2 max: 64.5 cm/sec Med Peak E' Alexander: 4.9 cm/sec PA V2 mean: 39.7 cm/sec E/E' med: 19.7 PA mean P.75 mmHg Lat Peak E' Alexander: 8.4 cm/sec PA pr(Accel): -3.2 mmHg E/E' lat: 11.6 E/e' average: 15.7 MV dec time: 0.20 sec SV(LVOT): 81.6 ml Reading Physician:07:36 AM
== END ==
PROVIDERS: Family Provider Internal Medicine Cardiovascular Disease; PCP Family Medicine; Referring Provider Family Medicine; Visit Provider Nurse Practitioner
DX: I08.3 Combined rheumatic disorders of mitral, aortic and tricuspid valves (principal); I48.0 Paroxysmal atrial fibrillation
CPT/HCPCS: 93306

== ENCOUNTER → 2020-02-16 09:51 | Outpatient (CLI) | payer OTHER, SELFPAY ==
[2019-10-27 13:35] VITALS: BMI 24.7
--- NOTE | 2020-02-16 | DI.MG.S_ITS ---
BILATERAL DIGITAL SCREENING MAMMOGRAM 3D/2D WITH CAD: 02/16/2020 CLINICAL: Routine screening. Family history of breast cancer. Comparison is made to exams dated: 01/20/2019 mammogram, 11/27/2017 mammogram, 11/11/2017 mammogram, 11/01/2016 mammogram, and 11/01/2015 mammogram - [facility]. There are scattered fibroglandular elements in both breasts. Current study was also evaluated with a Computer Aided Detection (CAD) system. There are benign vascular calcifications in the right breast. No significant masses, calcifications, or other findings are seen in either breast. There has been no significant interval change. IMPRESSION: BENIGN There is no mammographic evidence of malignancy. A 1 year screening mammogram is recommended. This exam was interpreted at Station ID: [id number]. NOTE: For mammograms, a report in lay terms will be sent to the patient. Approximately 15% of breast malignancies will not be visualized mammographically. In the management of a palpable breast mass, a negative mammogram must not discourage biopsy of a clinically suspicious lesion. Electronically Signed By: Amos arroyo/lissy:02/16/2020 13:02:14 letter sent: Normal Exam ACR BI-RADS Category 2: Benign Finding(s) [id number]
== END ==
PROVIDERS: Family Provider Internal Medicine Cardiovascular Disease; PCP Family Medicine; Referring Provider Family Medicine; Visit Provider Family Medicine
DX: Z12.31 Encounter for screening mammogram for malignant neoplasm of breast (principal); Z80.3 Family history of malignant neoplasm of breast
CPT/HCPCS: 77063; 77067

== ENCOUNTER → 2020-03-07 09:02 | Outpatient (CLI) | payer OTHER, SELFPAY ==
[2019-10-27 13:35] VITALS: BMI 24.7
[2020-03-07 10:21] LABS: Free T4, Direct Thyroxine 0.96 ng/dL (0.78-2.19)
[2020-03-07 10:35] LABS: Thyroid Stimulating Hormone 1.06 uIU/mL (0.47-4.68)
== END ==
PROVIDERS: Family Provider Internal Medicine Cardiovascular Disease; PCP Family Medicine; Referring Provider Family Medicine; Visit Provider Family Medicine
DX: E03.9 Hypothyroidism, unspecified (principal)
CPT/HCPCS: 36415; 84439; 84443

== ENCOUNTER → 2020-03-28 09:12 | Outpatient (CLI) | payer OTHER, SELFPAY ==
[2019-10-27 13:35] VITALS: BMI 24.7
[2020-03-28 10:12] LABS: Alanine Aminotransferase 18 IU/L (<35); Albumin 4.1 g/dL (3.5-5.0); Albumin Globulin Ratio 1.4 (1.0-2.8); Alkaline Phosphatase 91 U/L (38-126); Aspartate Aminotransferase 31 IU/L (14-36); BUN Creatinine Ratio 22.4 (6-22); Bilirubin Total 0.4 mg/dL (0.2-1.3); Blood Urea Nitrogen 13 mg/dL (7-17); Calcium 9.5 mg/dL (8.4-10.2); Carbon Dioxide 36 mmol/L (22-32); Chloride 102 mmol/L (98-107); Estimated Glomerular Filt Rate > 60.0 mL/min (>60); Glucose 94 mg/dL (80-110); HEMOLYSIS < 15 (0-50); Potassium 4.4 mmol/L (3.4-5.1); Sodium 138 mmol/L (137-145); Total Protein 7.1 g/dL (6.3-8.2)
== END ==
PROVIDERS: Family Provider Internal Medicine Cardiovascular Disease; PCP Family Medicine; Referring Provider Internal Medicine Cardiovascular Disease; Visit Provider Internal Medicine Cardiovascular Disease
DX: I48.0 Paroxysmal atrial fibrillation (principal)
CPT/HCPCS: 36415; 80053

== ENCOUNTER → 2020-11-08 13:40 | Outpatient (CLI) | payer MEDICARE, SELFPAY ==
[2020-04-17 15:01] VITALS: BMI 24.7
[2020-11-08 16:08] LABS: BUN Creatinine Ratio 41.5 (6-22); Blood Urea Nitrogen 22 mg/dL (7-17); Calcium 9.8 mg/dL (8.4-10.2); Carbon Dioxide 28 mmol/L (22-32); Chloride 103 mmol/L (98-107); Estimated Glomerular Filt Rate > 60.0 mL/min (>60); Glucose 81 mg/dL (80-110); HEMOLYSIS < 15 (0-50); Potassium 4.4 mmol/L (3.4-5.1); Sodium 135 mmol/L (137-145)
== END ==
PROVIDERS: Family Provider Internal Medicine Cardiovascular Disease; PCP Family Medicine; Referring Provider Internal Medicine Cardiovascular Disease; Visit Provider Internal Medicine Cardiovascular Disease
DX: I48.0 Paroxysmal atrial fibrillation (principal)
CPT/HCPCS: 36415; 80048

== ENCOUNTER → 2020-12-20 09:42 | Outpatient (CLI) | payer MEDICARE, SELFPAY ==
[2020-04-17 15:01] VITALS: BMI 24.7
[2020-12-20 12:20] LABS: Free T4, Direct Thyroxine 0.85 ng/dL (0.78-2.19)
[2020-12-20 12:34] LABS: Thyroid Stimulating Hormone 0.511 uIU/mL (0.47-4.68)
== END ==
PROVIDERS: Family Provider Internal Medicine Cardiovascular Disease; PCP Family Medicine; Referring Provider Family Medicine; Visit Provider Family Medicine
DX: E03.9 Hypothyroidism, unspecified (principal)
CPT/HCPCS: 36415; 84439; 84443

== ENCOUNTER → 2020-12-21 11:01 | Outpatient (CLI) | payer MEDICARE, SELFPAY ==
[2020-04-17 15:01] VITALS: BMI 24.7
[2020-12-25 09:41] LABS: Fecal Immunochemical Test Negative (Negative)
== END ==
PROVIDERS: Family Provider Internal Medicine Cardiovascular Disease; PCP Family Medicine; Referring Provider Family Medicine; Visit Provider Family Medicine
DX: Z12.11 Encounter for screening for malignant neoplasm of colon (principal)
CPT/HCPCS: 82274

== ENCOUNTER → 2021-04-05 15:30 | Outpatient (CLI) | payer MEDICARE, SELFPAY ==
[2020-04-17 15:01] VITALS: BMI 24.7
--- NOTE | 2021-04-05 | DI.ECHO.S_ITS ---
[facility] +---------+ [facility] +---------+ : : [address] : : : : [id number] : : : : Phone: [phone]---------+ Echocardiogram Report + + :Name: JOESPH HINES Study Date: 04/05/2021 Height: 60 in : :[facility] ReadingLocation: Weight: 115 lb : : Gender: Female BSA: 1.5 m2 : :: 1940 Age: 80 yrs BP: 135/80 mmHg: :Reason For Study: MITRAL INSUFFICIENCY : :Ordering Physician: LOAN, : :PATRIC Performed By: Melly Card : :Referring: PATRIC CATES : + + Interpretation Summary The left ventricle is normal in size. The ejection fraction is estimated to be 60-65%. There has been no significant change in LV EF since the previous exam. MV E/A: 1.0 Med Peak E' Alexander: 3.9 cm/sec E/E' med: 19.7. Previously: MV E/A: 1.7 Med Peak E' Alexander: 4.9 cm/sec E/E' med: 19.7 The right ventricle is normal in size and function. There is mild to moderate mitral regurgitation. Compared to the prior echo study, there has been a decrease in the severity of mitral regurgitation. There is mild aortic regurgitation. Compared to the prior echo study, there has been a decrease in the severity of aortic regurgitation. There is mild to moderate tricuspid regurgitation. Compared to the prior echo exam, there has been a decrease in TR severity. The right ventricular systolic pressure is estimated to be at least 24 mmHg based on an estimated right atrial pressure of 3 mm Hg. Compared to the prior echo exam, there has been a decrease in the severity of pulmonary hypertension. Mild atherosclerotic plaque(s) in the aortic arch. Procedure: A two-dimensional transthoracic echocardiogram with color flow and Doppler was performed. The study quality was technically adequate. Comparison is made with the echocardiogram of 12/08/2019. The patient was in sinus rhythm with heart rates between 59-66 bpm during the exam. Left Ventricle: The left ventricle is normal in size. Proximal septal thickening is noted. There is no echo evidence for significant left ventricular outflow tract obstruction. There is no thrombus. The ejection fraction is estimated to be 60-65%. There has been no significant change since the previous exam. There are no focal wall motion abnormalities. MV E/A: 1.0 Med Peak E' Alexander: 3.9 cm/sec E/E' med: 19.7. Right Ventricle: The right ventricle is normal in size and function. Atria: The left atrium is mildly dilated. The left atrium has mildly decreased in size since the prior echo exam. Right atrial size is normal. There is no Doppler evidence for an interatrial shunt. Mitral Valve: There is mild to moderate mitral annular calcification. The mitral valve leaflets appear mildly thickened, but open well. There is mild to moderate mitral regurgitation. Compared to the prior echo study, there has been a decrease in the severity of mitral regurgitation. Aortic Valve: The aortic valve is trileaflet. The aortic valve opens well. There is mild aortic valve sclerosis. There is no aortic valve stenosis. There is mild aortic regurgitation. Compared to the prior echo study, there has been a decrease in the severity of aortic regurgitation. Tricuspid Valve: The tricuspid valve is normal. There is mild to moderate tricuspid regurgitation. Compared to the prior echo exam, there has been a decrease in TR severity. The right ventricular systolic pressure is estimated to be at least 24 mmHg based on an estimated right atrial pressure of 3 mm Hg. Compared to the prior echo exam, there has been a decrease in the severity of pulmonary hypertension. Pulmonic Valve: The pulmonic valve is not well seen, but is grossly normal. There is no pulmonic valvular regurgitation. Great Vessels: The aortic root is normal size. The ascending aorta could not be visualized. Mild atherosclerotic plaque(s) in the aortic arch. The IVC is of normal diameter and collapses greater than 50% with a sniff. This suggests a low right atrial pressure of 3 mm Hg. Pericardium/ Pleura There is no pericardial effusion. There is no pleural effusion. MMode/2D Measurements & Calculations LVIDd: 4.5 cm LVOT diam: 1.9 cm LVIDs: 3.1 cm Ao root diam: 3.3 cm FS: 31.0 % IVSd: 0.63 cm LVPWd: 0.75 cm LV hsu. diameter/BSA (cm/m^2): 3.0 LV sys. diameter/BSA (cm/m^2): 2.1 LA A2 area: 16.6 cm2 RA long axis: 5.4 cm LA A4 area: 18.5 cm2 RA area: 16.7 cm2 LA length (vol): 5.0 cm RA vol: 44.4 ml LA vol: 51.7 ml RA : 30.1 ml/m2 LA vol index: 35.1 ml/m2 IVC diam: 1.7 cm RVD1 (basal): 3.4 cm TAPSE: 1.9 cm Doppler Measurements & Calculations Ao V2 max: 158.5 cm/sec LVOT Max Alexander: 122.2 cm/sec Ao V2 mean: 104.7 cm/sec LV V1 max P.0 mmHg Ao max P.1 mmHg LV V1 VTI: 28.5 cm Ao mean P.1 mmHg SIERRA(I,D): 2.2 cm2 Ao V2 VTI: 35.1 cm SIERRA(V,D): 2.1 cm2 sev ratio: 0.81 SIERRA indexed to BSA (cm^2/m^2): 1.5 AI P1/2t: 699.7 msec AI dec slope: 183.2 cm/sec2 MV E max alexander: 77.1 cm/sec TR max alexander: 228.3 cm/sec MV A max alexander: 73.9 cm/sec TR max P.9 mmHg MV E/A: 1.0 PA V2 max: 86.6 cm/sec Med Peak E' Alexander: 3.9 cm/sec PA V2 mean: 60.6 cm/sec E/E' med: 19.7 PA mean P.6 mmHg Lat Peak E' Alexander: 8.5 cm/sec PA pr(Accel): 34.5 mmHg E/E' lat: 9.1 E/e' average: 14.4 MV dec time: 0.25 sec SV(LVOT): 77.6 ml Reading Physician:11:20 AM
== END ==
PROVIDERS: Family Provider Internal Medicine Cardiovascular Disease; PCP Family Medicine; Referring Provider Internal Medicine Cardiovascular Disease; Visit Provider Internal Medicine Cardiovascular Disease
DX: I08.3 Combined rheumatic disorders of mitral, aortic and tricuspid valves (principal); I70.0 Atherosclerosis of aorta
CPT/HCPCS: 93306

== ENCOUNTER → 2021-04-23 10:43 | Outpatient (CLI) | payer MEDICARE, SELFPAY ==
[2020-04-17 15:01] VITALS: BMI 24.7
[2021-04-23 12:50] LABS: Alanine Aminotransferase 23 IU/L (<35); Albumin 4.3 g/dL (3.5-5.0); Albumin Globulin Ratio 1.5 (1.0-2.8); Alkaline Phosphatase 80 U/L (38-126); Aspartate Aminotransferase 31 IU/L (14-36); Bilirubin Total 0.3 mg/dL (0.2-1.3); Blood Urea Nitrogen 17 mg/dL (7-17); Calcium 9.7 mg/dL (8.4-10.2); Carbon Dioxide 32 mmol/L (22-32); Chloride 102 mmol/L (98-107); Estimated Glomerular Filt Rate > 60.0 mL/min (>60); Globulin 2.9 g/dL (1.7-4.1); Glucose 75 mg/dL (80-110); HEMOLYSIS < 15 (0-50); Magnesium 2.2 mg/dL (1.6-2.3); Potassium 4.3 mmol/L (3.4-5.1); Sodium 139 mmol/L (137-145); Total Protein 7.2 g/dL (6.3-8.2)
== END ==
PROVIDERS: Family Provider Internal Medicine Cardiovascular Disease; PCP Family Medicine; Referring Provider Internal Medicine Cardiovascular Disease; Visit Provider Internal Medicine Cardiovascular Disease
DX: I10 Essential (primary) hypertension (principal); I95.0 Idiopathic hypotension; I48.0 Paroxysmal atrial fibrillation; E61.2 Magnesium deficiency
CPT/HCPCS: 36415; 80053; 83735

== ENCOUNTER → 2021-05-10 10:01 | Outpatient (CLI) | payer MEDICARE, SELFPAY ==
[2020-04-17 15:01] VITALS: BMI 24.7
--- NOTE | 2021-05-10 | DI.MG.S_ITS ---
BILATERAL DIGITAL SCREENING MAMMOGRAM 3D/2D WITH CAD: 05/10/2021 CLINICAL: Routine screening. Family history of breast cancer. Comparison is made to exams dated: 02/16/2020 mammogram, 01/20/2019 mammogram, and 11/11/2017 mammogram - [facility]. There are scattered fibroglandular elements in both breasts. Current study was also evaluated with a Computer Aided Detection (CAD) system. No significant masses, calcifications, or other findings are seen in either breast. There has been no significant interval change. IMPRESSION: NEGATIVE There is no mammographic evidence of malignancy. A 1 year screening mammogram is recommended. This exam was interpreted at Station ID: [id number]. NOTE: For mammograms, a report in lay terms will be sent to the patient. Approximately 15% of breast malignancies will not be visualized mammographically. In the management of a palpable breast mass, a negative mammogram must not discourage biopsy of a clinically suspicious lesion. Electronically Signed By: Artis gaines/lissy:05/10/2021 10:32:14 letter sent: Normal Exam ACR BI-RADS Category 1: Negative 3341F
== END ==
PROVIDERS: Family Provider Internal Medicine Cardiovascular Disease; PCP Family Medicine; Referring Provider Family Medicine; Visit Provider Family Medicine
DX: Z12.31 Encounter for screening mammogram for malignant neoplasm of breast (principal); Z80.3 Family history of malignant neoplasm of breast
CPT/HCPCS: 77063; 77067

== ENCOUNTER → 2021-09-03 13:29 | Outpatient (CLI) | payer MEDICARE, SELFPAY ==
[2020-04-17 15:01] VITALS: BMI 24.7
--- NOTE | 2021-09-03 13:31 | DI.MRI.S_ITS ---
PROCEDURE: MR HEAD/BRAIN WO/W CON INDICATIONS: Unsteadiness on feet TECHNIQUE: Noncontrast axial T1 spin echo, axial T2 fast spin echo, sagittal and axial FLAIR, coronal T2 fast spin echo, axial gradient echo, axial diffusion and ADC through the brain. After the administration of contrast, axial and coronal T1 spin echo with fat saturation through the brain. COMPARISON: None. FINDINGS: Image quality: Excellent. CSF spaces: Basal cisterns are patent. No extra-axial fluid collections. Ventricles are normal in size and shape. Brain: No midline shift. No intracranial bleeds or masses. No abnormal intracranial enhancement. There is cerebral volume loss for age. There is periventricular white matter chronic small vessel ischemic change. The brainstem appears normal. Diffusion-weighted images demonstrate no acute ischemic insults. No chronic ischemic insults. Normal intravascular flow voids are present. Skull and face: Calvarial marrow is normal in signal. Orbits appear normal. Sinuses: Sinuses and mastoids appear clear. IMPRESSION: 1. No acute intracranial process. 2. Moderate atrophy and chronic microvascular ischemic changes. Dictated by: Leona Resendez M.D. on 09/03/2021 at 16:50 Approved by: Leona Resendez M.D. on 09/03/2021 at 16:51
== END ==
PROVIDERS: Family Provider Internal Medicine Cardiovascular Disease; PCP Family Medicine; Referring Provider Specialist; Visit Provider Specialist
DX: G31.9 Degenerative disease of nervous system, unspecified (principal); R26.81 Unsteadiness on feet; R29.6 Repeated falls
CPT/HCPCS: 70553; A9579

== ENCOUNTER → 2022-04-24 10:15 | Outpatient (CLI) | payer MEDICARE, SELFPAY ==
[2020-04-17 15:01] VITALS: BMI 24.7
[2022-04-24 11:06] LABS: Add Manual Diff / Slide Review NO; Basophils Absolute Auto 0 /uL (0-100); Basophils Percent Auto 0.9 % (0-2); Eosinophils Absolute Auto 0 /uL (0-450); Eosinophils Percent Auto 0.8 % (2-4); Hematocrit 42.2 % (36-46); Hemoglobin 13.8 g/dL (12.0-16.0); Lymphocytes Absolute Auto 1700 /uL (1100-4500); Mean Corpuscular HGB Conc 32.7 % (30-36); Mean Corpuscular Hemoglobin 28.8 PG (26-34); Mean Corpuscular Volume 88.1 fL (80-100); Monocytes Absolute Auto 500 /uL (0-900); Neutrophils Absolute Auto 3400 /uL (1500-7000); Neutrophils Percent Auto 60.3 % (50-75); Platelet Count 282 X10^3/uL (150-400); Red Blood Cell Count 4.79 X10^6/uL (4.0-5.2); White Blood Cell Count 5.7 X10^3/uL (4.5-11.0)
[2022-04-24 11:31] LABS: Alanine Aminotransferase 25 IU/L (<35); Albumin 4.5 g/dL (3.5-5.0); Albumin Globulin Ratio 1.4 (1.0-2.8); Alkaline Phosphatase 89 U/L (38-126); Aspartate Aminotransferase 32 IU/L (14-36); BUN Creatinine Ratio 34.5 (6-22); Bilirubin Total 0.4 mg/dL (0.2-1.3); Blood Urea Nitrogen 19 mg/dL (7-17); Calcium 9.1 mg/dL (8.4-10.2); Carbon Dioxide 27 mmol/L (22-32); Chloride 101 mmol/L (98-107); Estimated Glomerular Filt Rate > 60 mL/min (>60); Globulin 3.2 g/dL (1.7-4.1); Glucose 85 mg/dL (80-110); HEMOLYSIS < 15 (0-50); Magnesium 2.1 mg/dL (1.6-2.3); Potassium 4.2 mmol/L (3.4-5.1); Sodium 139 mmol/L (137-145); Total Protein 7.7 g/dL (6.3-8.2)
[2022-04-24 12:00] LABS: Thyroid Stimulating Hormone 0.646 uIU/mL (0.47-4.68)
== END ==
PROVIDERS: Family Provider Internal Medicine Cardiovascular Disease; PCP Family Medicine; Referring Provider Internal Medicine Cardiovascular Disease; Visit Provider Internal Medicine Cardiovascular Disease
DX: I48.0 Paroxysmal atrial fibrillation (principal)
CPT/HCPCS: 36415; 80053; 83735; 84443; 85025

== ENCOUNTER → 2022-05-13 13:45 | Outpatient (CLI) | payer MEDICARE, SELFPAY ==
[2020-04-17 15:01] VITALS: BMI 24.7
--- NOTE | 2022-05-13 13:46 | DI.MG.S_ITS ---
BILATERAL DIGITAL SCREENING MAMMOGRAM 3D/2D WITH CAD: 05/13/2022 CLINICAL: Routine screening. Family history of breast cancer. Comparison is made to exams dated: 05/10/2021 mammogram, 02/16/2020 mammogram, and 01/20/2019 mammogram - [facility]. Both breasts are heterogeneously dense, which may obscure small masses (category c / 51-75% glandular tissue). Current study was also evaluated with a Computer Aided Detection (CAD) system. No significant masses, calcifications, or other findings are seen in either breast. There has been no significant interval change. IMPRESSION: NEGATIVE There is no mammographic evidence of malignancy. A 1 year screening mammogram is recommended. Based on the Tyrer Cuzick model (a risk assessment model) the patient's lifetime risk is 1.9% and her 10 year risk is 0.0%. According to the ACR, ACS, and NCCN guidelines, an annual breast MRI exam along with mammogram is recommended if the patient's lifetime risk is 20% or greater. This exam was interpreted at Station ID: [id number]. NOTE: For mammograms, a report in lay terms will be sent to the patient. Approximately 15% of breast malignancies will not be visualized mammographically. In the management of a palpable breast mass, a negative mammogram must not discourage biopsy of a clinically suspicious lesion. Electronically Signed By: Liu spivey/lissy:05/13/2022 15:52:42 letter sent: Normal Exam ACR BI-RADS Category 1: Negative 3341F
== END ==
PROVIDERS: Family Provider Internal Medicine Cardiovascular Disease; PCP Family Medicine; Referring Provider Family Medicine; Visit Provider Family Medicine
DX: Z12.31 Encounter for screening mammogram for malignant neoplasm of breast (principal); Z80.3 Family history of malignant neoplasm of breast
CPT/HCPCS: 77063; 77067

== ENCOUNTER → 2022-05-28 13:45 | Outpatient (CLI) | payer MEDICARE, SELFPAY ==
[2020-04-17 15:01] VITALS: BMI 24.7
--- NOTE | 2022-05-28 | DI.ECHO.S_ITS ---
[facility] +---------+ Hospital +---------+ : : [address] : : : : [phone] : : : : Phone: [phone] +---------+ Echocardiogram Report + + :Name: JOESPH HINES Study Date: 05/28/2022 Height: 60 in : :[facility] ReadingLocation: Weight: 120 lb : : Gender: Female BSA: 1.5 m2 : :: 1940 Age: 81 yrs BP: 131/82 mmHg: :Reason For Study: ATRIAL FIBRILLATION : :Ordering Physician: KIMBER, : :PATRIC Performed By: Melly Card : :Referring: PATRIC CATES : + + Interpretation Summary The patient was in atrial fibrillation with heart rates between 89-108 bpm during the exam. The ejection fraction is estimated to be 65-70%. The right ventricle is normal in size and function. There is moderate mitral regurgitation. Compared to the prior echo study, there has been an increase in the severity of mitral regurgitation. There is moderate tricuspid regurgitation. Compared to the prior echo exam, there has been an increase in TR severity. The right ventricular systolic pressure is estimated to be at least 47 mmHg based on an estimated right atrial pressure of 8 mm Hg. Compared to the prior echo exam, there has been an increase in the severity of pulmonary hypertension. Procedure: A two-dimensional transthoracic echocardiogram with color flow and Doppler was performed. The study quality was technically adequate. Comparison is made with the echocardiogram of 04/05/2021. The patient was in atrial fibrillation with heart rates between 89-108 bpm during the exam. Left Ventricle: The left ventricle is normal in size. Proximal septal thickening is noted. There is no echo evidence for significant left ventricular outflow tract obstruction. There is no thrombus. The ejection fraction is estimated to be 65-70%. There are no focal wall motion abnormalities. Diastolic function could not be accurately assessed due to atrial fibrillation. Right Ventricle: The right ventricle is normal in size and function. Atria: The left atrium is severely dilated. The left atrium has significantly increased in size since the prior echo exam. The right atrium is mildly dilated. There is no Doppler evidence for an interatrial shunt. Mitral Valve: There is mild to moderate mitral annular calcification. The mitral valve leaflets appear borderline thickened, but open well. There is no mitral valve stenosis. There is moderate mitral regurgitation. There are multiple regurgitant jets present. Compared to the prior echo study, there has been an increase in the severity of mitral regurgitation. Aortic Valve: The aortic valve is trileaflet. There is mild aortic valve sclerosis. The aortic valve opens well. There is no aortic valve stenosis. There is mild aortic regurgitation. Tricuspid Valve: The tricuspid valve is normal. There is moderate tricuspid regurgitation. The right ventricular systolic pressure is estimated to be at least 47 mmHg based on an estimated right atrial pressure of 8 mm Hg. Compared to the prior echo exam, there has been an increase in TR severity. Compared to the prior echo exam, there has been an increase in the severity of pulmonary hypertension. Pulmonic Valve: The pulmonic valve is not well visualized. Great Vessels: The aortic root is normal size. The ascending aorta could not be visualized. The IVC is dilated (diameter is greater than 2.1 cm) yet it collapses greater than 50% with a sniff. This suggests a right atrial pressure of 8 mm Hg. Pericardium/ Pleura There is no pericardial effusion. There is an anterior echo-free space consistent with a fat pad. There is no pleural effusion. MMode/2D Measurements & Calculations LVIDd: 3.5 cm LVOT diam: 2.0 cm LVIDs: 2.3 cm Ao root diam: 3.1 cm FS: 32.6 % Ao Arch Diam (Prox Trans): 2.5 cm IVSd: 0.80 cm LVPWd: 0.96 cm LV hsu. diameter/BSA (cm/m^2): 2.3 LV sys. diameter/BSA (cm/m^2): 1.6 LA A2 area: 18.5 cm2 RA long axis: 5.6 cm LA A4 area: 19.8 cm2 RA area: 19.8 cm2 LA length (vol): 5.3 cm RA vol: 59.9 ml LA vol: 59.1 ml RA : 39.9 ml/m2 LA vol index: 39.3 ml/m2 IVC diam: 2.4 cm RVD1 (basal): 3.5 cm RVD2 (mid): 2.4 cm TAPSE: 1.8 cm Doppler Measurements & Calculations Ao V2 max: 160.1 cm/sec LVOT Max Alexander: 101.4 cm/sec Ao V2 mean: 114.4 cm/sec LV V1 max P.1 mmHg Ao max P.3 mmHg LV V1 VTI: 15.8 cm Ao mean P.8 mmHg SIERRA(I,D): 1.7 cm2 Ao V2 VTI: 30.4 cm SIERRA(V,D): 2.0 cm2 sev ratio: 0.52 SIERRA indexed to BSA (cm^2/m^2): 1.1 AI P1/2t: 473.9 msec AI dec slope: 237.0 cm/sec2 MV E max alexander: 102.5 cm/sec TR max alexander: 311.9 cm/sec MV A max alexander: 2.8 cm/sec TR max P.9 mmHg MV E/A: 36.4 Med Peak E' Alexander: 8.4 cm/sec E/E' med: 12.3 Lat Peak E' Alexander: 10.4 cm/sec E/E' lat: 9.9 E/e' average: 11.1 MV dec time: 0.15 sec SV(LVOT): 50.5 ml Reading Physician:05:50 PM
== END ==
PROVIDERS: Family Provider Internal Medicine Cardiovascular Disease; PCP Family Medicine; Referring Provider Internal Medicine Cardiovascular Disease; Visit Provider Internal Medicine Cardiovascular Disease
DX: I08.3 Combined rheumatic disorders of mitral, aortic and tricuspid valves (principal); I48.0 Paroxysmal atrial fibrillation; I27.20 Pulmonary hypertension, unspecified
CPT/HCPCS: 93306

== ENCOUNTER → 2022-06-05 08:33 | Outpatient (CLI) | payer MEDICARE, SELFPAY ==
[2020-04-17 15:01] VITALS: BMI 24.7
[2022-06-05 09:45] LABS: Cholesterol 157 mg/dL (140-199); HDL Cholesterol 52 mg/dL (40-60); LDL Cholesterol Calculated 94 mg/dL (<100); Triglycerides 55 mg/dL (35-150)
[2022-06-05 09:59] LABS: Free T3, Triiodothyronine Free 3.33 pg/mL (2.77-5.27); Free T4, Direct Thyroxine 1.73 ng/dL (0.78-2.19)
== END ==
PROVIDERS: Family Provider Internal Medicine Cardiovascular Disease; PCP Family Medicine; Referring Provider Family Medicine; Visit Provider Family Medicine
DX: Z00.00 Encounter for general adult medical examination without abnormal findings (principal); E03.9 Hypothyroidism, unspecified; G47.30 Sleep apnea, unspecified; I48.0 Paroxysmal atrial fibrillation; I10 Essential (primary) hypertension
CPT/HCPCS: 36415; 80061; 84439; 84481

== ENCOUNTER → 2022-08-14 09:44 | Outpatient (CLI) | payer MEDICARE, SELFPAY ==
[2020-04-17 15:01] VITALS: BMI 24.7
[2022-08-14 12:14] LABS: Alanine Aminotransferase 22 IU/L (<35); Albumin 4.3 g/dL (3.5-5.0); Albumin Globulin Ratio 1.6 (1.0-2.8); Alkaline Phosphatase 94 U/L (38-126); Aspartate Aminotransferase 29 IU/L (14-36); Bilirubin Total 0.5 mg/dL (0.2-1.3); Blood Urea Nitrogen 20 mg/dL (7-17); Calcium 9.1 mg/dL (8.4-10.2); Carbon Dioxide 29 mmol/L (22-32); Chloride 101 mmol/L (98-107); Estimated Glomerular Filt Rate > 60 mL/min (>60); Globulin 2.7 g/dL (1.7-4.1); Glucose 83 mg/dL (80-110); HEMOLYSIS < 15 (0-50); Potassium 4.6 mmol/L (3.4-5.1); Sodium 138 mmol/L (137-145)
== END ==
PROVIDERS: Family Provider Internal Medicine Cardiovascular Disease; PCP Family Medicine; Referring Provider Family Medicine; Visit Provider Family Medicine
DX: I10 Essential (primary) hypertension (principal)
CPT/HCPCS: 36415; 80053

== ENCOUNTER → 2022-08-28 09:03 | Outpatient (CLI) | payer MEDICARE, SELFPAY ==
[2020-04-17 15:01] VITALS: BMI 24.7
[2022-08-28 11:03] LABS: T4 Total Thyroxine 7.59 ug/dL (5.5-11.0)
[2022-08-28 11:16] LABS: Thyroid Stimulating Hormone 2.34 uIU/mL (0.47-4.68)
== END ==
PROVIDERS: Family Provider Internal Medicine Cardiovascular Disease; PCP Family Medicine; Referring Provider Family Medicine; Visit Provider Family Medicine
DX: E03.9 Hypothyroidism, unspecified (principal)
CPT/HCPCS: 36415; 84436; 84443

== ENCOUNTER → 2022-09-06 13:36 | Outpatient (CLI) | payer MEDICARE, SELFPAY ==
[2020-04-17 15:01] VITALS: BMI 24.7
[2022-09-06 15:24] LABS: Alanine Aminotransferase 24 IU/L (<35); Albumin 4.3 g/dL (3.5-5.0); Albumin Globulin Ratio 1.4 (1.0-2.8); Alkaline Phosphatase 87 U/L (38-126); Aspartate Aminotransferase 29 IU/L (14-36); BUN Creatinine Ratio 39.1 (6-22); Bilirubin Total 0.4 mg/dL (0.2-1.3); Blood Urea Nitrogen 25 mg/dL (7-17); Calcium 9.7 mg/dL (8.4-10.2); Carbon Dioxide 29 mmol/L (22-32); Chloride 100 mmol/L (98-107); Estimated Glomerular Filt Rate > 60 mL/min (>60); Globulin 3.1 g/dL (1.7-4.1); Glucose 87 mg/dL (80-110); HEMOLYSIS < 15 (0-50); Magnesium 2.4 mg/dL (1.6-2.3); Sodium 135 mmol/L (137-145); Total Protein 7.4 g/dL (6.3-8.2)
[2022-09-06 15:54] LABS: TSH w/ Reflex to FT4 2.04 uIU/mL (0.47-4.68)
== END ==
PROVIDERS: Family Provider Internal Medicine Cardiovascular Disease; PCP Family Medicine; Referring Provider Physician Assistant Medical; Visit Provider Physician Assistant Medical
DX: I48.19 Other persistent atrial fibrillation (principal)
CPT/HCPCS: 36415; 80053; 83735; 84443

== ENCOUNTER → 2022-09-26 11:54 | Outpatient (CLI) | payer MEDICARE, SELFPAY ==
[2020-04-17 15:01] VITALS: BMI 24.7
[2022-09-26 13:22] LABS: BUN Creatinine Ratio 33.3 (6-22); Blood Urea Nitrogen 24 mg/dL (7-17); Calcium 9.5 mg/dL (8.4-10.2); Carbon Dioxide 32 mmol/L (22-32); Chloride 101 mmol/L (98-107); Estimated Glomerular Filt Rate > 60 mL/min (>60); Glucose 84 mg/dL (80-110); HEMOLYSIS < 15 (0-50); Potassium 4.7 mmol/L (3.4-5.1); Sodium 136 mmol/L (137-145)
== END ==
PROVIDERS: Family Provider Internal Medicine Cardiovascular Disease; PCP Family Medicine; Referring Provider Physician Assistant Medical; Visit Provider Physician Assistant Medical
DX: I48.19 Other persistent atrial fibrillation (principal)
CPT/HCPCS: 36415; 80048

== ENCOUNTER → 2022-10-01 08:36 | Outpatient (CLI) | payer MEDICARE, SELFPAY ==
[2020-04-17 15:01] VITALS: BMI 24.7
[2022-10-01 09:55] LABS: Free T4, Direct Thyroxine 1.21 ng/dL (0.78-2.19)
[2022-10-01 10:09] LABS: Thyroid Stimulating Hormone 2.29 uIU/mL (0.47-4.68)
[2022-10-02 21:52] LABS: Anti Thyroglobulin Antibody <1.0 IU/mL (0.0-0.9); Thyroid Peroxidase Antibodies <9 IU/mL (0-34)
== END ==
PROVIDERS: Family Provider Internal Medicine Cardiovascular Disease; PCP Family Medicine; Referring Provider Family Medicine; Visit Provider Family Medicine
DX: E03.9 Hypothyroidism, unspecified (principal)
CPT/HCPCS: 36415; 84439; 84443; 86376; 86800

== ENCOUNTER → 2022-10-04 13:34 | Outpatient (CLI) | payer MEDICARE, SELFPAY ==
[2020-04-17 15:01] VITALS: BMI 24.7
[2022-10-04 14:15] LABS: Appearance Urine UA CLEAR; Bilirubin Urine UA NEGATIVE (NEGATIVE); Color Urine UA YELLOW; Glucose Urine UA NEGATIVE (Negative); Ketones Urine UA NEGATIVE (NEGATIVE); Leukocyte Esterase Urine UA 2+ (NEGATIVE); Nitrite Urine UA NEGATIVE (Negative); Occult Blood Urine UA NEGATIVE (Negative); Protein Urine UA NEGATIVE (Negative); Urobilinogen Urine UA 0.2 E.U./dL (0.2)
[2022-10-04 14:39] LABS: RBC Urine None Seen (0-5/HPF); WBC Urine 10-30/HPF (0-5/HPF)
[2022-10-04 14:40] LABS: Bacteria Urine Few (2-10); Culture Indicated Urine Specimen Cultured; Squamous Epithelial Cell Urine 0-1 /HPF (0-5/HPF)
[2022-10-04 14:56] LABS: Add Manual Diff / Slide Review NO; Basophils Absolute Auto 0 /uL (0-100); Basophils Percent Auto 0.6 % (0-2); Eosinophils Absolute Auto 100 /uL (0-450); Eosinophils Percent Auto 0.9 % (2-4); Hematocrit 35.7 % (36-46); Lymphocytes Absolute Auto 1400 /uL (1100-4500); Lymphocytes Percent Auto 18.2 % (25-40); Mean Corpuscular HGB Conc 33.6 % (30-36); Mean Corpuscular Hemoglobin 29.2 PG (26-34); Monocytes Absolute Auto 800 /uL (0-900); Monocytes Percent Auto 10.6 % (3-14); Neutrophils Absolute Auto 5500 /uL (1500-7000); Neutrophils Percent Auto 69.7 % (50-75); Platelet Count 269 X10^3/uL (150-400); Red Cell Distribution Width 14.3 % (11.6-14.8); White Blood Cell Count 7.9 X10^3/uL (4.5-11.0)
== END ==
PROVIDERS: Family Provider Internal Medicine Cardiovascular Disease; PCP Family Medicine; Referring Provider Family Medicine; Visit Provider Family Medicine
DX: I10 Essential (primary) hypertension (principal); R53.81 Other malaise; R53.83 Other fatigue; R10.9 Unspecified abdominal pain
CPT/HCPCS: 36415; 81001; 85025; 87086

== ENCOUNTER → 2023-05-05 08:27 | Outpatient (CLI) | payer MEDICARE, SELFPAY ==
[2020-04-17 15:01] VITALS: BMI 24.7
[2023-05-05 10:28] LABS: Add Manual Diff / Slide Review NO; Basophils Absolute Auto 100 /uL (0-100); Basophils Percent Auto 0.7 % (0-2); Eosinophils Absolute Auto 100 /uL (0-450); Eosinophils Percent Auto 1.6 % (2-4); Hematocrit 36.8 % (36-46); Hemoglobin 12.2 g/dL (12.0-16.0); Lymphocytes Absolute Auto 1500 /uL (1100-4500); Lymphocytes Percent Auto 21.4 % (25-40); Mean Corpuscular HGB Conc 33.3 % (30-36); Mean Corpuscular Volume 90.1 fL (80-100); Monocytes Absolute Auto 600 /uL (0-900); Monocytes Percent Auto 8.4 % (3-14); Neutrophils Absolute Auto 4700 /uL (1500-7000); Neutrophils Percent Auto 67.9 % (50-75); Platelet Count 266 X10^3/uL (150-400); Red Blood Cell Count 4.08 X10^6/uL (4.0-5.2); Red Cell Distribution Width 13.4 % (11.6-14.8); White Blood Cell Count 6.9 X10^3/uL (4.5-11.0)
[2023-05-05 11:08] LABS: HEMOLYSIS < 15 (0-50); Iron 58 ug/dL (37-170)
[2023-05-05 11:19] LABS: Percent Iron Saturation 15 % (15-50); Total Iron Binding Capacity 391 ug/dL (265-497); Transferrin 323 mg/dL (206-381)
[2023-05-05 11:26] LABS: Free T4, Direct Thyroxine 1.26 ng/dL (0.78-2.19)
[2023-05-05 11:40] LABS: Thyroid Stimulating Hormone 1.68 uIU/mL (0.47-4.68)
== END ==
LOC: LAB 08:28
PROVIDERS: Family Provider Internal Medicine Cardiovascular Disease; PCP Family Medicine; Referring Provider Family Medicine; Visit Provider Family Medicine
DX: I10 Essential (primary) hypertension (principal); E03.9 Hypothyroidism, unspecified; I48.91 Unspecified atrial fibrillation
CPT/HCPCS: 36415; 83540; 83550; 84439; 84443; 85025

== ENCOUNTER → 2023-05-23 10:46 | Outpatient (CLI) | payer MEDICARE, SELFPAY ==
[2020-04-17 15:01] VITALS: BMI 24.7
--- NOTE | 2023-05-23 10:47 | DI.MG.S_ITS ---
BILATERAL DIGITAL SCREENING MAMMOGRAM 3D/2D WITH CAD: 05/23/2023 CLINICAL: Routine screening. Family history of breast cancer. Comparison is made to exams dated: 05/13/2022 mammogram, 05/10/2021 mammogram, and 02/16/2020 mammogram - [facility]. Both breasts are heterogeneously dense, which may obscure small masses (category c / 51-75% glandular tissue). Current study was also evaluated with a Computer Aided Detection (CAD) system. No significant masses, calcifications, or other findings are seen in either breast. There has been no significant interval change. IMPRESSION: NEGATIVE There is no mammographic evidence of malignancy. A 1 year screening mammogram is recommended. Based on the Tyrer Cuzick model (a risk assessment model) the patient's lifetime risk is 1.3% and her 10 year risk is 0.0%. According to the ACR, ACS, and NCCN guidelines, an annual breast MRI exam along with mammogram is recommended if the patient's lifetime risk is 20% or greater. This exam was interpreted at Station ID: [id number]. NOTE: For mammograms, a report in lay terms will be sent to the patient. Approximately 15% of breast malignancies will not be visualized mammographically. In the management of a palpable breast mass, a negative mammogram must not discourage biopsy of a clinically suspicious lesion. Electronically Signed By: Liu spivey/lissy:05/23/2023 12:44:35 letter sent: Normal Exam ACR BI-RADS Category 1: Negative 3341F
== END ==
PROVIDERS: Family Provider Internal Medicine Cardiovascular Disease; PCP Family Medicine; Referring Provider Family Medicine; Visit Provider Family Medicine
DX: Z12.31 Encounter for screening mammogram for malignant neoplasm of breast (principal); Z80.3 Family history of malignant neoplasm of breast; R92.333 Mammographic heterogeneous density, bilateral breasts
CPT/HCPCS: 77063; 77067

== ENCOUNTER → 2023-06-16 08:31 | Outpatient (CLI) | payer MEDICARE, SELFPAY ==
[2020-04-17 15:01] VITALS: BMI 24.7
--- NOTE | 2023-06-16 08:35 | DI.ECHO.S_ITS ---
[facility] [facility] +---------+ Hospital +---------+ : : [address] : : : : [id number] : : : : Phone: [phone] +---------+ Echocardiogram Report + + :Name: JOESPH HINES Study Date: 06/16/2023 Height: 60 in : :[facility] ReadingLocation: Weight: 116 lb : : Gender: Female BSA: 1.5 m2 : :: 1940 Age: 82 yrs BP: 159/88 mmHg: :Reason For Study: NONRHEUMATIC MITRAL VALVE INSUFFICIENCY : :Ordering Physician: LOAN, : :PATRIC Performed By: Jairo Fraser : :Referring: PATRIC CATES : + + Interpretation Summary The left ventricle is normal in size. The left ventricular ejection fraction is normal. The ejection fraction is estimated to be 60-65%. No significant change in LVEF. The right ventricle is normal in size and function. Overall mitral regurgitation appears to be in the moderate range. No significant change from the previous study. There is mild aortic regurgitation. Compared to the prior echo study, there has been no change in the severity of aortic regurgitation. There is moderate tricuspid regurgitation. Compared to the prior echo exam, there has been no change in TR severity. The right ventricular systolic pressure is estimated to be at least 44 mmHg based on an estimated right atrial pressure of 8 mm Hg. Previously 47 mmHg. Procedure: A two-dimensional transthoracic echocardiogram with color flow and Doppler was performed. The study quality was technically adequate. Comparison is made with the echocardiogram of 05/28/22. The patient was in normal sinus rhythm during the exam. The heart rate ranged between 48-57 bpm during the study. The patient had occasional PVCs during the exam. Left Ventricle: The left ventricle is normal in size. There is mild concentric left ventricular hypertrophy. Proximal septal thickening is noted. There is no echo evidence for significant left ventricular outflow tract obstruction. There is no thrombus. The ejection fraction is estimated to be 60-65%. The left ventricular ejection fraction is normal. There are no focal wall motion abnormalities. Right Ventricle: The right ventricle is normal in size and function. The right ventricular systolic function is normal. Atria: The left atrium is severely dilated. There has been no significant change since the previous study. Right atrial size is normal. The interatrial septum grossly appears intact with no obvious evidence for an atrial septal defect. Mitral Valve: MAC thickened mitral leaflets. No significant mitral stenosis. There is mild to moderate mitral annular calcification. There is no mitral valve stenosis. There is moderate mitral regurgitation. Overall mitral regurgitation appears to be in the moderate range. No significant change from the previous study. Aortic Valve: The aortic valve is trileaflet. There is no aortic valve stenosis. There is mild aortic regurgitation. Compared to the prior echo study, there has been no change in the severity of aortic regurgitation. Tricuspid Valve: The tricuspid valve is normal. There is no tricuspid stenosis. There is moderate tricuspid regurgitation. The right ventricular systolic pressure is estimated to be at least 44 mmHg based on an estimated right atrial pressure of 8 mm Hg. Compared to the prior echo exam, there has been no change in TR severity. Pulmonic Valve: The pulmonic valve is not well visualized. There is no pulmonic valvular stenosis. There is no pulmonic valvular regurgitation. Great Vessels: The aortic root is normal size. There is aortic root sclerosis/calcification. The dimensions of the ascending aorta are normal. The IVC is dilated (diameter is greater than 2.1 cm) yet it collapses greater than 50% with a sniff. This suggests a right atrial pressure of 8 mm Hg. Pericardium/ Pleura There is no pericardial effusion. There is no pleural effusion. MMode/2D Measurements & Calculations LVIDd: 3.8 cm LVOT diam: 1.8 cm LVIDs: 2.4 cm Ao root diam: 2.9 cm FS: 36.6 % asc Aorta Diam: 3.0 cm IVSd: 1.2 cm Ao Arch Diam (Prox Trans): 2.8 cm LVPWd: 1.1 cm LV hsu. diameter/BSA (cm/m^2): 2.6 LV sys. diameter/BSA (cm/m^2): 1.6 LA A2 area: 20.4 cm2 RA long axis: 4.3 cm LA A4 area: 21.1 cm2 RA area: 13.7 cm2 LA length (vol): 5.5 cm RA vol: 37.0 ml LA vol: 66.2 ml RA : 25.0 ml/m2 LA vol index: 44.7 ml/m2 IVC diam: 2.1 cm RVD1 (basal): 3.3 cm RVD2 (mid): 2.6 cm TAPSE: 2.9 cm Doppler Measurements & Calculations Ao V2 max: 144.3 cm/sec LVOT Max Alexander: 97.6 cm/sec Ao V2 mean: 89.0 cm/sec LV V1 max P.8 mmHg Ao max P.3 mmHg LV V1 VTI: 25.6 cm Ao mean P.8 mmHg SIERRA(I,D): 1.9 cm2 Ao V2 VTI: 35.5 cm SIERRA(V,D): 1.8 cm2 sev ratio: 0.72 SIERRA indexed to BSA (cm^2/m^2): 1.3 AI P1/2t: 644.4 msec AI dec slope: 195.9 cm/sec2 Med Peak E' Alexander: 4.7 cm/sec TR max alexander: 311.1 cm/sec Lat Peak E' Alexander: 11.2 cm/sec TR max P.2 mmHg PA V2 max: 88.8 cm/sec PA V2 mean: 64.6 cm/sec PA mean P.9 mmHg PA pr(Accel): 31.0 mmHg SV(LVOT): 66.7 ml Reading Physician:04:58 PM
[2023-06-16 09:47] LABS: BUN Creatinine Ratio 27.8 (6-22); Blood Urea Nitrogen 15 mg/dL (7-17); Calcium 9.1 mg/dL (8.4-10.2); Carbon Dioxide 29 mmol/L (22-32); Chloride 107 mmol/L (98-107); Estimated Glomerular Filt Rate > 60 mL/min (>60); Glucose 86 mg/dL (80-110); HEMOLYSIS < 15 (0-50); Potassium 4.7 mmol/L (3.4-5.1); Sodium 138 mmol/L (137-145)
[2023-06-16 10:18] LABS: Ferritin 12 ng/mL (11-264)
== END ==
PROVIDERS: Physician Assistant Medical; Family Provider Internal Medicine Cardiovascular Disease; PCP Family Medicine; Referring Provider Internal Medicine Cardiovascular Disease; Visit Provider Internal Medicine Cardiovascular Disease
DX: I48.0 Paroxysmal atrial fibrillation (principal); I08.3 Combined rheumatic disorders of mitral, aortic and tricuspid valves; I48.19 Other persistent atrial fibrillation; I70.0 Atherosclerosis of aorta
CPT/HCPCS: 36415; 80048; 82728; 93306

== ENCOUNTER → 2023-09-17 09:04 | Outpatient (CLI) | payer MEDICARE, SELFPAY ==
[2020-04-17 15:01] VITALS: BMI 24.7
[2023-09-17 11:08] LABS: BUN Creatinine Ratio 30.5 (6-22); Blood Urea Nitrogen 18 mg/dL (7-17); Calcium 8.7 mg/dL (8.4-10.2); Carbon Dioxide 29 mmol/L (22-32); Chloride 106 mmol/L (98-107); Estimated Glomerular Filt Rate > 60 mL/min (>60); Glucose 82 mg/dL (80-110); HEMOLYSIS < 15 (0-50); Potassium 4.6 mmol/L (3.4-5.1); Sodium 138 mmol/L (137-145)
[2023-09-17 11:44] LABS: Ferritin 15 ng/mL (11-264)
== END ==
LOC: LAB 09:05
PROVIDERS: Family Provider Internal Medicine Cardiovascular Disease; PCP Family Medicine; Referring Provider Internal Medicine Cardiovascular Disease; Visit Provider Internal Medicine Cardiovascular Disease
DX: R79.0 Abnormal level of blood mineral (principal); Z51.81 Encounter for therapeutic drug level monitoring; Z79.899 Other long term (current) drug therapy
CPT/HCPCS: 36415; 80048; 82728

== ENCOUNTER → 2023-12-27 08:27 | Outpatient (CLI) | payer MEDICARE, SELFPAY ==
[2020-04-17 15:01] VITALS: BMI 24.7
[2023-12-27 09:06] LABS: Add Manual Diff / Slide Review NO; Basophils Absolute Auto 0 /uL (0-100); Basophils Percent Auto 0.8 % (0-2); Eosinophils Absolute Auto 200 /uL (0-450); Eosinophils Percent Auto 3.6 % (2-4); Hematocrit 37.9 % (36-46); Hemoglobin 12.7 g/dL (12.0-16.0); Lymphocytes Absolute Auto 1500 /uL (1100-4500); Mean Corpuscular HGB Conc 33.5 % (30-36); Mean Corpuscular Hemoglobin 30.2 PG (26-34); Mean Corpuscular Volume 90.1 fL (80-100); Monocytes Absolute Auto 700 /uL (0-900); Monocytes Percent Auto 10.7 % (3-14); Neutrophils Absolute Auto 3900 /uL (1500-7000); Neutrophils Percent Auto 61.9 % (50-75); Platelet Count 256 X10^3/uL (150-400); Red Blood Cell Count 4.21 X10^6/uL (4.0-5.2); Red Cell Distribution Width 13.3 % (11.6-14.8); White Blood Cell Count 6.3 X10^3/uL (4.5-11.0)
[2023-12-27 10:19] LABS: HEMOLYSIS < 15 (0-50)
[2023-12-27 10:24] LABS: Iron 89 ug/dL (37-170)
[2023-12-27 10:26] LABS: Alanine Aminotransferase 18 IU/L (<35); Albumin 3.8 g/dL (3.5-5.0); Albumin Globulin Ratio 1.4 (1.0-2.8); Alkaline Phosphatase 94 U/L (38-126); Aspartate Aminotransferase 29 IU/L (14-36); BUN Creatinine Ratio 38.7 (6-22); Bilirubin Total 0.4 mg/dL (0.2-1.3); Blood Urea Nitrogen 24 mg/dL (7-17); Calcium 9.4 mg/dL (8.4-10.2); Carbon Dioxide 28 mmol/L (22-32); Chloride 102 mmol/L (98-107); Estimated Glomerular Filt Rate > 60 mL/min (>60); Globulin 2.8 g/dL (1.7-4.1); Glucose 95 mg/dL (80-110); HEMOLYSIS < 15 (0-50); Potassium 4.6 mmol/L (3.4-5.1); Sodium 134 mmol/L (137-145); Total Protein 6.6 g/dL (6.3-8.2)
[2023-12-27 10:36] LABS: Percent Iron Saturation 24 % (15-50); Total Iron Binding Capacity 366 ug/dL (265-497); Transferrin 304 mg/dL (206-381)
[2023-12-27 10:57] LABS: Thyroid Stimulating Hormone 2.16 uIU/mL (0.47-4.68)
[2023-12-27 11:00] LABS: Ferritin 27 ng/mL (11-264)
[2023-12-27 15:43] LABS: Free T4, Direct Thyroxine 1.38 ng/dL (0.78-2.19)
== END ==
PROVIDERS: Family Provider Internal Medicine Cardiovascular Disease; PCP Family Medicine; Referring Provider Family Medicine; Visit Provider Family Medicine
DX: D64.9 Anemia, unspecified (principal); I48.91 Unspecified atrial fibrillation; I10 Essential (primary) hypertension; E03.9 Hypothyroidism, unspecified
CPT/HCPCS: 36415; 80053; 82728; 83540; 83550; 84439; 84443; 85025

== ENCOUNTER → 2024-02-25 12:33 | Outpatient (CLI) | payer MEDICARE, SELFPAY ==
[2020-04-17 15:01] VITALS: BMI 24.7
[2024-02-25 13:53] LABS: Hematocrit 40.1 % (36-46); Hemoglobin 13.4 g/dL (12.0-16.0); Mean Corpuscular HGB Conc 33.4 % (30-36); Mean Corpuscular Hemoglobin 30.2 PG (26-34); Mean Corpuscular Volume 90.4 fL (80-100); Platelet Count 271 X10^3/uL (150-400); Red Blood Cell Count 4.43 X10^6/uL (4.0-5.2); Red Cell Distribution Width 13.8 % (11.6-14.8); White Blood Cell Count 7.8 X10^3/uL (4.5-11.0)
[2024-02-25 14:32] LABS: HEMOLYSIS < 15 (0-50); Iron 97 ug/dL (37-170)
[2024-02-25 14:34] LABS: Alanine Aminotransferase 18 IU/L (<35); Albumin 4.2 g/dL (3.5-5.0); Albumin Globulin Ratio 1.7 (1.0-2.8); Alkaline Phosphatase 82 U/L (38-126); Aspartate Aminotransferase 30 IU/L (14-36); BUN Creatinine Ratio 37.3 (6-22); Bilirubin Total 0.5 mg/dL (0.2-1.3); Blood Urea Nitrogen 25 mg/dL (7-17); Calcium 9.9 mg/dL (8.4-10.2); Carbon Dioxide 30 mmol/L (22-32); Chloride 102 mmol/L (98-107); Estimated Glomerular Filt Rate > 60 mL/min (>60); Globulin 2.5 g/dL (1.7-4.1); Glucose 79 mg/dL (80-110); HEMOLYSIS < 15 (0-50); Potassium 4.5 mmol/L (3.4-5.1); Sodium 137 mmol/L (137-145); Total Protein 6.7 g/dL (6.3-8.2)
[2024-02-25 14:43] LABS: Percent Iron Saturation 26 % (15-50); Total Iron Binding Capacity 376 ug/dL (265-497); Transferrin 295 mg/dL (206-381)
[2024-02-25 15:08] LABS: Ferritin 27 ng/mL (11-264)
== END ==
LOC: LAB 12:35
PROVIDERS: Family Provider Internal Medicine Cardiovascular Disease; PCP Family Medicine; Referring Provider Nurse Practitioner; Visit Provider Nurse Practitioner
DX: I48.19 Other persistent atrial fibrillation (principal); D64.9 Anemia, unspecified
CPT/HCPCS: 36415; 80053; 82728; 83540; 83550; 85027

== ENCOUNTER → 2024-05-03 08:56 | Outpatient (CLI) | payer MEDICARE, SELFPAY ==
[2020-04-17 15:01] VITALS: BMI 24.7
[2024-05-03 09:28] LABS: Add Manual Diff / Slide Review NO; Basophils Absolute Auto 0 /uL (0-100); Basophils Percent Auto 0.9 % (0-2); Eosinophils Absolute Auto 100 /uL (0-450); Eosinophils Percent Auto 2.5 % (2-4); Hematocrit 38.8 % (36-46); Lymphocytes Absolute Auto 1300 /uL (1100-4500); Lymphocytes Percent Auto 25.1 % (25-40); Mean Corpuscular HGB Conc 33.6 % (30-36); Mean Corpuscular Hemoglobin 30.4 PG (26-34); Mean Corpuscular Volume 90.7 fL (80-100); Monocytes Absolute Auto 500 /uL (0-900); Monocytes Percent Auto 9.7 % (3-14); Neutrophils Absolute Auto 3200 /uL (1500-7000); Neutrophils Percent Auto 61.8 % (50-75); Platelet Count 220 X10^3/uL (150-400); Red Blood Cell Count 4.28 X10^6/uL (4.0-5.2); Red Cell Distribution Width 13.9 % (11.6-14.8); White Blood Cell Count 5.2 X10^3/uL (4.5-11.0)
[2024-05-03 09:45] LABS: HEMOLYSIS < 15 (0-50); Iron 77 ug/dL (37-170)
[2024-05-03 09:57] LABS: Percent Iron Saturation 25 % (15-50); Total Iron Binding Capacity 307 ug/dL (265-497); Transferrin 274 mg/dL (206-381)
[2024-05-03 10:20] LABS: Ferritin 26 ng/mL (11-264)
[2024-05-03 10:35] LABS: Vitamin B12 892 pg/mL (239-931)
== END ==
PROVIDERS: Family Provider Internal Medicine Cardiovascular Disease; PCP Family Medicine; Referring Provider Family Medicine; Visit Provider Family Medicine
DX: D50.9 Iron deficiency anemia, unspecified (principal)
CPT/HCPCS: 82607; 82728; 83540; 83550; 85025

== ENCOUNTER → 2024-05-31 11:48 | Outpatient (CLI) | payer MEDICARE, SELFPAY ==
[2020-04-17 15:01] VITALS: BMI 24.7
--- NOTE | 2024-05-31 11:49 | DI.MG.S_ITS ---
BILATERAL DIGITAL SCREENING MAMMOGRAM 3D/2D WITH CAD: 05/31/2024 CLINICAL: Routine screening. Family history of breast cancer. Comparison is made to exams dated: 05/23/2023 mammogram, 05/13/2022 mammogram, and 05/10/2021 mammogram - [facility]. The breasts are heterogeneously dense, which may obscure small masses (category c / 51-75% glandular tissue). Current study was also evaluated with a Computer Aided Detection (CAD) system. No significant masses, calcifications, or other findings are seen in either breast. There has been no significant interval change. IMPRESSION: NEGATIVE There is no mammographic evidence of malignancy. A 1 year screening mammogram is recommended. Based on the Tyrer Cuzick model (a risk assessment model) the patient's lifetime risk is 0.6% and her 10 year risk is 0.0%. According to the ACR, ACS, and NCCN guidelines, an annual breast MRI exam along with mammogram is recommended if the patient's lifetime risk is 20% or greater. This exam was interpreted at Station ID: [id number]. NOTE: For mammograms, a report in lay terms will be sent to the patient. Approximately 15% of breast malignancies will not be visualized mammographically. In the management of a palpable breast mass, a negative mammogram must not discourage biopsy of a clinically suspicious lesion. Electronically Signed By: Arleen crouch/lissy:05/31/2024 17:13:51 letter sent: Normal Exam ACR BI-RADS Category 1: Negative
== END ==
PROVIDERS: Family Provider Internal Medicine Cardiovascular Disease; PCP Family Medicine; Referring Provider Family Medicine; Visit Provider Family Medicine
DX: Z12.31 Encounter for screening mammogram for malignant neoplasm of breast (principal); Z80.3 Family history of malignant neoplasm of breast; R92.333 Mammographic heterogeneous density, bilateral breasts
CPT/HCPCS: 77063; 77067

== ENCOUNTER 2024-09-02 11:02 | Emergency (ER) | payer MEDICARE, SELFPAY ==
[2020-04-17 15:01] VITALS: BMI 24.7
[2024-09-02 11:23] VITALS: BP 173/81; PULSE 58; RESP 16; TEMP 37; O2SAT 97; BMI 22.4
--- NOTE | 2024-09-02 11:28 | DI.RAD.S_ITS ---
PROCEDURE: XR HIP W PEL IF DONE LT 2V INDICATIONS: fall on left hip TECHNIQUE: AP pelvis with lateral view(s) of the left hip(s). COMPARISON: None. FINDINGS AND IMPRESSION: Mildly displaced left pubic ring fractures. No definite femoral neck fracture by radiography. [id number] bilateral hip arthrosis, lumbosacral, and pubic symphysis degenerative changes. Moderate to large fecal loading. Dictated by: Liu Cerrato M.D. on 09/02/2024 at 12:19 Approved by: Liu Cerrato M.D. on 09/02/2024 at 12:20
[2024-09-02 13:26] VITALS: BP 138/81; PULSE 50; RESP 16; TEMP 36.8; O2SAT 96
--- NOTE | 2024-09-02 16:12 | ED_ITS ---
HPI - Extremity Injury (Lower) <Jalyn Martinez PA-C - Last Filed: 09/02/24 19:35> General Chief Complaint: Extremity Injury, Lower Stated Complaint: Fall hurt left hip no blood thinners Time Seen by Provider: 09/02/24 15:20 History of Present Illness HPI Narrative: Ms. Rdz is a very pleasant 84-year-old female with a past medical history of osteoporosis, hypertension, vaginal pessary, prior pelvic fractures who presents to the emergency department for left hip pain after a ground level fall yesterday. Patient states while walking she accidentally tripped and fell forward, she started developing some pain of the left hip but was able to walk so she did not want to come to the ER however today her family recommended that she come. She is ambulatory using walking sticks. Describes pain on the left lateral hip region, she is slight bruising in this area. She also has some skin tears of the left elbow. She denies any symptoms that precipitated the fall describes it as accidental trip. She braced herself with the left elbow, she denies hitting her head, loss of consciousness, neck pain, back pain, any other injuries. She is not taking blood thinners, she stoped taking Eliquis in April of this year. Denies abdominal pain, nausea, vomiting, diarrhea, constipation, dysuria, hematuria. Related Data Home Medications Medication Instructions Recorded Confirmed CoQ-10 1 cap PO DAILY 01/05/18 07/23/24 Vitamin D3 1 cap PO DAILY 01/05/18 07/23/24 multivitamin 1 tab PO DAILY 01/05/18 07/23/24 magnesium malate See Rx Instructions .Route .COMPLEX 10/07/18 07/23/24 Ferrochel Iron Bisglycinate - Now 18 mg PO DAILY 11/02/18 07/23/24 Brand sotalol 80 mg tablet 40 mg PO BID 03/08/24 07/23/24 Previous Rx's Medication Instructions Recorded levothyroxine 25 mcg tablet 25 mcg PO DAILY #90 tabs 11/03/23 estradiol 0.01% (0.1 mg/gram) 1 g vaginal 3XW #42.5 grams 11/04/23 vaginal cream metronidazole 0.75 % (37.5 mg/5 1 appful vaginal BEDTIME 5 days 03/05/24 gram) vaginal gel #70 grams oxyquinoline 0.025 %-sodium lauryl See Rx Instructions vaginal 07/23/24 sulfate 0.01 % vaginal gel .COMPLEX #113.4 grams (Trimo-[place]avenport Jelly) estradiol 10 mcg vaginal tablet 10 mcg vaginal 3XW #36 tabs 08/25/24 Allergies Allergy/AdvReac Type Severity Reaction Status Date / Time prochlorperazine AdvReac Mild Petechiae Verified 07/23/24 13:21 [PROCHLORPERAZINE] Review of Systems <Jalyn Martinez PA-C - Last Filed: 09/02/24 19:35> Review of Systems ROS Unobtainable: All systems reviewed & are unremarkable except as noted in HPI and below Patient History <Jalyn Martinez PA-C - Last Filed: 09/02/24 19:35> Medical History Anemia Chronic lower back pain Encounter for annual wellness exam in Medicare patient Well adult on routine health check Melanoma (~2016) Sleep apnea Partial seizure (~1986) Herniated disc Scoliosis Disorder of lumbar spine Lumbar compression fracture Mumps Measles Chicken pox Cataracts, bilateral Presence of pessary (~2006) Hypothyroidism (~1979) Skin cancer (~2017) Atrial fibrillation (~2008) Healthy adult Surgical History Anesthesia Fracture of left radius (~07/2017) History of tubal ligation (~1970) History of tonsillectomy and adenoidectomy (~1944) No pertinent past surgical history Family History Brother Dissecting aneurysm of thoracic aorta Sister Cancer Social History household members: spouse second hand exposure: No alcohol intake: never substance use type: does not use alcohol intake frequency: 0-2 drinks per day Exam <Jalyn Martinez PA-C - Last Filed: 09/02/24 19:35> Narrative Exam Narrative: GENERAL: 84 year old patient appears stated age. Very frail elderly petite patient, in no acute distress. HEAD: Atraumatic. Normocephalic. EYES: PERRL. Extraocular motions intact. No scleral icterus. No injection or drainage. ENT: Nose without bleeding NECK: Trachea midline. Cervical ROM intact. CARDIOVASCULAR: Regular rate and rhythm. RESPIRATORY: ?Nonlabored respirations. ?Speaking in clear, full sentences. ?Clear to auscultation. GASTROINTESTINAL: Abdomen soft, non-tender, nondistended. EXTREMITIES: Tenderness to palpation of left lateral hip overlying region of the femoral trochanter. Bilateral feet are warm and perfused with a proximally 2nd capillary refill. Left elbow skin tear with swelling, no focal bony tenderness, no pain with range of motion. BACK: Nontender without deformity. NEURO: AOx3. ?Clear speech. ?Moves all 4 extremities appropriately. Patient is able to ambulate independently. SKIN: Left elbow skin tear, minimal ecchymosis overlying lateral left hip. Initial Vital Signs Initial Vital Signs: Vital Signs Temperature 98.6 F 09/02/24 11:23 Pulse Rate 58 L 09/02/24 11:23 Respiratory Rate 16 09/02/24 11:23 Blood Pressure 173/81 H 09/02/24 11:23 Pulse Oximetry 97 09/02/24 11:23 Oxygen Delivery Method Room Air 09/02/24 11:23 <Nitesh Ashraf MD - Last Filed: 09/02/24 20:56> Initial Vital Signs Initial Vital Signs: Vital Signs Temperature 98.6 F 09/02/24 11:23 Pulse Rate 58 L 09/02/24 11:23 Respiratory Rate 16 09/02/24 11:23 Blood Pressure 173/81 H 09/02/24 11:23 Pulse Oximetry 97 09/02/24 11:23 Oxygen Delivery Method Room Air 09/02/24 11:23 Course <Jalyn Martinez PA-C - Last Filed: 09/02/24 19:35> Orders Ordered: ED Orders 09/02/24 16:12 XR chest 1V Stat XR elbow LT min 3V Stat Discontinued Medications Bacitracin (Bacitracin Oint 0.9 Gm Pckt) 1 applic TOP NOW ONE Stop: 09/02/24 16:19 Last Admin: 09/02/24 16:25 Dose: 1 applic Documented By: Vital Signs Vital signs: Vital Signs - 8 hr 09/02/24 13:26 09/02/24 17:29 Temperature 98.2 F 98.6 F Pulse Rate 50 L 68 Respiratory Rate 16 16 Blood Pressure 138/81 155/78 H Pulse Oximetry 96 98 Oxygen Delivery Method Room Air Room Air <Nitesh Ashraf MD - Last Filed: 09/02/24 20:56> Orders Ordered: ED Orders 09/02/24 16:12 XR chest 1V Stat XR elbow LT min 3V Stat Discontinued Medications Bacitracin (Bacitracin Oint 0.9 Gm Pckt) 1 applic TOP NOW ONE Stop: 09/02/24 16:19 Last Admin: 09/02/24 16:25 Dose: 1 applic Documented By: Vital Signs Vital signs: Vital Signs - 8 hr 09/02/24 13:26 09/02/24 17:29 Temperature 98.2 F 98.6 F Pulse Rate 50 L 68 Respiratory Rate 16 16 Blood Pressure 138/81 155/78 H Pulse Oximetry 96 98 Oxygen Delivery Method Room Air Room Air MDM - Extremity Injury (Lower) <Jalyn Martinez PA-C - Last Filed: 09/02/24 19:35> Medical Records Attestation: I reviewed the patient's medical records. Imaging Data Chest x-ray: Radiologist's Impression: PROCEDURE: XR CHEST 1V INDICATIONS: fall TECHNIQUE: One view of the chest was acquired. COMPARISON: [facility], CHEST 1 VIEW, 02/04/2016, 8:52. FINDINGS AND IMPRESSION: On this single view study, no dense airspace disease or pleural effusion. Suspected atelectasis or scarring in the right mid lung. No definite pneumothorax. Borderline cardiomegaly. Tortuous aorta. Degenerative osseous changes and spinal curvature. If there is high concern for occult injury, consider CT. Dictated by: Liu Cerrato M.D. on 09/02/2024 at 16:38 Approved by: Liu Cerrato M.D. on 09/02/2024 at 16:39 Pelvic & Left Hip X-Ray: Radiologist's Impression: PROCEDURE: XR HIP W PEL IF DONE LT 2V INDICATIONS: fall on left hip TECHNIQUE: AP pelvis with lateral view(s) of the left hip(s). COMPARISON: None. FINDINGS AND IMPRESSION: Mildly displaced left pubic ring fractures. No definite femoral neck fracture by radiography. [id number] bilateral hip arthrosis, lumbosacral, and pubic symphysis degenerative changes. Moderate to large fecal loading. Dictated by: Liu Cerrato M.D. on 09/02/2024 at 12:19 Approved by: Liu Cerrato M.D. on 09/02/2024 at 12:20 Left Elbow X-Ray: Radiologist's Impression: PROCEDURE: XR ELBOW LT MIN 3V INDICATIONS: fall, elbow injury TECHNIQUE: 3 views of the elbow were acquired. COMPARISON: None. FINDINGS AND IMPRESSION: No dislocation or acute displaced fracture. Mild elbow degenerative changes. No significant joint effusion. If there is high concern for occult injury, consider repeat radiography or cross-sectional imaging. Dictated by: Liu Cerrato M.D. on 09/02/2024 at 16:39 Approved by: Liu Cerrato M.D. on 09/02/2024 at 16:39 MDM Narrative Medical decision making narrative: 84-year-old female with a past medical history of osteoporosis, hypertension, vaginal pessary, prior pelvic fractures who presents to the emergency department for left hip pain after a ground level fall yesterday. Pelvis and hip x-ray obtained in triage revealing mildly displaced pubic ring fractures. No definite femoral neck fracture by radiography. Patient is ambulatory and declining the need for pain medication. Differential diagnosis includes but is not limited to pelvic fracture, hip fracture, left elbow fracture, skin tear, contusion, etc. On exam the patient is in no acute distress, nontoxic appearing, vital signs appropriate. X-ray reveals a mildly displaced left pubic ring fracture, patient is having pain on the lateral left hip that is reported to be quite mild, declines wanting any pain medication. She is actually hoping to be discharged promptly so she can go home and get the [place]. Will add on left elbow and chest x-ray and consult ortho. Discussed case with on-call orthopedic surgeon Dr. Almanza, he reviewed patient imaging, recommends ambulation with walker and physical therapy, if patient feels well and wants to go home she absolutely can. Do not need CT scan. He recommends patient follows up with her PCP early, she may benefit from osteoporosis medication, Forteo. He recommends following up with himself in clinic, doing a fall prevention class, and continuing her physical therapy. Left elbow x-ray and chest x-ray revealed no acute abnormalities. I did print both imaging and provide her with copies and discuss all chronic incidental findings. Patient feels well, is ambulatory and is eagerly requesting discharge home. Recommended supportive care, Tylenol for pain, prompt follow up with PCP/ortho. She has a walker at home, she does not want 1 here. Discussed strict ED return precautions. She verbalized understanding of all information agreeable to the plan. She is stable for discharge home. Discharge Plan Departure Patient Disposition: Home Clinical Impression: Ground-level fall Closed fracture of ramus of left pubis Qualifiers: Encounter type: initial encounter Qualified Code(s): S32.592A - Other specified fracture of left pubis, initial encounter for closed fracture Skin tear of left elbow without complication Qualifiers: Encounter type: initial encounter Qualified Code(s): S51.012A - Laceration without foreign body of left elbow, initial encounter Instructions: DI for Pelvic Fracture Activity Restrictions/Additional Instructions: Dear Ms. Rdz, Thank you for coming to the emergency department. Today x-rays showed a fracture of your left pubic ring. I spoke with the orthopedic surgeon, Dr. Almanza, who would like to see you in his clinic so please call to schedule an appointment. Please use a walker to help any time you walk to avoid recurrent falls. You will need to continue going to physical therapy, he also recommends following up with your primary care doctor as you may benefit from being on an osteoporosis medication. Return to the emergency department if develop any new or worsening symptoms. Please follow up with your primary care doctor within the next 2-3 days for ER follow-up. (If you do not have a PCP you can call [phone]. ?to schedule an appointment with an [facility] Primary Care Provider) IF YOU DEVELOP ANY NEW OR WORSENING SYMPTOMS, RETURN TO THE ER! Please read the attached instructions, they highlight more specific treatments and interventions for you at home. Thank you for letting me participate in your care, Jalyn Martinez PA-C Prescriptions: No Action Ferrochel Iron Bisglycinate - Now Brand 18 mg PO DAILY Patient Comments: Started on 12/13/16. levothyroxine 25 mcg tablet 25 mcg PO DAILY Qty: 90 3RF sotalol 80 mg tablet 40 mg PO BID Rx Instructions: 40 mg in the AM, 40 mg in PM estradiol 10 mcg tablet 10 mcg vaginal 3XW Qty: 36 3RF metronidazole 0.75 % (37.5mg/5 gram) gel 1 appful vaginal BEDTIME 5 Days Qty: 70 3RF Trimo-Davenport Jelly 0.025-0.01 % gel See Rx Instructions vaginal .COMPLEX Qty: 113.4 12RF Rx Instructions: Apply 1 full applicator vaginally each week. magnesium malate See Rx Instructions .ROUTE .COMPLEX Patient Comments: 1/2 tsp mixed with protein shake PO DAILY. Rx Instructions: 1/2 tsp mixed with protein shake PO DAILY. estradiol 0.01 % (0.1 mg/gram) cream 1 g vaginal 3XW Qty: 42.5 12RF Rx Instructions: Apply 1 g PV hs x7 days, then PV hs 3 nights weekly multivitamin Tablet 1 tab PO DAILY CoQ-10 1 cap PO DAILY Vitamin D3 1 cap PO DAILY Referrals: Luis A Knox DO [Primary Care Provider] - Joseph Almanza MD [Physician] - (Mildly displaced left pubic ring fractures. No definite femoral neck fracture by radiography.) Stand Alone Forms: Patient Portal/API/Survey ED Sign-out <Nitesh Ashraf MD - Last Filed: 09/02/24 20:56> Cosign ED Attending Cosignature Attestation: I was immediately available in the department for consultation. This documentation has been reviewed and I agree with assessment and plan. Supervised by Nitesh Ashraf MD
[2024-09-02] MEDS: BACITRACIN OINT 0.9 GM PCKT 1 APPLIC TOP (16:25)
[2024-09-02 17:29] VITALS: BP 155/78; PULSE 68; RESP 16; TEMP 37; O2SAT 98
== END 2024-09-02 17:30 | disposition home or self-care (01) ==
PROVIDERS: Emergency Provider Physician Assistant; Family Provider Internal Medicine Cardiovascular Disease; PCP Family Medicine
DX: S32.592A Other specified fracture of left pubis, initial encounter for closed fracture (principal); S51.012A Laceration without foreign body of left elbow, initial encounter; W18.30XA Fall on same level, unspecified, initial encounter
CPT/HCPCS: 71045; 73080; 73502; 99282; 99283

== ENCOUNTER → 2024-09-20 07:12 | Outpatient (CLI) | payer MEDICARE, SELFPAY ==
[2020-04-17 15:01] VITALS: BMI 24.7
[2024-09-20 08:00] LABS: Add Manual Diff / Slide Review NO; Basophils Absolute Auto 0 /uL (0-100); Basophils Percent Auto 0.7 % (0-2); Eosinophils Absolute Auto 100 /uL (0-450); Eosinophils Percent Auto 2.3 % (2-4); Hematocrit 41.3 % (36-46); Hemoglobin 13.7 g/dL (12.0-16.0); Lymphocytes Absolute Auto 1300 /uL (1100-4500); Lymphocytes Percent Auto 24.4 % (25-40); Mean Corpuscular HGB Conc 33.2 % (30-36); Mean Corpuscular Volume 90.6 fL (80-100); Monocytes Absolute Auto 500 /uL (0-900); Monocytes Percent Auto 8.8 % (3-14); Neutrophils Absolute Auto 3500 /uL (1500-7000); Neutrophils Percent Auto 63.8 % (50-75); Platelet Count 293 X10^3/uL (150-400); Red Blood Cell Count 4.57 X10^6/uL (4.0-5.2); Red Cell Distribution Width 13.3 % (11.6-14.8); White Blood Cell Count 5.4 X10^3/uL (4.5-11.0)
[2024-09-20 08:05] LABS: HEMOLYSIS < 15 (0-50)
[2024-09-20 08:09] LABS: HEMOLYSIS < 15 (0-50); Iron 84 ug/dL (37-170)
[2024-09-20 08:13] LABS: Alanine Aminotransferase 18 IU/L (<35); Albumin 4.4 g/dL (3.5-5.0); Albumin Globulin Ratio 1.8 (1.0-2.8); Alkaline Phosphatase 137 U/L (38-126); Aspartate Aminotransferase 30 IU/L (14-36); BUN Creatinine Ratio 26.8 (6-22); Bilirubin Total 0.5 mg/dL (0.2-1.3); Blood Urea Nitrogen 19 mg/dL (7-17); Calcium 9.5 mg/dL (8.4-10.2); Carbon Dioxide 27 mmol/L (22-32); Chloride 102 mmol/L (98-107); Estimated Glomerular Filt Rate > 60 mL/min (>60); Globulin 2.4 g/dL (1.7-4.1); Glucose 93 mg/dL (70-99); Potassium 4.8 mmol/L (3.4-5.1); Sodium 137 mmol/L (137-145); Total Protein 6.8 g/dL (6.3-8.2)
[2024-09-20 08:21] LABS: Percent Iron Saturation 24 % (15-50); Total Iron Binding Capacity 350 ug/dL (265-497); Transferrin 293 mg/dL (206-381)
[2024-09-20 08:49] LABS: Ferritin 31 ng/mL (11-264)
[2024-09-20 09:02] LABS: Vitamin B12 > 1000 pg/mL (239-931)
== END ==
PROVIDERS: Family Provider Internal Medicine Cardiovascular Disease; PCP Family Medicine; Referring Provider Family Medicine; Visit Provider Family Medicine
DX: E03.9 Hypothyroidism, unspecified (principal); M81.0 Age-related osteoporosis without current pathological fracture; I10 Essential (primary) hypertension; S32.592A Other specified fracture of left pubis, initial encounter for closed fracture; X58.XXXA Exposure to other specified factors, initial encounter
CPT/HCPCS: 36415; 80053; 82607; 82728; 83540; 83550; 85025

== ENCOUNTER → 2025-01-11 11:05 | Outpatient (CLI) | payer MEDICARE, SELFPAY ==
[2020-04-17 15:01] VITALS: BMI 24.7
[2025-01-11 12:35] LABS: Add Manual Diff / Slide Review NO; Hematocrit 42.0 % (36-46); Hemoglobin 14.1 g/dL (12.0-16.0); Lymphocytes Absolute Auto 1600 /uL (1100-4500); Mean Corpuscular HGB Conc 33.5 % (30-36); Mean Corpuscular Hemoglobin 29.8 PG (26-34); Mean Corpuscular Volume 88.9 fL (80-100); Platelet Count 265 X10^3/uL (150-400)
[2025-01-11 12:54] LABS: HEMOLYSIS < 15 (0-50); Iron 106 ug/dL (37-170)
[2025-01-11 12:56] LABS: Alanine Aminotransferase 18 IU/L (<35); Albumin 4.5 g/dL (3.5-5.0); Albumin Globulin Ratio 1.7 (1.0-2.8); Alkaline Phosphatase 89 U/L (38-126); Blood Urea Nitrogen 21 mg/dL (7-17); Calcium 9.7 mg/dL (8.4-10.2); Carbon Dioxide 28 mmol/L (22-32); Chloride 102 mmol/L (98-107); Estimated Glomerular Filt Rate > 60 mL/min (>60); Globulin 2.7 g/dL (1.7-4.1); Glucose 76 mg/dL (70-99); HEMOLYSIS < 15 (0-50); Potassium 4.8 mmol/L (3.4-5.1); Sodium 137 mmol/L (137-145); Total Protein 7.2 g/dL (6.3-8.2)
[2025-01-11 13:08] LABS: Percent Iron Saturation 28 % (15-50); Total Iron Binding Capacity 380 ug/dL (265-497); Transferrin 317 mg/dL (206-381)
[2025-01-11 13:26] LABS: TSH w/ Reflex to FT4 1.89 uIU/mL (0.47-4.68)
[2025-01-11 13:30] LABS: Ferritin 23 ng/mL (11-264)
[2025-01-11 13:45] LABS: Vitamin B12 900 pg/mL (239-931)
== END ==
PROVIDERS: Family Provider Internal Medicine Cardiovascular Disease; PCP Family Medicine; Referring Provider Family Medicine; Visit Provider Family Medicine
DX: D50.9 Iron deficiency anemia, unspecified (principal); I10 Essential (primary) hypertension; E03.9 Hypothyroidism, unspecified
CPT/HCPCS: 80053; 82607; 82728; 83540; 83550; 84443; 85025

== ENCOUNTER 2025-04-08 11:10 | Emergency (ER) | payer MEDICARE, SELFPAY ==
[2020-04-17 15:01] VITALS: BMI 24.7
[2025-04-08] VITALS (70 sets, daily range): BP systolic 139–189; BP diastolic 80–129; PULSE 68–100; RESP 13–23; TEMP 36.7; O2SAT 94–100; BMI 23.5
--- NOTE | 2025-04-08 | DI.CT.S_ITS ---
PROCEDURE: CT STROKE INDICATIONS: STROKE TECHNIQUE: Noncontrast 4.5 mm thick angled axial sections acquired from the foramen magnum to the vertex, with coronal reformats. For radiation dose reduction, the following was used: automated exposure control, adjustment of mA and/or kV according to patient size. COMPARISON: None. FINDINGS: Image quality: Diagnostic. CSF spaces: Basal cisterns are patent. No extra-axial fluid collections. Ventricles are normal in size and shape. Brain: No midline shift. No intracranial mass effect or hemorrhage. Suresh- white matter interface is normal. Diffuse cerebral volume loss. Patchy areas of white matter hypoattenuation often associated with small vessel ischemic disease. Intracranial atherosclerotic calcification. Skull and face: Calvarium and visualized facial bones are intact, without suspicious lesions. Sinuses: Visualized sinuses and mastoids are clear. IMPRESSION: No acute intracranial pathology. Negative report called to Dr. Kumari at 11:09 a.m. PST 04/08/2025 This study fulfills neurological imaging criteria for inclusion or exclusion of acute stroke therapies based on available published neurological imaging guidelines. Dictated by: Leonel Finney M.D. on 04/08/2025 at 11:03 Approved by: Leonel Finney M.D. on 04/08/2025 at 11:09
--- NOTE | 2025-04-08 | DI.CT.S_ITS ---
PROCEDURE: CT ANGIO HEAD AND NECK INDICATIONS: STROKE TECHNIQUE: After the administration of intravenous contrast, 1 mm thick sections acquired from the aortic arch through the [place] of [place]. 3-dimensional kywadjm-qnhrnjsph-isjrpvggct (MIP) and/or volume rendering reformats were acquired of the central intracranial vasculature and neck separately. For radiation dose reduction, the following was used: automated exposure control, adjustment of mA and/or kV according to patient size. COMPARISON: [facility], CT, CT STROKE, 04/08/2025, 10:54. FINDINGS: Image quality: Diagnostic. Cerebral CT Angiogram: Internal carotid arteries: No acute findings. Intracranial ICA are patent with no significant stenosis. No occlusion. No aneurysm. Anterior cerebral arteries: Unremarkable. No significant stenosis. No occlusion. No aneurysm. Middle cerebral arteries: Unremarkable. No significant stenosis. No occlusion. No aneurysm. Posterior cerebral arteries: Unremarkable. No significant stenosis. No occlusion. No aneurysm. Basilar artery: Unremarkable. No significant stenosis. No occlusion. No aneurysm. Vertebral arteries: Unremarkable as visualized. Dural venous sinuses: Unremarkable given phase of enhancement. Other: Arterial phase appearance of the brain parenchyma is unremarkable. Neck CT Angiogram: Internal carotid arteries: Unremarkable. No significant stenosis. No dissection or occlusion. Common carotid arteries: Unremarkable. No significant stenosis. No dissection or occlusion. External carotid arteries: Unremarkable. No occlusion. Vertebral arteries: Unremarkable. No significant stenosis. No dissection or occlusion. Aortic Arch and Mediastinum: Partially visualized aortic arch unremarkable without evidence of aneurysm. Origins of the great vessels unremarkable. Other: Arterial phase soft tissues of the neck and chest are unremarkable. IMPRESSION: No significant intracranial arterial abnormality is seen. No significant abnormality is seen within the arteries of the neck. Any quantitative measurements of stenosis were performed using NASCET criteria. Dictated by: Graham Sanchez M.D. on 04/08/2025 at 11:28 Approved by: Graham Sanchez M.D. on 04/08/2025 at 11:31
--- NOTE | 2025-04-08 11:09 | ED.AMS ---
HPI - Altered Mental Status General Chief Complaint: Neuro Symptoms/Deficit Stated Complaint: Cods Stroke, 10 am LKW History of Present Illness HPI narrative: 84-year-old female past medical history osteoporosis, hypertension, vaginal pessary, prior pelvic fracture, was having breakfast with her family when she started to have difficulty speaking and became confused brought in via EMS for further evaluation at 10am. Per EMS report patient has a history AFib on Eliquis stopped taking it 30 days ago. Last KNW 830am and became symptomatic 1030am. Related Data Home Medications ?Medication ?Instructions ?Recorded ?Confirmed CoQ-10 1 cap PO DAILY 01/05/18 07/23/24 Vitamin D3 1 cap PO DAILY 01/05/18 07/23/24 multivitamin 1 tab PO DAILY 01/05/18 07/23/24 magnesium malate See Rx Instructions .Route .COMPLEX 10/07/18 07/23/24 Ferrochel Iron Bisglycinate - Now 18 mg PO DAILY 11/02/18 07/23/24 Brand Previous Rx's ?Medication ?Instructions ?Recorded metronidazole 0.75 % (37.5 mg/5 1 appful vaginal BEDTIME 5 days 03/05/24 gram) vaginal gel #70 grams oxyquinoline 0.025 %-sodium lauryl See Rx Instructions vaginal 07/23/24 sulfate 0.01 % vaginal gel .COMPLEX #113.4 grams (Trimo-Davenport Jelly) levothyroxine 25 mcg tablet 25 mcg PO DAILY #90 tabs 09/15/24 estradiol 0.01% (0.1 mg/gram) 1 g vaginal 3XW #42.5 grams 11/02/24 vaginal cream estradiol 10 mcg vaginal tablet 10 mcg vaginal 3XW #36 tabs 11/02/24 sotalol 80 mg tablet 40 mg (1/2 x 80 mg) PO BID #180 11/03/24 tabs Allergies Allergy/AdvReac Type Severity Reaction Status Date / Time prochlorperazine AdvReac Mild Petechiae Verified 07/23/24 13:21 (PROCHLORPERAZINE) Review of Systems Review of Systems ROS Unobtainable: Unobtainable due to medical condition Patient History Medical History Anemia Chronic lower back pain Encounter for annual wellness exam in Medicare patient Well adult on routine health check Melanoma (~2016) Sleep apnea Partial seizure (~1986) Herniated disc Scoliosis Disorder of lumbar spine Lumbar compression fracture Mumps Measles Chicken pox Cataracts, bilateral Presence of pessary (~2006) Hypothyroidism (~1979) Skin cancer (~2017) Atrial fibrillation (~2008) Healthy adult Surgical History Anesthesia Fracture of left radius (~07/2017) History of tubal ligation (~1970) History of tonsillectomy and adenoidectomy (~194) No pertinent past surgical history Family History Brother Dissecting aneurysm of thoracic aorta Sister Cancer Social History household members: spouse Smoking Status: Unknown if ever smoked second hand exposure: No alcohol intake: never substance use type: does not use alcohol intake frequency: 0-2 drinks per day Exam Narrative Exam Narrative: GENERAL: [84) year old patient appears stated age. Well-developed patient, in mild distress. HEAD: Atraumatic. Normocephalic. EYES: Pupils equal round and reactive. Extraocular motions intact. No scleral icterus. No injection or drainage. ENT: Nose without bleeding, purulent drainage. Throat without erythema, tonsillar hypertrophy or exudate. Airway patent. NECK: Trachea midline. Non tender CARDIOVASCULAR: Regular rate and rhythm without murmurs, gallops, or rubs. RESPIRATORY: Clear to auscultation. Breath sounds equal bilaterally. No wheezes, rales, or rhonchi. GASTROINTESTINAL: Abdomen soft, non-tender, nondistended. EXTREMITIES: No edema or joint tenderness. BACK: Nontender without deformity or crepitance. No flank tenderness. NEURO: AOx3. SKIN: No rash or erythema of visible areas Initial Vital Signs Initial Vital Signs: Vital Signs Temperature 98.1 F 04/08/25 10:45 Pulse Rate 71 04/08/25 10:45 Respiratory Rate 21 04/08/25 10:45 Blood Pressure 177/118 H 04/08/25 10:45 Pulse Oximetry 98 04/08/25 10:45 Oxygen Delivery Method Room Air 04/08/25 10:45 Scores NIH Stroke Scale Level of Conciousness: Alert, keenly responsive Ask month/age: Answers neither question correctly, aphasic, stuporous, coma Open/close eyes, close hand: Performs one task correctly Best gaze horizontal: Partial gaze palsy, can be overcome by finger tracking, head turning Visual fuller: Partial hemianopia Facial palsy: Partial paralysis, total or near total paralysis of lower face Left arm drift: No drift for full 10 sec Right arm drift: No drift for full 10 sec Left leg drift: No movement Right leg drift: No movement Limb ataxia: Present in two limbs Sensory on face/arms/legs: Severe to total sensory loss, not aware of touch, coma, quadriplegic Best language: Severe aphasia, not much is understood, fragmented Dysarthria: Severe, unintelligible Extinction or inattention: Visual, tactile, auditory, spatial or personal inattention to stimuli Total NIH Stroke scale score: 24 Course Orders Ordered: ED Orders 04/08/25 10:45 Complete Blood Count AUTO DIFF Stat Comprehensive Metabolic Panel Stat Troponin & CK Cardiac Panel Stat 04/08/25 11:03 PTT Partial Thromboplastin Justo Stat Prothrombin Time INR Stat 04/08/25 11:31 XR chest 1V Stat Urine Drug Screen, Rapid Stat EKG-12 Lead Stat 04/08/25 13:20 CT head/brain wo con Stat Ondansetron HCl (Ondansetron 4 Mg/2 Ml Inj) 4 mg IV NOW PRN PRN Reason: Nausea And Vomiting Ondansetron HCl (Ondansetron 4 Mg Odt) 4 mg PO NOW PRN PRN Reason: Nausea And Vomiting Discontinued Medications Labetalol HCl (Labetalol 20 Mg/4 Ml Syringe) 10 mg IV NOW ONE Stop: 04/08/25 12:07 Last Admin: 04/08/25 12:10 Dose: 5 mg Documented By: SB Labetalol HCl (Labetalol 20 Mg/4 Ml Syringe) 5 mg IV NOW ONE Stop: 04/08/25 12:40 Last Admin: 04/08/25 12:40 Dose: 5 mg Documented By: BZ Labetalol HCl (Labetalol 20 Mg/4 Ml Syringe) 5 mg IV NOW ONE Stop: 04/08/25 13:01 Last Admin: 04/08/25 13:03 Dose: 5 mg Documented By: BZ Tenecteplase (Tenecteplase 50 Mg Vial) 14 mg 0.25 mg/kg (14 mg) IV NOW ONE Stop: 04/08/25 12:07 Last Admin: 04/08/25 12:16 Dose: 14 mg Documented By: EILEEN Co-signed By: MARBIN Vital Signs Vital signs: Vital Signs - 8 hr 04/08/25 10:45 04/08/25 11:03 04/08/25 11:06 Temperature 98.1 F Pulse Rate 71 72 Respiratory Rate 21 Blood Pressure 177/118 H 177/118 H Pulse Oximetry 98 99 Oxygen Delivery Method Room Air 04/08/25 11:06 04/08/25 11:15 04/08/25 11:15 Temperature Pulse Rate 82 70 Respiratory Rate 16 21 Blood Pressure 178/129 H Pulse Oximetry 98 94 Oxygen Delivery Method Room Air 04/08/25 11:30 04/08/25 11:30 04/08/25 11:45 Temperature Pulse Rate 73 Respiratory Rate 17 Blood Pressure 166/92 H 169/120 H Pulse Oximetry 98 Oxygen Delivery Method 04/08/25 11:45 04/08/25 12:00 04/08/25 12:00 Temperature Pulse Rate 82 75 Respiratory Rate 21 17 Blood Pressure 174/108 H Pulse Oximetry 99 98 Oxygen Delivery Method 04/08/25 12:03 04/08/25 12:03 04/08/25 12:09 Temperature Pulse Rate 73 Respiratory Rate 17 Blood Pressure 180/93 H 186/98 H Pulse Oximetry 98 Oxygen Delivery Method 04/08/25 12:09 04/08/25 12:10 04/08/25 12:11 Temperature Pulse Rate 70 70 Respiratory Rate 16 Blood Pressure 189/98 H 182/85 H Pulse Oximetry 99 Oxygen Delivery Method 04/08/25 12:11 04/08/25 12:12 04/08/25 12:12 Temperature Pulse Rate 77 75 Respiratory Rate 14 16 Blood Pressure 187/101 H Pulse Oximetry 100 99 Oxygen Delivery Method 04/08/25 12:14 04/08/25 12:14 04/08/25 12:16 Temperature Pulse Rate 72 Respiratory Rate 16 Blood Pressure 179/89 H 174/89 H Pulse Oximetry 100 Oxygen Delivery Method 04/08/25 12:16 04/08/25 12:18 04/08/25 12:18 Temperature Pulse Rate 71 72 Respiratory Rate 14 15 Blood Pressure 162/93 H Pulse Oximetry 100 99 Oxygen Delivery Method 04/08/25 12:20 04/08/25 12:20 04/08/25 12:22 Temperature Pulse Rate 71 Respiratory Rate 20 Blood Pressure 153/102 H 176/82 H Pulse Oximetry 99 Oxygen Delivery Method 04/08/25 12:22 04/08/25 12:24 04/08/25 12:24 Temperature Pulse Rate 75 85 Respiratory Rate 22 23 Blood Pressure 151/90 H Pulse Oximetry 100 99 Oxygen Delivery Method 04/08/25 12:26 04/08/25 12:26 04/08/25 12:28 Temperature Pulse Rate 80 Respiratory Rate 20 Blood Pressure 178/99 H 171/87 H Pulse Oximetry 100 Oxygen Delivery Method 04/08/25 12:28 04/08/25 12:30 04/08/25 12:40 Temperature Pulse Rate 72 70 75 Respiratory Rate 16 15 Blood Pressure 172/111 H Pulse Oximetry 100 99 Oxygen Delivery Method Room Air 04/08/25 12:40 04/08/25 13:03 Temperature Pulse Rate 75 83 Respiratory Rate Blood Pressure 172/111 H 183/106 H Pulse Oximetry Oxygen Delivery Method MDM - Altered Mental Status Lab Data 04/08/25 10:45 04/08/25 10:45 Labs: Lab Results 04/08/25 04/08/25 Range/Units 10:45 11:03 WBC 6.3 (4.5-11.0) X10^3/uL RBC 5.57 H (4.0-5.2) X10^6/uL Hgb 16.3 H (12.0-16.0) g/dL Hct 48.9 H (36-46) % MCV 87.8 (80-100) fL MCH 29.2 (26-34) PG MCHC 33.3 (30-36) % RDW 13.8 (11.6-14.8) % Plt Count 246 (150-400) X10^3/uL Neut % (Auto) 66.2 (50-75) % Lymph % (Auto) 22.7 L (25-40) % Knox % (Auto) 8.5 (3-14) % Eos % (Auto) 1.5 L (2-4) % Baso % (Auto) 1.1 (0-2) % Neut # (Auto) 4200 (7983-3605) /uL Lymph # (Auto) 1400 (5605-7550) /uL Knox # (Auto) 500 (0-900) /uL Eos # (Auto) 100 (0-450) /uL Baso # (Auto) 100 (0-100) /uL PT 12.6 H (9.4-12.5) SECONDS INR 1.1 (0.9-1.3) APTT 30 (25.1-36.5) SECONDS Sodium 139 (137-145) mmol/L Potassium 4.3 (3.4-5.1) mmol/L Chloride 103 (98-107) mmol/L Carbon Dioxide 27 (22-32) mmol/L BUN 19 H (7-17) mg/dL Creatinine 0.65 (0.52-1.04) mg/dL Estimated GFR > 60 (>60) mL/min BUN/Creatinine Ratio 29.2 H (6-22) Glucose 90 (70-99) mg/dL Calcium 10.0 (8.4-10.2) mg/dL Total Bilirubin 0.7 (0.2-1.3) mg/dL AST 37 H (14-36) IU/L ALT 28 (<35) IU/L Alkaline Phosphatase 86 (38-126) U/L Total Creatine Kinase 81 (30-135) U/L Troponin I < 0.012 (0.01-0.034) ng/mL Total Protein 8.4 H (6.3-8.2) g/dL Albumin 4.9 (3.5-5.0) g/dL Globulin 3.5 (1.7-4.1) g/dL Albumin/Globulin Ratio 1.4 (1.0-2.8) Point of Care Testing Glucose POC [address] scan - head: Radiologist's Impression: [address] [address] [address] Scan Report Signed Patient: Juanita Rdz MR#: [id number] : 1940 Acct:[id number] Age/Sex: 84 / F Date of Service: 04/08/25 Loc: ED Accession Number: [id number] Procedure: CT Stroke Ordering Provider: Richard Kumari D.O. PROCEDURE: CT STROKE INDICATIONS: STROKE TECHNIQUE: Noncontrast 4.5 mm thick angled axial sections acquired from the foramen magnum to the vertex, with coronal reformats. For radiation dose reduction, the following was used: automated exposure control, adjustment of mA and/or kV according to patient size. COMPARISON: None. FINDINGS: Image quality: Diagnostic. CSF spaces: Basal cisterns are patent. No extra-axial fluid collections. Ventricles are normal in size and shape. Brain: No midline shift. No intracranial mass effect or hemorrhage. Suresh-white matter interface is normal. Diffuse cerebral volume loss. Patchy areas of white matter hypoattenuation often associated with small vessel ischemic disease. Intracranial atherosclerotic calcification. Skull and face: Calvarium and visualized facial bones are intact, without suspicious lesions. Sinuses: Visualized sinuses and mastoids are clear. IMPRESSION: No acute intracranial pathology. Negative report called to Dr. Kumari at 11:09 a.m. PST 04/08/2025 This study fulfills neurological imaging criteria for inclusion or exclusion of acute stroke therapies based on available published neurological imaging guidelines. Dictated by: Leonel Finney M.D. on 04/08/2025 at 11:03 Approved by: Leonel Finney M.D. on 04/08/2025 at 11:09 ECG Data Interpretation: Afib HR 66 ND undetermined QRS [address]-t wave change MDM Narrative Medical decision making narrative: All labwork, vital signs, statistics manager note, med list, previous ER visits and all imaging studies reviewed. Pt given TNK and labetalol in conjunction 1217pm TNk and 5mg Labetalol IV. Case d/w Neurolgist to go ahead with BP control and TNK at this time. Full on beds at request to see if [facility] available for which I spoke with Neuro at [facility]. ICU MD has accepted pt at [facility] ICU. Differential diagnosis hemorrhagic versus ischemic stroke seizure. Repeat Ct scan after tnk shows no acute process. Discharge Plan Departure Patient Disposition: Xfer Acute [facility] Clinical Impression: Acute CVA (cerebrovascular accident) Prescriptions: No Action Ferrochel Iron Bisglycinate - Now Brand 18 mg PO DAILY Patient Comments: Started on 12/13/16. estradiol 10 mcg tablet 10 mcg vaginal 3XW Qty: 36 3RF estradiol 0.01 % (0.1 mg/gram) cream 1 g vaginal 3XW Qty: 42.5 12RF Rx Instructions: Apply 1 g PV hs x7 days, then PV hs 3 nights weekly sotalol 80 mg tablet 40 mg PO BID Qty: 180 1RF Rx Instructions: 40 mg in the AM, 40 mg in PM metronidazole 0.75 % (37.5mg/5 gram) gel 1 appful vaginal BEDTIME 5 Days Qty: 70 3RF Trimo-Davenport Jelly 0.025-0.01 % gel See Rx Instructions vaginal .COMPLEX Qty: 113.4 12RF Rx Instructions: Apply 1 full applicator vaginally each week. levothyroxine 25 mcg tablet 25 mcg PO DAILY Qty: 90 3RF magnesium malate See Rx Instructions .ROUTE .COMPLEX Patient Comments: 1/2 tsp mixed with protein shake PO DAILY. Rx Instructions: 1/2 tsp mixed with protein shake PO DAILY. multivitamin Tablet 1 tab PO DAILY CoQ-10 1 cap PO DAILY Vitamin D3 1 cap PO DAILY Referrals: Luis A Knox DO [Primary Care Provider, Family Practice]
--- NOTE | 2025-04-08 11:31 | DI.RAD.S_ITS ---
PROCEDURE: XR CHEST 1V INDICATIONS: Possible stroke TECHNIQUE: One view of the chest was acquired. COMPARISON: [facility], CR, XR CHEST 1V, 09/02/2024, 16:09. [facility], CR, XR CHEST 1V, 05/20/2018, 2:15. FINDINGS: Surgical changes and devices: None. Lungs and pleura: Lungs are clear. No pleural effusions or pneumothorax. Mediastinum: Mediastinal contours appear normal. Heart size is at the upper limits of normal. Bones and chest wall: No suspicious bony lesions. Overlying soft tissues appear unremarkable. IMPRESSION: No acute cardiopulmonary abnormality is seen. Heart size at the upper limits of normal, perhaps accentuated by relatively prominent chronic convex leftward scoliosis. Dictated by: Corbin Lion M.D. on 04/08/2025 at 13:06 Approved by: Corbin Lion M.D. on 04/08/2025 at 13:06
--- NOTE | 2025-04-08 11:31 | EKG_ITS ---
[place] [id number] [place] [id number] Test Date: 2025-04-08 Pat Name: Juanita Rdz Department: Room: Gender: Female Telecom Specialist: ADIEL : 1940 Requested By: Order Number: [id number] Reading MD: Richard Castelan MD Measurements Intervals [place] Rate: 66 P: MS: QRS: 51 QRSD: 76 T: -41 QT: 416 QTc: 436 Interpretive Statements Atrial fibrillation ST & T wave abnormality, consider anterolateral ischemia Electronically Signed On 04-08-2025 15:58:30 PST by Richard Castelan MD
--- NOTE | 2025-04-08 11:31 | PC.NURSE ---
Patient not able to lift legs, but able to pull and push on feet. Patient is not verbal at this time. Patient is able to nod head to answer questions. Patient's last known normal per spouse is 8:30AM today.
[2025-04-08 11:38] LABS: INR 1.1 (0.9-1.3); Prothrombin Time 12.6 SECONDS (9.4-12.5)
[2025-04-08 11:40] LABS: Add Manual Diff / Slide Review NO; Hematocrit 48.9 % (36-46); Hemoglobin 16.3 g/dL (12.0-16.0); Lymphocytes Absolute Auto 1400 /uL (1100-4500); Mean Corpuscular HGB Conc 33.3 % (30-36); Mean Corpuscular Hemoglobin 29.2 PG (26-34); Mean Corpuscular Volume 87.8 fL (80-100); Platelet Count 246 X10^3/uL (150-400)
[2025-04-08 11:41] LABS: PTT Partial Thromboplastin Tim 30 SECONDS (25.1-36.5)
[2025-04-08 11:43] LABS: Alanine Aminotransferase 28 IU/L (<35); Albumin 4.9 g/dL (3.5-5.0); Albumin Globulin Ratio 1.4 (1.0-2.8); Alkaline Phosphatase 86 U/L (38-126); Blood Urea Nitrogen 19 mg/dL (7-17); Calcium 10.0 mg/dL (8.4-10.2); Carbon Dioxide 27 mmol/L (22-32); Chloride 103 mmol/L (98-107); Creatine Kinase 81 U/L (30-135); Estimated Glomerular Filt Rate > 60 mL/min (>60); Globulin 3.5 g/dL (1.7-4.1); Glucose 90 mg/dL (70-99); HEMOLYSIS < 15 (0-50); Potassium 4.3 mmol/L (3.4-5.1); Sodium 139 mmol/L (137-145); Total Protein 8.4 g/dL (6.3-8.2)
[2025-04-08 11:54] LABS: Troponin I < 0.012 ng/mL (0.01-0.034)
[2025-04-08] MEDS: LABETALOL 20 MG/4 ML SYRINGE 10 MG IV (12:10)
[2025-04-08] MEDS: TENECTEPLASE 50 MG VIAL 14 MG IV (12:16)
--- NOTE | 2025-04-08 12:27 | PC.NURSE ---
1217 Patient given TNK with pharmacist Adele at bedside. Adele jennifer up TNK. neuro on screen at time of admin order bp to be maintained under 180/105.
--- OUTSIDE RECORDS SUMMARY | 2025-04-08 12:28 | XMS_ITS | Clinical Summary ---
Author Organization [facility] Address [address] [place] [address] Care Team Providers Care Chick Sexer Name Role Phone Knox, Luis A Llanes DO Primary Care Provider [phone] Allergies Active Allergy Reactions Criticality Noted Date Comments Prochlorperazine Rash Low 08/18/2010 Medications multivitamin (THERAGRAN) tablet tablet Take 1 tablet by mouth daily 0 Active cholecalciferol , vitamin D3, 125 mcg (5,000 unit) capsule Take 1 capsule (5,000 Units total) by mouth daily Active coenzyme Q10 100 mg capsule Take 100 mg by mouth daily Active LUTEIN-ZEAXANTH IN ORAL Take 1 tablet by mouth daily Active calcium carb/mag oxide/Cu/zinc (CALCIUM-MAGNES NMF-[id number]-XOTQ ORAL) Take by mouth Active estradioL (ESTRACE) 0.01 % (0.1 mg/gram) vaginal cream Three times a week 4 Active sotaloL (BETAPACE) 80 mg tablet Take 1 tablet (80 mg total) by mouth every morning AND 0.5 tablets (40 mg total) every evening. 135 tablet 3 4 Active Additional Information Patient taking differently: Takes 0.5 tab in AM and 0.5 tab PM, Reported on 01/24/2025 PNV 55/iron fum,b-g/folic acid (NATACHEW, FE BIS-GLYCINATE, ORAL) Take 18 mg by mouth 2 (two) times a day Active levothyroxine (SYNTHROID) 25 mcg tablet take 1 tablet by mouth every morning before MEALS 90 tablet 4 Active cetirizine 10 mg capsule Take 10 mg by mouth daily Active estradioL 10 mcg tablet INSERT ONE TABLET (10MCG) VAGINALLY THREE TIMES A WEEK 5 Active ascorbic acid, vitamin C, (vitamin C) 1,000 mg tablet Take 1 tablet (1,000 mg total) by mouth daily Active b complex vitamins tablet Take 1 tablet by mouth daily Active calcium carb, citrate, malate 250 mg calcium capsule Take 500 mg by mouth daily Calcium malate powder Active CREATININE, BULK, MISC Take 3.5 g by mouth daily Active sotaloL (BETAPACE) 120 mg tablet Take 0.5 tablets (60 mg total) by mouth daily 45 tablet 3 5 01/26/20 26 Active sotaloL (BETAPACE) 80 mg tablet Take 0.5 tablets (40 mg total) by mouth nightly 45 tablet 3 5 01/26/20 26 Active meloxicam (MOBIC) 7.5 mg tablet Take 1 tablet (7.5 mg total) by mouth daily 60 tablet 1 5 Active Active Problems Problem Noted Date Diagnosed Date Nonrheumatic mitral valve regurgitation 01/26/20 19 Enlarged LA (left atrium) 01/25/2019 Nonrheumatic tricuspid valve regurgitation 01/25 Aortic insufficiency 05/27/2018 Overview (05/27/2018): Overview: mild Persistent atrial fibrillation 05/27/2018 Overview (05/27/2018): Overview: isolated occurrence Mar 2009 Assessment & Plan (05/27/2018 11:36 AM [facility]): Currently she is in atrial fibrillation with a respiratory rate of 96 bpm. It appears that she has paroxysmal so hopefully she converts back to sinus rhythm. However would like to monitor her atrial for ablation over the next few months to see if she more atrial for ablation then sinus rhythm. If she does then we will have to rediscuss about rate control medications in light of her chronic but asymptomatic low blood pressure. She was quite reluctant about starting diltiazem or beta blockers because of previous side effects with beta blockers and the concerns of diltiazem causing low blood pressure on top of her chronic intermittent episodes of hypotensive episodes. We discussed at length as well about anticoagulants. She is willing to go on Xarelto 20 mg by mouth daily at bedtime. Her GFR is more than 50. She will need to stop taken a baby aspirin and started taken Xarelto. Obstructive sleep apnea syndrome 05/27/2018 Chronic anticoagulation 05/27/2018 Overview (05/27/2018): On Xarelto 20 mg once a day for a-fib Assessment & Plan (05/27/2018 11:37 AM PST): Will start on Xarelto 20 mg by mouth daily at bedtime for atrial fibrillation. Repeat BMP and CBC in 6 months. 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 But no symptoms. Continue to monitor for now. Might be a little bit difficult to put her rate control medical therapy if she does have more of a persistent atrial fibrillation. 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 (CMS/HCC) (Primary Dx); Hx of concussion; History of traumatic brain injury; BELLO on CPAP 01/25/2025 Telephone [facility] Cardiology [address], [place] [phone] Samantha Mensah MD 01/24/2025 9:30 AM PDT Office Visit [facility] Cardiology [address], [place] [phone] Samantha Mnesah MD Persistent atrial fibrillation (CMS/HCC) (Primary Dx); Nonrheumatic aortic valve insufficiency; Nonrheumatic mitral valve regurgitation; Enlarged LA (left atrium) 01/14/2025 [facility] Information Management [address] [place] [phone] [facility] [employer], Provider, 01/13/2025 Telephone [facility] Neurology [place] [address] [facility] [address] [place] [phone] [place] Park ARNP from Last 3 Months Immunizations Immunization Administration Dates Next Due Moderna SARS-CoV-2 Vaccine Monovalent 07/06/2020 ,06/08/2020 Family History Medical History Relation Comments Aortic aneurysm Brother Osteoarthritis Father Hypertension Mother Relation Status Comments Brother (Age 66) Father Mother Social History Tobacco Use Types Packs/Day Years Used Date Smoking Tobacco: Former Smokeless Tobacco: Former Quit: 11/14/1966 Tobacco Cessation:Counseling Given: Not Answered Comments:Quit 1966 Alcohol Use Standard Drinks/Week Comments No 0 (1 standard drink = 0.6 oz pur e alcohol) Comments Unknown Sex and Gender Information Value Date Recorded Sex Assigned at Not on file Legal Sex Female 5:06 PM PDT Gender Identity Not on file Sexual Orientation Not on file Last Filed Vital Signs Vital Sign Reading Time Taken Comments Blood Pressure 150/86 02/03/2025 12:53 PM PDT Pulse 70 02/03/2025 12:53 PM PDT Temperature 36.3 C (97.3 F) 10/01/2022 10:20 AM PDT Respiratory Rate 12 10/01/2022 12:20 PM PDT Oxygen Saturation 99% 02/03/2025 12:53 PM PDT Inhaled Oxygen Concentration - - Weight 54 kg (119 lb) 02/03/2025 12:53 PM PDT Height 149.9 cm (4' 11.02) 02/03/2025 12:53 PM PDT Body Mass Index 24.02 02/03/2025 12:53 PM PDT Plan of Treatment Upcoming Encounters Date Type Department Care Team (Late st Contact Info) Description 06/07/2025 1:00 PM PST Office Visit [facility] Cardiology [place] [address], [place] [phone] Samantha Mensah MD [address] [facility] [place] [address] Health Maintenance Due Date Last Done Comments Medicare Annual Wellness (AWV) 1940 Depression Screening (PHQ-2) 1952 Fall Risk Screening 06/22/2004 RSV Patients Over 60 years OR qualifying ( Patients) (1 - 1-dose 75+ series) 06/22/2014 COVID-19 Vaccine ( season) 2025 01/19/2025, 07/12/2024, 12/24/2023, Additional history exists DTaP,Tdap,and Td Vaccines (3 - Td or Tdap) 07/12/2034 07/12/2024, 06/17/2011 Varicella Vaccines Discontinued 06/20/2011 [facility] Pneumococcal Adult 50+ Completed 02/17/2015, [facility] Pneumococcal Combined Age 0-49 Discontinued 02/17/2015, 04/02/2005 Zoster Vaccines Completed 01/07/2019, 06/2018, 06/20/2011 Influenza Vaccine Completed 12/02/2024, , 01/24/2023, Additional history exists HPV Vaccines Aged Out No longer eligi ble based on patient's age to complete this topic Hepatitis A Vaccines Aged Out No long er eligible based on patient's age to complete this topic Hepatitis B Vaccines Aged Out No long er eligible based on patient's age to complete this topic IPV Vaccines Aged Out No longer eligi ble based on patient's age to complete this topic MMR Vaccines Aged Out No longer eligi ble based on patient's age to complete this topic Procedures Procedure Name Priority Date/Time Associated Diagnosis Comments ECG 12-LEAD Routine 01/24/2025 9:23 AM PDT Persistent atrial fibrillation (CMS/HCC) from Last 3 Months Results * ECG 12 Lead (Clinic - Same Day) (01/24/2025 9:23 AM PDT) HR 70 bpm [facility] I[facility]G RR 857 ms [facility] IECG TN [facility] I[facility]G QRSD 89 ms [facility] I[facility]G QT 433 ms [facility] I[facility]G QTc 468 ms [facility] I[facility]G QRS 58 deg [facility] I[facility]G T 6 deg [facility]G Impression - ABNORMAL ECG - [facility] IECG Impression Atrial fibrillation [facility] IECG Impression Nonspecific T abnormalities, anterior leads [facility] IECG Impression Abnormal R-wave progression, late transition [facility] IECG Impression When compared with ECG of 25-Feb-2024 10:47:56, [facility] IECG Impression Previously sinus rhythm, worsening repolarization changes [facility] IECG Impression Change in clinical status [facility] IECG 01/24/2025 9:23 AM PDT us Samantha Mensah MD ECG ORDERABLES Final Result [facility] IECG from Last 3 Months Insurance [employer] PPO Advance Directives * Full Code (Latest Code Status on File) Date Activated Date Inactivated Comments 10/01/2022 10:38 AM 10/02/2022 2:42 AM * Full Code Date Activated Date Inactivated Comments 02/22/2019 8:30 AM 02/24/2019 5:17 PM Care Teams Chick Sexer Relationship Specialty Start Date End Date Luis A Knox DO [address] [place] [address], [address] [place], [place] [id number] PCP - General Rn Diabetes 01/14/25
--- NOTE | 2025-04-08 12:30 | PC.NURSE ---
1224 Patient is able to lift left and right leg.
[2025-04-08] MEDS: LABETALOL 20 MG/4 ML SYRINGE 5 MG IV ×3 (12:40→13:52)
--- NOTE | 2025-04-08 13:09 | PC.NURSE ---
1259 Provider Quoc made aware pt bp 183/106. provider Quoc places verbal order for 5mg IV labetalol.
--- NOTE | 2025-04-08 13:20 | DI.CT.S_ITS ---
PROCEDURE: CT HEAD/BRAIN WO CON INDICATIONS: headache after TNK TECHNIQUE: Noncontrast 4.5 mm thick angled axial sections acquired from the foramen magnum to the vertex, with coronal and sagittal reformats. For radiation dose reduction, the following was used: automated exposure control, adjustment of mA and/or kV according to patient size. COMPARISON: [facility], CT, CT STROKE, 04/08/2025, 10:54. FINDINGS: Image quality: Diagnostic. CSF spaces: Basal cisterns are patent. No extra-axial fluid collections. The ventricles are symmetric in size and shape. Brain: No intracranial bleeds or mass effect. There is cerebral volume loss, with resultant ventricular and sulcal prominence. There are periventricular and deep white matter chronic small vessel ischemic changes. There is intracranial internal carotid artery atherosclerosis. Skull and face: Calvarium and visualized facial bones appear intact, without suspicious lesions. Sinuses: Visualized sinuses and mastoids are clear. IMPRESSION: No intracranial hemorrhage after TNK administration. No acute intracranial process noted. Comment: Recommend brain MRI. Dictated by: Graham Sanchez M.D. on 04/08/2025 at 14:00 Approved by: Graham Sanchez M.D. on 04/08/2025 at 14:02
--- NOTE | 2025-04-08 13:21 | PC.NURSE ---
1318 Miles Kumari made aware of pt complaint of headache and recent BPs. New verbal order from provider Quoc for stat head ct with out contrast.
--- NOTE | 2025-04-08 13:42 | PC.NURSE ---
1335 Provider Kumari at bedside and verbal order placed for 10mg of hydrazine IV.
[2025-04-08 15:56] LABS: Ur Specific Gravity Normal (Normal)
[2025-04-08 15:57] LABS: UR Morphine/Opiate cutoff 300 Negative (Negative); Urine MDMA Negative (Negative); Urine Methamphetamines Negative (Negative); Urine Tetrahydrocannabinol Negative (Negative); Urine Tricyclic Antidepressant Negative (Negative)
--- NOTE | 2025-04-08 16:02 | PC.NURSE ---
1520 Patient unable to void after being placed on [place], patient has approx 600ml in bladder (from bladder scan). Provider Quoc made aware of [facility] cath policy. Provider Quoc verbal orders straight cath, straight cath unsuccessful. Small amount of bleeding observed, provider Quoc made aware. Armida Kumari ok to insert indwelling cath, indwelling cath placed at 1530. Bleeding is no longer observed and yellow colored urine flows into silva bag.
[2025-04-08 16:14] LABS: Culture Indicated Urine Specimen Cultured
--- NOTE | 2025-04-08 19:45 | PC.NURSE ---
1200 Patient has facial droop, unable to move forward with swallow screening.
== END 2025-04-08 15:40 | disposition short-term general hospital (02) ==
PROVIDERS: Emergency Provider Family Medicine; Family Provider Internal Medicine Cardiovascular Disease; PCP Family Medicine
DX: I63.9 Cerebral infarction, unspecified (principal); R41.0 Disorientation, unspecified; I10 Essential (primary) hypertension
CPT/HCPCS: 36415; 51701; 70450; 70496; 70498; 71045; 80053; 80305; 81003; 81015; 82550; 82962; 84484; 85025; 85610; 85730; 87086; 93005; 96374; 96375; 96376; 99285; 99291; 99292; J3101; Q9967